=== PATIENT | male | born 1955 | race Caucasian/White ===

== ENCOUNTER 2017-10-07 19:05 | Emergency (ER) | payer MEDICARE ==
[2017-10-07 20:13] LABS: #Basophils 0.1 thou/uL (0.0-0.2); #Eosinphils 0.3 thou/uL (0.0-0.7); #Lymphocytes 3.6 thou/uL (1.20-3.40); #Monocytes 1.3 thou/uL (0.11-0.59); #Neutrophils 8.9 thou/uL (1.40-6.50); %Basophils 0.9 % (0.0-1.0); %Eosinophils 2.3 % (0.0-10.0); %Lymphocytes 25.1 % (21.0-51.0); %Neutrophils 62.7 % (42.0-75.0); Hemoglobin 14.1 g/dL (14.0-18.0); Mean Corpuscular HGB CONC 33.5 g/dL (32.0-36.0); Mean Corpuscular Hemoglobin 32.1 pg (27.0-31.0); Mean Corpuscular Volume 95.7 fl (80.0-94.0); Mean Platelet Volume 8.2 fL (7.4-10.4); Platelet Count 390 thou/uL (130-400); RBC Distribution Width 11.1 % (11.5-14.5); White Blood Cell (WBC) Count 14.3 thou/uL (4.8-10.8)
[2017-10-07 20:41] LABS: ALT (SGPT) 18 U/L (8-55); AST (SGOT) 16 U/L (5-34); Albumin 4.3 g/dL (3.4-4.8); Alkaline Phosphatase 83 U/L (40-150); Anion Gap 14 mmol/L (10-20); BUN (Urea Nitrogen) 31 mg/dL (8.4-25.7); Bilirubin, Total 1.3 mg/dL (0.2-1.2); Calc. Creatinine Clearance 0 mL/min (70-130); Calcium 10.3 mg/dL (7.8-10.44); Carbon Dioxide 25 mmol/L (23-31); Chloride 101 mmol/L (98-107); Estimated GFR-MDRD 44; Globulin 3.8 g/dL (2.4-3.5); Glucose 245 mg/dL (80-115); Protein, Total 8.1 g/dL (5.8-8.1); Sodium 136 mmol/L (136-145)
[2017-10-07] MEDS ORDERED: Sterile Water 10 ML ONE (20:54)
[2017-10-07] MEDS ORDERED: methylPREDNISolone Sod Succ/PF 125 MG/2 ML VIAL ONE (20:54)
--- NOTE | 2017-10-07 22:25 | RAD ---
CHEST TWO VIEWS: History: Dyspnea. Comparison: Chest one view, 09-09-13. FINDINGS: Lungs are clear. No pneumothorax or effusion. Cardiac silhouette and mediastinal contours within norm al limits. There is an area of sclerosis in the right humeral head. IMPRESSION: 1. No acute intrathoracic abnormality. 2. Area of sclerosis in the right humeral head which may represent an area of avascular necrosis. Elsa der radiographs recommended. POS: [facility]
== END 2017-10-07 21:10 | disposition home or self-care (01) ==
LOC: ERS 19:05
DX: J20.9 Acute bronchitis, unspecified (principal); E11.9 Type 2 diabetes mellitus without complications; I10 Essential (primary) hypertension; E78.5 Hyperlipidemia, unspecified; F17.210 Nicotine dependence, cigarettes, uncomplicated
CPT/HCPCS: 36415; 71046; 80053; 85025; 94640; 96372; A4216; J2930; J7620

== ENCOUNTER 2018-01-01 21:08 | Emergency (ER) | payer MEDICARE, MEDICAID ==
[2018-01-01] MEDS ORDERED: HYDROcodone/Acetaminophen 5/325 mg Tablet ONE (22:20)
--- NOTE | 2018-01-01 22:36 | RAD ---
RIGHT FOOT THREE VIEWS: 01/01/18 HISTORY: 62-year-old male with history of right foot pain following a mechanical fall this morning. There is some prominent soft tissue swelling of the forefoot and midfoot, particularly anteriorly. He terogeneous bony demineralization and fairly severe degenerative osteoarthrosis changes including briseida e hallux valgus deformity. Prominent vascular calcifications. No acute fracture or dislocation. IMPRESSION: Soft tissue swelling with degenerative changes and vascular calcifications without acute fracture or dislocation. POS: [facility]
--- NOTE | 2018-01-01 23:00 | RAD ---
RIGHT ANKLE THREE VIEWS: 01/01/18 HISTORY: 62-year-old male with history of right ankle pain following a mechanical fall this morning. There is some soft tissue swelling noted at the level of the ankle. There is some heterogeneous bony demineralization as well as some minimal arthritic changes and prominent vascular calcification. Ther e is a small bony density between the lateral talus and the fibular tip, this could conceivably repre sent a tiny avulsion injury, age indeterminate. IMPRESSION: Minimal soft tissue swelling without evidence for overt acute fracture or dislocation. Heterogeneous bone demineralization with some arthrosis and degenerative changes. Tiny bone density between the lat eral talus and fibular tip possibly related to an avulsion injury, age indeterminate. POS: [facility]
== END 2018-01-01 23:03 | disposition home or self-care (01) ==
LOC: ERS 21:08
DX: S93.401A Sprain of unspecified ligament of right ankle, initial encounter (principal); E11.9 Type 2 diabetes mellitus without complications; I10 Essential (primary) hypertension; E78.00 Pure hypercholesterolemia, unspecified; F17.210 Nicotine dependence, cigarettes, uncomplicated; Z79.82 Long term (current) use of aspirin; Z79.899 Other long term (current) drug therapy; Z79.84 Long term (current) use of oral hypoglycemic drugs; X50.1XXA Overexertion from prolonged static or awkward postures, initial encounter

== ENCOUNTER 2018-03-11 15:15 | Inpatient (IN) | payer MEDICARE, MEDICAID ==
--- NOTE | 2018-03-11 15:55 | RAD ---
CHEST PA AND LATERAL: HISTORY: A 62-year-old male with a history of fever. COMPARISON: 10/07/17. FINDINGS: Postop posterior surgical changes of the cervicothoracic junction, stable. Heart size is within norm al limits. The lungs are clear. IMPRESSION: No acute intrathoracic disease. No evidence of pneumonia. Stable appearance from prior study. POS: [facility]
[2018-03-11 16:28] LABS: Band 20 % (5-11); Dohle Bodies SLIGHT; Hemoglobin 10.7 g/dL (14.0-18.0); Lymphocytes 4 % (21-51); MDiff Complete? YES; Mean Corpuscular HGB CONC 35.1 g/dL (32.0-36.0); Mean Corpuscular Hemoglobin 32.1 pg (27.0-31.0); Mean Corpuscular Volume 91.4 fl (80.0-94.0); Mean Platelet Volume 9.6 fL (7.4-10.4); Monocytes 5 % (0-10); Neutrophil 70 % (42-75); PLT Morphology Comment Appears Adequate; Platelet Count 201 thou/uL (130-400); RBC Distribution Width 11.6 % (11.5-14.5); Reactive Lymphocytes 1 % (0-10); Red Blood Cell (RBC) Count 3.34 mill/uL (4.70-6.10); Toxic Granulation SLIGHT; Vacuoles SLIGHT; White Blood Cell (WBC) Count 23.9 thou/uL (4.8-10.8)
[2018-03-11 16:30] LABS: Anion Gap 19 mmol/L (10-20); BUN (Urea Nitrogen) 64 mg/dL (8.4-25.7); Calc. Creatinine Clearance 0 mL/min (70-130); Calcium 9.7 mg/dL (7.8-10.44); Carbon Dioxide 18 mmol/L (23-31); Chloride 100 mmol/L (98-107); Estimated GFR-MDRD 15; Glucose 179 mg/dL (80-115); Potassium 4.2 mmol/L (3.5-5.1); Sodium 133 mmol/L (136-145)
[2018-03-11 16:40] LABS: Bilirubin Small (Negative); Blood, Urine Trace (Negative); Clarity Cloudy (Clear); Glucose, Urine (Dipstick) Negative (Negative); Leukocyte Negative (Negative); Nitrite Negative (Negative); Protein, Urine (Dipstick) 100 mg/dL (Neg-Trace); Urobilinogen 0.2 mg/dL (0.2-1.0)
[2018-03-11 16:47] LABS: Bacteria/HPF 1+ HPF (None Seen); Squamous Epithelial 0-3 HPF (0-3); WBC/HPF 0-3 HPF (0-3)
[2018-03-11 16:48] LABS: Crystals/HPF 1+ AMORPH URATES HPF (Negative); Other Casts/LPF 0-3 COARSE GRAN LPF (0-3 Hyaline)
[2018-03-11 17:03] LABS: ALT (SGPT) 27 U/L (8-55); AST (SGOT) 71 U/L (5-34); Albumin 3.7 g/dL (3.4-4.8); Alkaline Phosphatase 70 U/L (40-150); Bilirubin, Direct 0.7 mg/dL (0.1-0.3); Bilirubin, Total 1.5 mg/dL (0.2-1.2); Lipase 8 U/L (8-78); Protein, Total 7.5 g/dL (5.8-8.1)
[2018-03-11] MEDS ORDERED: Piperacillin/Tazobactam 3.375 GM VIAL ONE (17:20)
[2018-03-11] MEDS ORDERED: Sodium Chloride 0.9% 100 ML ONE (17:20)
[2018-03-11] MEDS ORDERED: Sodium Bicarb 50 MEQ/50 ML Abboject 8.4% SYRINGE ONE (17:43)
[2018-03-11] MEDS ORDERED: Norepinephrine 4 MG/4 ML VIAL ONE ×2 (18:00→18:02)
[2018-03-11] MEDS ORDERED: diphenhydrAMINE 50 MG/ML VIAL ONE (18:42)
--- NOTE | 2018-03-11 19:47 | RAD ---
PORTABLE SUPINE ABDOMEN: INDICATIONS: Assess central line placement via the left femoral vein. FINDINGS: Soft tissue attenuation obscures detail. A catheter overlies the left femoral vein, and the tip appe ars located in the region of the left iliac vein. Bowel gas pattern is unremarkable, although poorly evaluated on this portable projection. POS: [facility]
[2018-03-11] MEDS ORDERED: Sodium Chloride 0.9% 1,000 ML IV SCH (20:15)
[2018-03-11] MEDS: Sodium Chloride 0.9% 1,000 ML IV SCH (20:58)
[2018-03-11] MEDS ORDERED: Norepinephrine 8 MG/250 ML BAG IVPB PRN (22:13)
[2018-03-11] MEDS ORDERED: Dextrose 5% in Water 1,000 ML IV PRN (23:25)
[2018-03-11] MEDS ORDERED: Dextrose 50% Abboject 50 ML SYRINGE SLOW IVP PRN (23:25)
[2018-03-11] MEDS ORDERED: HumaLOG 300 UNITS/3 ML VIAL SC PRN (23:25)
[2018-03-11] MEDS ORDERED: Guaifenesin DM 100-10/5 ML UDCUP PO PRN (23:25)
[2018-03-11] MEDS ORDERED: Acetaminophen 325 MG TAB PO PRN (23:25)
[2018-03-11] MEDS ORDERED: Vancomycin HCl 500 MG in Sodium Chloride 0.9% 100 ML IVPB SCH (23:30)
[2018-03-11] MEDS ORDERED: Cefepime 1 GM in Sodium Chloride 0.9% 100 ML IVPB SCH (23:30)
--- NOTE | 2018-03-11 23:52 | RAD ---
PORTABLE CHEST: HISTORY: Sepsis. COMPARISON: 09/09/2013 FINDINGS: The lungs appear clear. No infiltrate or vascular congestion is seen. The heart is mildly prominent but stable. IMPRESSION: No acute lung process. POS: [facility]
[2018-03-12] MEDS ORDERED: HOLD VANCOMYCIN FOR LEVEL >20 FS SCH (01:15)
[2018-03-12] MEDS ORDERED: Vancomycin HCl 750 MG in Sodium Chloride 0.9% 250 ML 250 ML IVPB SCH (01:15)
[2018-03-12] MEDS ORDERED: Vancomycin HCl 1 GM in Premix Bag 1 BAG IVPB SCH (01:15)
[2018-03-12] MEDS ORDERED: Vancomycin HCl 1.25 GM in Sodium Chloride 0.9% 250 ML 250 ML IVPB SCH (01:15)
[2018-03-12] MEDS ORDERED: Vancomycin HCl 500 MG in Sodium Chloride 0.9% 100 ML IVPB SCH (01:15)
[2018-03-12 01:57] LABS: Bilirubin Negative (Negative); Blood, Urine Moderate (Negative); Clarity CLOUDY (Clear); Glucose, Urine (Dipstick) Negative (Negative); Leukocyte Negative (Negative); Nitrite Negative (Negative); Protein, Urine (Dipstick) 30 mg/dL (Neg-Trace); Specific Gravity, Urine 1.014 (1.002-1.036); pH, Urine 5.5 (5.0-9.0)
[2018-03-12 01:59] LABS: Squamous Epithelial 0-3 HPF (0-3); WBC/HPF 0-3 HPF (0-3)
[2018-03-12 02:01] LABS: Pathc Cast-AUWi Flag 4.94 (0-2.49); Yeast-AUWi Flag 67.1 (0-25.0)
[2018-03-12 02:11] LABS: RBC/HPF 0-3 HPF (0-3)
[2018-03-12 02:12] LABS: Bacteria/HPF Rare-Few HPF (None Seen); Hyaline Casts/LPF 4-6 HYALINE CAST LPF (0-3 Hyaline); Other Casts/LPF 0-3 COARSE GRAN LPF (0-3 Hyaline); Yeast-All Forms None Seen HPF (None Seen)
[2018-03-12] MEDS: Sodium Chloride 0.9% 1,000 ML IV SCH ×4 (03:55→23:39)
[2018-03-12 05:21] LABS: ALT (SGPT) 31 U/L (8-55); AST (SGOT) 62 U/L (5-34); Albumin 3.2 g/dL (3.4-4.8); Alkaline Phosphatase 84 U/L (40-150); Anion Gap 19 mmol/L (10-20); BUN (Urea Nitrogen) 62 mg/dL (8.4-25.7); Calc. Creatinine Clearance 34 mL/min (70-130); Calcium 8.6 mg/dL (7.8-10.44); Carbon Dioxide 17 mmol/L (23-31); Chloride 106 mmol/L (98-107); Estimated GFR-MDRD 20; Globulin 3.4 g/dL (2.4-3.5); Glucose 215 mg/dL (80-115); Protein, Total 6.6 g/dL (5.8-8.1); Sodium 138 mmol/L (136-145)
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
[2018-03-12 07:27] LABS: Band 38 % (5-11); Burr Cells SLIGHT = 2-5 cells (100X) (0-1/hpf); Hemoglobin 10.7 g/dL (14.0-18.0); Lymphocytes 6 % (21-51); MDiff Complete? YES; Mean Corpuscular HGB CONC 33.6 g/dL (32.0-36.0); Mean Corpuscular Hemoglobin 32.3 pg (27.0-31.0); Monocytes 5 % (0-10); Neutrophil 51 % (42-75); PLT Morphology Comment Appears Adequate; Platelet Count 246 thou/uL (130-400); RBC Distribution Width 12.1 % (11.5-14.5); Red Blood Cell (RBC) Count 3.32 mill/uL (4.70-6.10); White Blood Cell (WBC) Count 23.1 thou/uL (4.8-10.8)
[2018-03-12] MEDS: Docusate 100 MG CAP PO SCH ×2 (08:07→21:03)
[2018-03-12] MEDS: Famotidine 20 MG TAB PO SCH (08:07)
[2018-03-12] MEDS: Polyethylene Glycol 3350 17 GM Packet PO SCH (08:07)
[2018-03-12] MEDS: Enoxaparin Sodium 30 MG/0.3 ML SYRINGE SC SCH (08:07)
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
[2018-03-12] MEDS: HumaLOG 300 UNITS/3 ML VIAL SC PRN ×3 (09:52→21:12)
--- NOTE | 2018-03-12 10:19 | ULT ---
ULTRASOUND SOFT TISSUE OTHER: HISTORY: Left inguinal abscess. COMPARISON: None. TECHNIQUE: Real-time cannon scale and color evaluation of the soft tissues of the left thigh was performed. FINDINGS: There is extensive subcutaneous injection of fat with fluid. There is moderate interstitial fluid. No drainable collection. IMPRESSION: 1. No drainable collection appreciated on this examination, measuring up to 6 cm from the skin surfa ce. 2. Extensive inflammatory changes of the fat, as well as subcutaneous edema. POS: [facility]
--- NOTE | 2018-03-12 10:57 | CON ---
DATE OF CONSULTATION: 03/12/2018 SERVICE: Pulmonary Medicine REASON FOR CONSULTATION: ICU patient. HISTORY OF PRESENT ILLNESS: The patient is a 62-year-old white male with past medical history significant for deconditioning and debility. He spends much of his time in bed or in a chair. He has got chronic breakdown on his backside. He has home health visiting with him in order to get this thing fixed up if possible. In this setting, for the past 2 days, he had overwhelming weakness. He presented to the emergency department with elevated fevers. He denies any current chest pain, nausea, vomiting, fevers or chills. He was in acute renal failure. He was given several liters of fluid. 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 He currently denies any chest pain, nausea, vomiting, fevers or chills. He has no abdominal discomfort and no discomfort in the back side. He has horrendous peripheral vascular disease and continues to smoke. PAST MEDICAL HISTORY: 1. Type 2 diabetes mellitus. 2. Peripheral vascular disease. 3. Hypertension. 4. Dyslipidemia. 5. Cervical cord injury. ALLERGIES: No known drug allergies. MEDICATIONS: List of his inpatient medications were reviewed. No specific updates were made at this time. FAMILY HISTORY: Noncontributory. SOCIAL HISTORY: He smokes a half pack per day and has greater than a 50-pack- year history of smoking. He denies any alcohol or illicit drugs. REVIEW OF SYSTEMS: General, head, ears, eyes, nose, throat, cardiovascular, respiratory, GI, , musculoskeletal, neurologic and skin is negative except as mentioned in the HPI. PHYSICAL EXAMINATION: VITAL SIGNS: Afebrile, pulse 49, respirations 123/53, respirations 13, saturation 99% on room air. GENERAL: The patient is awake and alert, in no apparent distress. LUNGS: There is excellent air movement with no prolonged expiratory phase or wheezing. No rhonchi or crackles are appreciated. HEART: Bradycardic. Regular. ABDOMEN: Soft, nontender, nondistended. Bowel sounds are positive. MUSCULOSKELETAL: No cyanosis or clubbing. There is no pitting in the bilateral lower extremities. GENITOURINARY: Hewitt catheter in place. NEUROLOGIC: Grossly nonfocal. LABORATORY DATA: WBC 23.1, hemoglobin 10.3, platelets 246,000. Band count is 38%. Creatinine 3.19 and down trending, BUN 62, also stable. Basic metabolic profile is otherwise unremarkable. AST is down trending to 62. CRP 33, cortisol 15. CK 2000. Urinalysis is essentially unremarkable. Beta hydroxybutyric acid falls within the normal limits. Blood cultures x2, and toe decubitus culture is currently pending and/or unremarkable. IMAGING: Soft tissue ultrasound demonstrates no drainable collection appreciated on this exam. This measures up to 6 cm from the skin surface. There is extensive inflammatory changes of the fat as well as subcutaneous edema. Chest x-ray demonstrates no acute cardiopulmonary abnormality. C-spine hardware is in place. Abdominal x-ray demonstrates no acute belly abnormality. Soft tissue attenuation obscures detail. ASSESSMENT: 1. Septic shock, resolved. 2. Cellulitis/soft tissue infection of the perineum. 3. Acute kidney injury. 4. Type 2 diabetes mellitus. 5. Peripheral vascular disease. 6. Tobacco abuse. DISCUSSION AND PLAN: He has already been weaned off of the Levophed. His urine output is picking up beautifully. As such, it looks like he is clearing his severe sepsis profile. We will continue our empiric antibiotics, and other supportive medications. He will remain in the ICU until after he returns from surgery. If he remains stable late into the afternoon, he can be considered for transition to the floor. I agree with holding antihypertensives, and metformin. We will need to restart some of his other home medications. The methylprednisolone will be interrupted. 70 minutes have been devoted to this patient in various activities. I personally reviewed all imaging studies and laboratory data noted within this document. For fifty percent of this time, I was interacting with the patient at the bedside or coordinating care with the care team. For the remainder of the time I was immediately available to the patient in the hospital unit. JOSE JUAN
[2018-03-12] MEDS ORDERED: Ketamine 50 MG/ML VIAL ONE (11:01)
[2018-03-12] MEDS ORDERED: Midazolam HCl 2 mg/2 ml Vial ONE (11:02)
[2018-03-12] MEDS ORDERED: traMADol HCl 50 MG TAB PO PRN ×2 (12:43)
[2018-03-12] MEDS ORDERED: Acetaminophen 500 MG TAB PO PRN (12:43)
[2018-03-12] MEDS ORDERED: Fentanyl 100 MCG/2 ML VIAL ONE (12:58)
--- NOTE | 2018-03-12 13:07 | OP ---
DATE OF PROCEDURE: 03/12/2018 PREOPERATIVE DIAGNOSES: Sepsis; diabetes; necrotizing fasciitis, left medial proximal thigh, groin c rease, perineum, parascrotal. POSTOPERATIVE DIAGNOSES: Sepsis; diabetes; necrotizing fasciitis, left medial proximal thigh, groin crease, perineum, parascrotal. PROCEDURE: Incision and drainage, resectional, excisional sharp 10-blade debridement skin, subcutane ous tissue/fascia of extensive necrotizing fasciitis. Culture and sensitivity of purulent material. Pulse irrigation. Wound care placed a wound VAC. SURGEON: Dr. Wilfred Bruce. ANESTHESIA: General anesthesia. PROCEDURE: The patient was taken to the operating room where under general anesthesia, right side of the neck was prepped with ChloraPrep, draped in routine fashion, Seldinger technique used. Under ul trasound guidance, placed a right internal jugular vein triple-lumen catheter, secured with 3-0 silk suture. Each port aspirated blood and flushed with saline solution. Sterile dressing applied. In the dorsal lithotomy position, Hewitt catheter placed, perineum, thigh, and groins were prepared wi th Betadine and draped in routine fashion. Excision of necrotic infected skin, subcutaneous tissue, underlying fascia, down to the muscle at adductors performed draining copious amounts of purulent mat erial that was tracking up towards the groin crease. Necrotic skin and subcutaneous tissue debrided sharply through his blistering skin, ecchymotic skin, necrotic skin. This left a wound approximately 10 x 8 cm wound. Pulse irrigation performed. Hemostasis gained with cautery. Wound Care arrived t o place a wound VAC, residual tissue looked healthy.
[2018-03-12] MEDS ORDERED: Ondansetron HCl/PF 4 MG/2 ML Vial ONE (13:24)
[2018-03-12] MEDS ORDERED: PROPOFOL 200 MG/20 ML VIAL ONE (13:24)
--- NOTE | 2018-03-12 14:32 | RAD ---
PORTABLE AP CHEST X-RAY: 03/12/2018 HISTORY: Central line placement. COMPARISON: 03/11/2018 FINDINGS: There has been interval placement of a right internal jugular vein central venous catheter, with the tip overlying the cavoatrial junction. No pneumothorax is seen. The cardiac silhouette is stable in size. There is mild linear atelectasis at the left lung base. The lungs are otherwise clear. Post surgical changes of the cervicothoracic spine are again present. IMPRESSION: 1. Interval placement, right internal jugular vein central venous catheter, without evidence of a pn eumothorax. 2. Atelectasis left lung base. POS: [facility]
[2018-03-12] MEDS: Piperacillin/Tazobactam 2.25 GM in Sodium Chloride 0.9% 100 ML IVPB SCH ×2 (14:53→21:03)
--- NOTE | 2018-03-12 16:11 | PDOC.PN ---
- Subjective Encounter Start Date: 03/12/18 Encounter Start Time: 16:08 Subjective: feels better/no F/Chills.no pain -: no N/V/D -: tired - Objective Resuscitation Status: Resuscitation Status FULL:Full Resuscitation MAR Reviewed: Yes Vital Signs & Weight: Vital Signs (12 hours) Temp Pulse Resp Pulse Ox 03/12/18 14:31 60 17 99 03/12/18 14:00 97.7 F 03/12/18 08:00 97.7 F 03/12/18 07:40 97.7 F 63 20 98 03/12/18 07:17 63 22 H 97 03/12/18 07:00 97.7 F Weight Admit Weight 206 lb 9.17 oz Weight 206 lb 9.17 oz Most Recent Monitor Data Heart Rate from ECG 50 NIBP 100/44 NIBP BP-Mean 67 Respiration from ECG 11 SpO2 98 I&O: 03/11/18 03/12/18 03/13/18 06:59 06:59 06:59 Intake Total 1600 0 Output Total 935 665 Balance 665 -665 Result Diagrams: 03/12/18 03:30 03/12/18 03:30 Additional Labs: Accuchecks 03/12/18 03/12/18 03/12/18 13:09 09:52 03:48 POC Glucose 151 H 184 H 221 H 03/11/18 22:38 POC Glucose 168 H Microbiology 03/11/18 20:35 Toe - Decubitis Bacterial Culture - Preliminary 03/11/18 17:10 Venous blood - Right Hand Blood Culture - Preliminary Specimen has been received and culture in progress. No Growth to date. 03/11/18 16:50 Venous blood - Right Arm Blood Culture - Preliminary Specimen has been received and culture in progress. No Growth to date. Laboratory Tests 06/11/17 10/07/17 03/11/18 13:00 20:06 16:05 Carbon Dioxide 18 L Creatinine 0.88 1.62 H 4.17 H 03/12/18 03:30 Carbon Dioxide 17 L Creatinine 3.19 H Phys Exam - Physical Examination Constitutional: NAD pale but awake and alert HEENT: PERRLA, moist MMs, sclera anicteric, oral pharynx no lesions Neck: no nodes, no JVD, supple, full ROM Respiratory: no wheezing, no rales, no rhonchi, clear to auscultation bilateral Cardiovascular: RRR, no significant murmur, no rub Gastrointestinal: soft, non-tender, no distention, positive bowel sounds Musculoskeletal: no edema, pulses present Neurological: non-focal, normal sensation, moves all 4 limbs Psychiatric: normal affect, A&O x 3 Skin: no rash Dx/Plan (1) Septic shock Code(s): A41.9 - SEPSIS, UNSPECIFIED ORGANISM; R65.21 - SEVERE SEPSIS WITH SEPTIC SHOCK Status: Acute Comment: off of pressors (2) Severe sepsis with acute organ dysfunction Code(s): A41.9 - SEPSIS, UNSPECIFIED ORGANISM; R65.20 - SEVERE SEPSIS WITHOUT SEPTIC SHOCK Status: Acute (3) ИВАН (acute kidney injury) Code(s): N17.9 - ACUTE KIDNEY FAILURE, UNSPECIFIED Status: Acute (4) Inguinal abscess Code(s): L02.214 - CUTANEOUS ABSCESS OF GROIN Status: Acute (5) Rhabdomyolysis Code(s): M62.82 - RHABDOMYOLYSIS Status: Acute (6) Metabolic acidosis Code(s): E87.2 - ACIDOSIS Status: Acute (7) DM2 (diabetes mellitus, type 2) Status: Chronic - Plan continue antibiotics, DVT proph w/SCDs clinically better. s/p I&D of left inguinal abscess today -: cont empiric ABx.follow Cx results -: cont IVF.recheck CPK -: ECHO done -follow results -: daily labs * .ISS and accuchecks Review of Systems - Review of Systems Constitutional: weakness, malaise Eyes: negative: Pain, Vision Change, Conjunctivae Inflammation, Eyelid Inflammation, Redness, Other ENT: negative: Ear Pain, Ear Discharge, Nose Pain, Nose Discharge, Nose Congestion, Mouth Pain, Mouth Swelling, Throat Pain, Throat Swelling, Other Respiratory: negative: Cough, Dry, Shortness of Breath, Hemoptysis, SOB with Excertion, Pleuritic Pain, Sputum, Wheezing Cardiovascular: negative: chest pain, palpitations, orthopnea, paroxysmal nocturnal dyspnea, edema, light headedness, other Gastrointestinal: negative: Nausea, Vomiting, Abdominal Pain, Diarrhea, Constipation, Melena, Hematochezia, Other Genitourinary: negative: Dysuria, Frequency, Incontinence, Hematuria, Retention , Other Musculoskeletal: Other (Left groin pain) Skin: negative: Rash, Lesions, Jossue, Bruising, Other Neurological: negative: Weakness, Numbness, Incoordination, Change in Speech, Confusion, Seizures, Other - Medications/Allergies Allergies/Adverse Reactions: Allergies Allergy/AdvReac Type Severity Reaction Status Date / Time No Known Allergies Allergy Verified 09/15/13 20:48 Medications: Current Medications Acetaminophen (Tylenol) 650 mg PO Q4H PRN PRN Reason: Headache/Fever or Pain Acetaminophen (Tylenol) 1,000 mg PO Q6H PRN PRN Reason: Moderate to Severe Pain (6-10) Albuterol/Ipratropium (Duoneb) 3 ml NEB [id number] [facility] Last Admin: 03/12/18 14:31 Dose: 3 ml Aspirin (Aspirin Chewable) 81 mg PO DAILY [facility] Last Admin: 03/12/18 08:07 Dose: 81 mg Dextrose/Water (Dextrose 50%) 25 gm SLOW IVP PRN PRN PRN Reason: Hypoglycemia Docusate Sodium (Colace) 100 mg PO BID [facility] Last Admin: 03/12/18 08:07 Dose: 100 mg Enoxaparin Sodium (Lovenox) 30 mg SC 0900 [facility] Last Admin: 03/12/18 08:07 Dose: 30 mg Famotidine (Pepcid) 20 mg PO DAILY [facility] Last Admin: 03/12/18 08:07 Dose: 20 mg Glucagon (Glucagon) 1 mg IM PRN PRN PRN Reason: Hypoglycemia Guaifenesin/Dextromethorphan (Robitussin Dm) 15 ml PO Q4H PRN PRN Reason: Cough Sodium Chloride (Normal Saline 0.9%) 1,000 mls @ 150 mls/hr IV .Q6H40M [facility] Last Admin: 03/12/18 08:07 Dose: 1,000 mls Norepinephrine Bitartrate (Levophed) 250 mls @ 0 mls/hr IVPB INF PRN; Protocol ; Titrate PRN Reason: Blood Pressure Dextrose/Water (D5w) 1,000 mls @ 0 mls/hr IV .Q0M PRN; As Directed PRN Reason: Hypoglycemia Vancomycin HCl 1 gm/ Device 200 mls @ 200 mls/hr IVPB 1800 NATALIE Piperacillin Sod/Tazobactam (Sod 2.25 gm/ Sodium Chloride) 100 mls @ 200 mls/ hr IVPB Q8HR [facility] Last Admin: 03/12/18 14:53 Dose: Not Given Insulin Human Lispro (Humalog) 0 units SC .MODERATE SLIDING SC PRN PRN Reason: Moderate Correctional Scale Last Admin: 03/12/18 09:52 Dose: 2 unit Insulin Human Lispro (Humalog) 0 units SC .BEDTIME SLIDING SC PRN PRN Reason: Bedtime Correctional Scale Last Admin: 03/12/18 03:55 Dose: 2 unit Morphine Sulfate (Morphine Sulfate) 4 mg SLOW IVP Q2H PRN PRN Reason: .BREAKTHROUGH Pain Polyethylene Glycol (Miralax) 17 gm PO DAILY [facility] Last Admin: 03/12/18 08:07 Dose: 17 gm Sodium Chloride (Flush - Normal Saline) 10 ml IVF Q12HR [facility] Sodium Chloride (Flush - Normal Saline) 10 ml IVF PRN PRN PRN Reason: Saline Flush Tramadol HCl (Ultram) 50 mg PO Q12H PRN PRN Reason: Pain 1ST LINE Tramadol HCl (Ultram) 100 mg PO Q12H PRN PRN Reason: Pain 2ND LINE
[2018-03-12 17:27] LABS: Vancomycin, Random 9.2 ug/mL (See Comment)
[2018-03-12] MEDS: Vancomycin HCl 1 GM in Premix Bag 1 BAG IVPB SCH (17:36)
--- NOTE | 2018-03-13 02:25 | CON ---
DATE OF CONSULTATION: 03/12/2018 NEPHROLOGY CONSULT CONSULTING PHYSICIAN: Dr. Drummond. REASON FOR CONSULTATION: Acute kidney injury. REASON FOR ADMISSION: Sepsis and septic shock. HISTORY OF PRESENT ILLNESS: This is a 62-year-old white male with history of type 2 diabetes, hypert ension, hyperlipidemia came to the hospital with weakness and fatigue and was found to have septic sh ock most likely from a left inguinal abscess and is getting treated for that. He was found to have a creatinine of 4.17. His last creatinine was 1.6 in 10/2017 and 06/11/2017 was 0.8. Patient is feel ing better. He was hypotensive and was on pressors and is off pressors and is making more urine. No fever, no nausea, vomiting currently, no chest pain, shortness of breath reported to me. No abdomin al pain. PAST MEDICAL HISTORY: Positive for type 2 diabetes, hypertension, hyperlipidemia, cervical cord inju ry. PAST SURGICAL HISTORY: Neck surgery and back surgery. HOME MEDICATIONS: List includes potassium tabs, atorvastatin, hydrochlorothiazide, furosemide, baclo fen, aspirin, amlodipine, losartan, glyburide, metformin. SOCIAL HISTORY: No smoking, alcohol, or illicit drug abuse. FAMILY HISTORY: No history of kidney disease. REVIEW OF SYSTEMS: The following complete review of systems was negative, unless otherwise mentioned in the HPI or below: Constitutional: Weight loss or gain, ability to conduct usual activities. Sk in: Rash, itching. Eyes: Double vision, pain. ENT/Mouth: Nose bleeding, neck stiffness, pain, te nderness. Cardiovascular: Palpitations, dyspnea on exertion, orthopnea. Respiratory: Shortness of breath, wheezing, cough, hemoptysis, fever, or night sweats. Gastrointestinal: Poor appetite, abdo sideny pain, heartburn, nausea, vomiting, constipation, or diarrhea. Genitourinary: Urgency, frequen cy, dysuria, nocturia. Musculoskeletal: Pain, swelling. Neurologic/Psychiatric: Anxiety, depressi on. Allergy/Immunologic: Skin rash, bleeding tendency. PHYSICAL EXAMINATION: GENERAL: This is a well-built male, very lethargic. VITAL SIGNS: Temperature 97.5, pulse is 66, respiratory rate 18, blood pressure 121/59. HEENT: Atraumatic, normocephalic. Oral mucosa is moist. NECK: Supple, no masses. CARDIOVASCULAR: S1, S2 heard. Rate and rhythm regular. RESPIRATORY: Clear. MUSCULOSKELETAL: 1+ edema. DERMATOLOGIC: No skin rash. NEUROLOGIC: Alert, awake. PSYCHIATRIC: Normal mood and affect. LABORATORY DATA: Hemoglobin is 10.7, WBC is 23.1. Potassium 4.0, BUN is 62, creatinine is 3.1 from 4.1. ASSESSMENT AND PLAN: 1. Acute kidney injury most likely from septic shock. Creatinine with significant improvement from 4.1 to 3.1 with IV hydration with supportive care and pressor support. Continue current management w [facility] sepsis protocol and keep systolic more than 90. Avoid nephrotoxins. He is on various nephrotoxi c agents at home given the clinical context. 2. Would avoid CANDELARIO inhibitor and diuretic at this point. Continue on IV hydration if tolerated. 3. Anemia, rule out any bleed. 4. Leukocytosis. 5. Septic shock. 6. Metabolic acidosis, most likely from hypoperfusion. 7. Elevated liver enzymes. 8. Mild hypoalbuminemia. 9. Cortisol level is stable. 10. Pyuria, rule out infection. Follow up cultures. Continue supportive care including antibiotics, renally dose medications. Continue IV hydration as t olerated and pressor support if needed. Follow up with critical care team and renal function is stab le and getting better. No acute indication for dialysis. We will be happy to follow this case with you. Thank you for the consult.
[2018-03-13 05:01] LABS: #Lymphocytes 1.2 thou/uL (1.20-3.40); #Neutrophils 10.8 thou/uL (1.40-6.50); %Basophils 0.3 % (0.0-1.0); %Eosinophils 0.2 % (0.0-10.0); %Lymphocytes 9.5 % (21.0-51.0); %Monocytes 7.3 % (0.0-10.0); %Neutrophils 82.7 % (42.0-75.0); Hemoglobin 9.1 g/dL (14.0-18.0); Mean Corpuscular HGB CONC 33.9 g/dL (32.0-36.0); Mean Corpuscular Hemoglobin 32.3 pg (27.0-31.0); Mean Corpuscular Volume 95.4 fl (80.0-94.0); Mean Platelet Volume 8.5 fL (7.4-10.4); Platelet Count 200 thou/uL (130-400); RBC Distribution Width 12.2 % (11.5-14.5); Red Blood Cell (RBC) Count 2.83 mill/uL (4.70-6.10); White Blood Cell (WBC) Count 13.1 thou/uL (4.8-10.8)
[2018-03-13 05:19] LABS: ALT (SGPT) 34 U/L (8-55); AST (SGOT) 36 U/L (5-34); Albumin 2.9 g/dL (3.4-4.8); Alkaline Phosphatase 64 U/L (40-150); Anion Gap 14 mmol/L (10-20); BUN (Urea Nitrogen) 46 mg/dL (8.4-25.7); Bilirubin, Total 0.4 mg/dL (0.2-1.2); CK (CPK) 221 U/L (30-200); Calc. Creatinine Clearance 54 mL/min (70-130); Calcium 8.3 mg/dL (7.8-10.44); Carbon Dioxide 21 mmol/L (23-31); Chloride 109 mmol/L (98-107); Estimated GFR-MDRD 36; Globulin 3.1 g/dL (2.4-3.5); Glucose 282 mg/dL (80-115); Potassium 3.8 mmol/L (3.5-5.1); Sodium 140 mmol/L (136-145)
[2018-03-13] MEDS: Sodium Chloride 0.9% 1,000 ML IV SCH ×3 (06:19→18:02)
[2018-03-13] MEDS: Piperacillin/Tazobactam 2.25 GM in Sodium Chloride 0.9% 100 ML IVPB SCH ×3 (06:19→21:30)
[2018-03-13] MEDS: HumaLOG 300 UNITS/3 ML VIAL SC PRN ×3 (06:20→18:02)
[2018-03-13] MEDS: Enoxaparin Sodium 30 MG/0.3 ML SYRINGE SC SCH (08:47)
[2018-03-13] MEDS: Famotidine 20 MG TAB PO SCH (08:48)
[2018-03-13] MEDS: Docusate 100 MG CAP PO SCH ×2 (08:48→21:24)
[2018-03-13] MEDS: Polyethylene Glycol 3350 17 GM Packet PO SCH (08:48)
--- NOTE | 2018-03-13 13:02 | PRG ---
DATE OF SERVICE: 03/13/2018 SERVICE: Pulmonary Medicine. INTERVAL HISTORY: The patient is doing really well from a respiratory standpoint. His only complain t today is that he has got a little bit of gas pain. Otherwise, there has been no interval change to his condition. His blood pressures have firmed up very nicely. He had no events overnight. PHYSICAL EXAMINATION: VITAL SIGNS: Afebrile, pulse 61, blood pressure 121/65, respirations 20, saturation 97% on room air. GENERAL: The patient is awake and alert, in no apparent distress. LUNGS: Excellent air entry. There is no prolonged expiratory phase, wheezing, rhonchi or crackles p resent. HEART: Normal rate and regular. ABDOMEN: Soft, nontender, nondistended. Bowel sounds are positive. MUSCULOSKELETAL: No cyanosis or clubbing. No pitting in the bilateral lower extremities. NEUROLOGIC: Grossly nonfocal. LABORATORY DATA: WBC 13.1 and down trending, hemoglobin 9.1, platelets 200,000. Creatinine 1.90 and beautifully down trending, BUN 46, better. Anion gap 14, bicarbonate 21, chloride 109, sodium 140. CK has improved to 200, AST has also improved. Groin abscess is growing Staph aureus. Blood cultur es remain negative. The toe decubitus is growing Staph aureus as well as Pseudomonas. IMAGING: Echocardiogram demonstrates 45%-50% ejection fraction. Mild left ventricular hypertrophy i s present. Normal right ventricular function. ASSESSMENT: 1. Septic shock, resolved. 2. Cellulitis of the perineum, status post debridement with wound VAC in place, postop day #1. 3. Acute kidney injury, resolving. 4. Type 2 diabetes mellitus. 5. Peripheral vascular disease. 6. Tobacco abuse, ongoing. DISCUSSION AND PLAN: The patient is stable for transition out of the [facility]. We will provide him a co uple doses of simethicone over the next 24 hours. IV fluids will be interrupted if the patient is to lerating p.o. The patient no longer has requirements for inpatient Pulmonary or Critical Care opinio n. As such, I will sign off. Please call with additional questions or concerns moving forward.
--- NOTE | 2018-03-13 16:44 | PDOC.PN ---
- Subjective Encounter Start Date: 03/13/18 Encounter Start Time: 16:42 Subjective: feels good,no fever/chills.tolerating diet -: no nausea/vomiting/diarrhea - Objective Resuscitation Status: Resuscitation Status FULL:Full Resuscitation MAR Reviewed: Yes Vital Signs & Weight: Vital Signs (12 hours) Temp Pulse Resp BP BP Pulse Ox 03/13/18 15:57 98.7 F 83 16 121/65 97 03/13/18 12:13 70 12 03/13/18 12:00 98.0 F 61 20 121/65 97 03/13/18 10:15 98.1 F 62 18 100 03/13/18 10:00 98.1 F 62 18 126/61 100 03/13/18 08:00 97.8 F 47 L 16 96 03/13/18 07:27 54 L 12 99 03/13/18 07:00 97.8 F Weight Admit Weight 206 lb 9.17 oz Weight 216 lb 4.375 oz Most Recent Monitor Data Heart Rate from ECG 71 NIBP 123/48 NIBP BP-Mean 87 Respiration from ECG 25 SpO2 98 I&O: 03/12/18 03/13/18 03/14/18 06:59 06:59 06:59 Intake Total 1600 3193 950 Output Total 935 1770 330 Balance 665 1423 620 Result Diagrams: 03/13/18 04:51 03/13/18 04:51 Additional Labs: Accuchecks 03/13/18 03/13/18 03/12/18 09:36 04:10 21:11 POC Glucose 209 H 284 H 307 H Microbiology 03/12/18 12:30 Groin - Abscess Bacterial Culture - Preliminary 03/11/18 20:35 Toe - Decubitis Bacterial Culture - Preliminary 03/11/18 17:10 Venous blood - Right Hand Blood Culture - Preliminary Specimen has been received and culture in progress. No Growth to date. 03/11/18 16:50 Venous blood - Right Arm Blood Culture - Preliminary Specimen has been received and culture in progress. No Growth to date. Laboratory Tests 03/11/18 03/11/18 03/11/18 16:05 16:05 16:05 WBC 23.9 H Creatinine 4.17 H Lactic Acid 1.9 Total Bilirubin AST ALT Creatine Kinase 06/11/18 06/11/18 06/12/18 16:05 16:05 03:30 WBC Creatinine 3.19 H Lactic Acid Total Bilirubin 1.5 H 1.0 AST 71 H 62 H ALT 27 31 Creatine Kinase 2013 H 03/12/18 03/13/18 03/13/18 03:30 04:51 04:51 WBC 23.1 H 13.1 H Creatinine 1.90 H Lactic Acid Total Bilirubin 0.4 AST 36 H ALT 34 Creatine Kinase 221 H LABS REVIEWED Radiology Reviewed by me: Yes (echo -ef 40-45%,MILD lvh) Phys Exam - Physical Examination Constitutional: NAD HEENT: PERRLA, moist MMs, sclera anicteric, oral pharynx no lesions Neck: no nodes, no JVD, supple, full ROM Respiratory: no wheezing, no rales, no rhonchi, clear to auscultation bilateral Cardiovascular: RRR, no significant murmur, no rub Gastrointestinal: soft, non-tender, no distention, positive bowel sounds Musculoskeletal: no edema, pulses present Neurological: non-focal, normal sensation, moves all 4 limbs Psychiatric: normal affect, A&O x 3 Skin: no rash Dx/Plan (1) Severe sepsis with acute organ dysfunction Code(s): A41.9 - SEPSIS, UNSPECIFIED ORGANISM; R65.20 - SEVERE SEPSIS WITHOUT SEPTIC SHOCK Status: Acute Comment: Due to groin abscess.S/P I&D 03/12/18 (2) ИВАН (acute kidney injury) Code(s): N17.9 - ACUTE KIDNEY FAILURE, UNSPECIFIED Status: Acute Comment: improving (3) Inguinal abscess Code(s): L02.214 - CUTANEOUS ABSCESS OF GROIN Status: Acute (4) Rhabdomyolysis Code(s): M62.82 - RHABDOMYOLYSIS Status: Acute Comment: improving (5) Metabolic acidosis Code(s): E87.2 - ACIDOSIS Status: Acute (6) DM2 (diabetes mellitus, type 2) Status: Chronic (7) Septic shock Code(s): A41.9 - SEPSIS, UNSPECIFIED ORGANISM; R65.21 - SEVERE SEPSIS WITH SEPTIC SHOCK Status: Resolved Comment: off of pressors - Plan continue antibiotics, PT/OT, respiratory therapy, incentive spirometry, DVT proph w/SCDs cont IV ABx.follow final Cx results.wound vac in place s/p I&D -: hemodynamically stable.cont meds as below -: renal Fx much improved w IVF.cont & monitor. -: am labs.may need placement for wound care and PT -: Ok to tarnsfet to medical-surgical floor * . Review of Systems - Review of Systems Constitutional: weakness, malaise. negative: fever, chills, sweats, other Respiratory: negative: Cough, Dry, Shortness of Breath, Hemoptysis, SOB with Excertion, Pleuritic Pain, Sputum, Wheezing Gastrointestinal: negative: Nausea, Vomiting, Abdominal Pain, Diarrhea, Constipation, Melena, Hematochezia, Other Genitourinary: negative: Dysuria, Frequency, Incontinence, Hematuria, Retention , Other Musculoskeletal: negative: Neck Pain, Shoulder Pain, Arm Pain, Back Pain, Hand Pain, Leg Pain, Foot Pain, Other Skin: negative: Rash, Lesions, Jossue, Bruising, Other Neurological: negative: Weakness, Numbness, Incoordination, Change in Speech, Confusion, Seizures, Other - Medications/Allergies Allergies/Adverse Reactions: Allergies Allergy/AdvReac Type Severity Reaction Status Date / Time No Known Allergies Allergy Verified 09/15/13 20:48 Medications: Current Medications Acetaminophen (Tylenol) 650 mg PO Q4H PRN PRN Reason: Headache/Fever or Pain Acetaminophen (Tylenol) 1,000 mg PO Q6H PRN PRN Reason: Moderate to Severe Pain (6-10) Albuterol/Ipratropium (Duoneb) 3 ml NEB [id number] [facility] Last Admin: 03/13/18 12:13 Dose: 3 ml Aspirin (Aspirin Chewable) 81 mg PO DAILY [facility] Last Admin: 03/13/18 08:48 Dose: 81 mg Dextrose/Water (Dextrose 50%) 25 gm SLOW IVP PRN PRN PRN Reason: Hypoglycemia Docusate Sodium (Colace) 100 mg PO BID [facility] Last Admin: 03/13/18 08:48 Dose: Not Given Enoxaparin Sodium (Lovenox) 40 mg SC 0900 [facility] Famotidine (Pepcid) 20 mg PO DAILY [facility] Last Admin: 03/13/18 08:48 Dose: 20 mg Glucagon (Glucagon) 1 mg IM PRN PRN PRN Reason: Hypoglycemia Guaifenesin/Dextromethorphan (Robitussin Dm) 15 ml PO Q4H PRN PRN Reason: Cough Sodium Chloride (Normal Saline 0.9%) 1,000 mls @ 150 mls/hr IV .Q6H40M [facility] Last Admin: 03/13/18 10:34 Dose: Not Given Norepinephrine Bitartrate (Levophed) 250 mls @ 0 mls/hr IVPB INF PRN; Protocol ; Titrate PRN Reason: Blood Pressure Dextrose/Water (D5w) 1,000 mls @ 0 mls/hr IV .Q0M PRN; As Directed PRN Reason: Hypoglycemia Vancomycin HCl 1 gm/ Device 200 mls @ 200 mls/hr IVPB 1800 [facility] Last Admin: 03/12/18 17:36 Dose: 200 mls Piperacillin Sod/Tazobactam (Sod 2.25 gm/ Sodium Chloride) 100 mls @ 200 mls/ hr IVPB Q8HR [facility] Last Admin: 03/13/18 14:15 Dose: 100 mls Insulin Human Lispro (Humalog) 0 units SC .MODERATE SLIDING SC PRN PRN Reason: Moderate Correctional Scale Last Admin: 03/13/18 09:35 Dose: 4 unit Insulin Human Lispro (Humalog) 0 units SC .BEDTIME SLIDING SC PRN PRN Reason: Bedtime Correctional Scale Last Admin: 03/12/18 03:55 Dose: 2 unit Morphine Sulfate (Morphine Sulfate) 4 mg SLOW IVP Q2H PRN PRN Reason: .BREAKTHROUGH Pain Last Admin: 03/12/18 21:18 Dose: 4 mg Polyethylene Glycol (Miralax) 17 gm PO DAILY [facility] Last Admin: 03/13/18 08:48 Dose: Not Given Sodium Chloride (Flush - Normal Saline) 10 ml IVF Q12HR [facility] Last Admin: 03/13/18 08:48 Dose: 10 ml Sodium Chloride (Flush - Normal Saline) 10 ml IVF PRN PRN PRN Reason: Saline Flush Tramadol HCl (Ultram) 50 mg PO Q12H PRN PRN Reason: Pain 1ST LINE Tramadol HCl (Ultram) 100 mg PO Q12H PRN PRN Reason: Pain 2ND LINE
--- NOTE | 2018-03-13 17:19 | PRG ---
DATE OF SERVICE: 03/13/2018 SUBJECTIVE: Patient was seen and examined at bedside and overnight events noted. Patient denies any shortness of breath or chest pain or palpitation. No history of nausea or vomiting or diarrhea or f ever or chills or cramps. OBJECTIVE: GENERAL: This is a well-built male in no apparent distress. VITAL SIGNS: Temperature 98.0, pulse 64, respiratory rate 18, blood pressure 121/65. HEENT: Atraumatic, normocephalic. Oral mucosa is moist. NECK: Supple. CARDIOVASCULAR: S1, S2 heard. Rate and rhythm regular. RESPIRATORY: Clear to auscultation. GASTROINTESTINAL: Abdomen is soft. MUSCULOSKELETAL: No tenderness. No edema. DERMATOLOGIC: No skin rash. NEUROLOGIC: Alert and awake and oriented x3. No focal neurologic deficits. Moving all the extremiti es. PSYCHIATRIC: Mood and affect normal. LABORATORY DATA: Potassium is 3.8, BUN 46, creatinine is 1.9. ASSESSMENT AND PLAN: 1. Acute kidney injury on chronic kidney disease stage 3. Renal function with improvement. Continu e supportive care and avoid nephrotoxins. 2. Anemia. 3. Leukocytosis. 4. Septic shock. 5. Metabolic acidosis. 6. Pyuria. Follow up cultures. 7. Renal function is getting better. Avoid nephrotoxins. We will follow.
--- NOTE | 2018-03-13 17:50 | PRG ---
DATE OF SERVICE: 03/13/2018 SUBJECTIVE: Filiberto Lugo today is doing well. He has been transferred from the ICU [facility]. He is doing well, does not have any pain, probably due to his central cord syndrome, mild paraplegia from the past. The patient is tolerating her diet. His bowel function is good. OBJECTIVE: VITAL SIGNS: 98 degrees, 61, 121/65. The patient remains afebrile. Urine output, Hewitt is good, 17 70 mL for 24 hours and 230 mL so far today. His Hewitt remains in place as he has had some difficulty voiding since being hospitalized. LUNGS: Clear to auscultation. CARDIAC: Regular rate and rhythm without murmur. ABDOMEN: Soft, nontender. Wound VAC in place. LABORATORY DATA: This morning, his white count is down from 23,000 yesterday to 13,000, hemoglobin 9 .1. His BUN is 46, creatinine 1.9, GFR 36, which has markedly improved. ASSESSMENT AND PLAN: Necrotizing fasciitis. Cultures revealed Staphylococcus, Pseudomonas. Dr. Gresham has been consulted. Dr. Zambrano has seen h im. The patient's renal function is improved. His acute kidney injury has improved and he approache s his chronic kidney disease to baseline. Overall, he is doing well and will be transferred to the [facility]. We will view his wound tomorrow. Expect he will be able to be discharged home with wound VAC with home health nursing or outpatient care. He could come to [facility] twice a week for w ound VAC changes. If home health is taking care of him, I will see him in the office in 2-3 weeks. If he comes to [facility] outpatient wound care, he will have a look in his wound [facility] 2 [facility]. I will also look his wound tomorrow and hopefully will be rehan chalino for discharge later in the week on oral antibiotics.
[2018-03-13 17:52] LABS: Vancomycin, Trough 11.5 ug/mL
[2018-03-13] MEDS ORDERED: Vancomycin HCl 1.5 GM in Sodium Chloride 0.9% 250 ML 300 ML IVPB SCH (18:00)
[2018-03-13] MEDS: Vancomycin HCl 1 GM in Premix Bag 1 BAG IVPB SCH (18:01)
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
[2018-03-14] MEDS: Sodium Chloride 0.9% 1,000 ML IV SCH ×2 (03:59→09:10)
[2018-03-14 04:16] LABS: #Eosinphils 0.2 thou/uL (0.0-0.7); #Lymphocytes 2.1 thou/uL (1.20-3.40); #Monocytes 0.9 thou/uL (0.11-0.59); #Neutrophils 6.5 thou/uL (1.40-6.50); %Basophils 0.5 % (0.0-1.0); %Eosinophils 2.2 % (0.0-10.0); %Lymphocytes 21.7 % (21.0-51.0); %Monocytes 8.7 % (0.0-10.0); %Neutrophils 66.8 % (42.0-75.0); Mean Corpuscular HGB CONC 34.3 g/dL (32.0-36.0); Mean Corpuscular Volume 96.1 fl (80.0-94.0); Mean Platelet Volume 8.5 fL (7.4-10.4); Platelet Count 221 thou/uL (130-400); RBC Distribution Width 12.1 % (11.5-14.5); Red Blood Cell (RBC) Count 2.74 mill/uL (4.70-6.10); White Blood Cell (WBC) Count 9.8 thou/uL (4.8-10.8)
[2018-03-14 04:34] LABS: Anion Gap 9 mmol/L (10-20); BUN (Urea Nitrogen) 32 mg/dL (8.4-25.7); Calc. Creatinine Clearance 74 mL/min (70-130); Calcium 8.5 mg/dL (7.8-10.44); Carbon Dioxide 23 mmol/L (23-31); Chloride 111 mmol/L (98-107); Estimated GFR-MDRD 49; Glucose 131 mg/dL (80-115); Potassium 3.4 mmol/L (3.5-5.1); Sodium 140 mmol/L (136-145)
[2018-03-14] MEDS: Piperacillin/Tazobactam 2.25 GM in Sodium Chloride 0.9% 100 ML IVPB SCH ×2 (06:09→14:28)
[2018-03-14] MEDS: Famotidine 20 MG TAB PO SCH (08:51)
[2018-03-14] MEDS: Docusate 100 MG CAP PO SCH ×2 (08:51→20:45)
[2018-03-14] MEDS: Polyethylene Glycol 3350 17 GM Packet PO SCH (08:52)
[2018-03-14] MEDS: Enoxaparin Sodium 40 MG/0.4 ML SYRINGE SC SCH (08:52)
[2018-03-14] MEDS: HumaLOG 300 UNITS/3 ML VIAL SC PRN (11:49)
--- NOTE | 2018-03-14 12:44 | PDOC.PN ---
- Subjective Encounter Start Date: 03/14/18 Encounter Start Time: 12:42 Subjective: feels much better.just showered,wound vac interrupted this am -: sister in room and care updated - Objective Resuscitation Status: Resuscitation Status FULL:Full Resuscitation MAR Reviewed: Yes Vital Signs & Weight: Vital Signs (12 hours) Temp Pulse Resp BP Pulse Ox 03/14/18 12:33 60 12 03/14/18 11:49 98.8 F 61 18 174/71 H 97 03/14/18 08:45 98.5 F 74 16 97 03/14/18 07:39 98.5 F 74 16 155/70 H 97 03/14/18 07:03 70 12 03/14/18 04:53 98.4 F 82 18 155/70 H 97 03/14/18 01:04 98.2 F 67 18 137/65 96 Weight Admit Weight 206 lb 9.17 oz Weight 216 lb 4.375 oz Most Recent Monitor Data Heart Rate from ECG 71 NIBP 123/48 NIBP BP-Mean 87 Respiration from ECG 25 SpO2 98 I&O: 03/13/18 03/14/18 03/15/18 06:59 06:59 06:59 Intake Total 3193 6010 Output Total 1770 2680 850 Balance 1423 3330 -850 Result Diagrams: 03/14/18 03:53 03/14/18 03:53 Additional Labs: Accuchecks 03/14/18 03/14/18 03/13/18 11:34 06:02 20:23 POC Glucose 191 H 147 H 177 H 03/13/18 16:11 POC Glucose 177 H Microbiology 03/12/18 12:30 Groin - Abscess Bacterial Culture - Preliminary 03/12/18 12:30 Groin - Abscess Methicillin resistant S.aureus 03/11/18 20:35 Toe - Decubitis Bacterial Culture - Preliminary Staphylococcus aureus Pseudomonas aeruginosa 03/11/18 17:10 Venous blood - Right Hand Blood Culture - Preliminary NO GROWTH AT 48 HOURS 03/11/18 16:50 Venous blood - Right Arm Blood Culture - Preliminary NO GROWTH AT 48 HOURS 03/11/18 01:35 Urine phelps catheter Urine Culture - Preliminary NO GROWTH AT 24 HOURS LABS REVIEWED Phys Exam - Physical Examination Constitutional: NAD HEENT: PERRLA, moist MMs, sclera anicteric, oral pharynx no lesions Neck: no nodes, no JVD, supple, full ROM Respiratory: no wheezing, no rales, no rhonchi, clear to auscultation bilateral Cardiovascular: RRR, no significant murmur, no rub Gastrointestinal: soft, non-tender, no distention, positive bowel sounds Musculoskeletal: no edema, pulses present extensive clean,open wound left innner upper thigh Neurological: non-focal, normal sensation, moves all 4 limbs Psychiatric: normal affect, A&O x 3 Skin: no rash Dx/Plan (1) Severe sepsis with acute organ dysfunction Code(s): A41.9 - SEPSIS, UNSPECIFIED ORGANISM; R65.20 - SEVERE SEPSIS WITHOUT SEPTIC SHOCK Status: Acute Comment: Due to groin abscess.S/P I&D .MRSA +ve (2) ИВАН (acute kidney injury) Code(s): N17.9 - ACUTE KIDNEY FAILURE, UNSPECIFIED Status: Acute Comment: improving (3) Inguinal abscess Code(s): L02.214 - CUTANEOUS ABSCESS OF GROIN Status: Acute (4) Rhabdomyolysis Code(s): M62.82 - RHABDOMYOLYSIS Status: Acute Comment: improving (5) Metabolic acidosis Code(s): E87.2 - ACIDOSIS Status: Acute (6) DM2 (diabetes mellitus, type 2) Status: Chronic (7) Septic shock Code(s): A41.9 - SEPSIS, UNSPECIFIED ORGANISM; R65.21 - SEVERE SEPSIS WITH SEPTIC SHOCK Status: Resolved Comment: off of pressors - Plan plan discussed w/ family, continue antibiotics, PT/OT, respiratory therapy, incentive spirometry, out of bed/ambulate, DVT proph w/SCDs clinically better.cont vancomycin for now -: final choice and duration of Abx per ID recs.may need PICC line -: cont wound care and wound vac. -: hemodynamically stable.renal function improving -: rehab eval.am labs * . Review of Systems - Review of Systems Constitutional: weakness, malaise. negative: fever, chills, sweats, other ENT: negative: Ear Pain, Ear Discharge, Nose Pain, Nose Discharge, Nose Congestion, Mouth Pain, Mouth Swelling, Throat Pain, Throat Swelling, Other Respiratory: negative: Cough, Dry, Shortness of Breath, Hemoptysis, SOB with Excertion, Pleuritic Pain, Sputum, Wheezing Cardiovascular: negative: chest pain, palpitations, orthopnea, paroxysmal nocturnal dyspnea, edema, light headedness, other Gastrointestinal: negative: Nausea, Vomiting, Abdominal Pain, Diarrhea, Constipation, Melena, Hematochezia, Other Genitourinary: negative: Dysuria, Frequency, Incontinence, Hematuria, Retention , Other Musculoskeletal: negative: Neck Pain, Shoulder Pain, Arm Pain, Back Pain, Hand Pain, Leg Pain, Foot Pain, Other Skin: negative: Rash, Lesions, Jossue, Bruising, Other Neurological: negative: Weakness, Numbness, Incoordination, Change in Speech, Confusion, Seizures, Other - Medications/Allergies Allergies/Adverse Reactions: Allergies Allergy/AdvReac Type Severity Reaction Status Date / Time No Known Allergies Allergy Verified 09/15/13 20:48 Medications: Current Medications Acetaminophen (Tylenol) 650 mg PO Q4H PRN PRN Reason: Headache/Fever or Pain Acetaminophen (Tylenol) 1,000 mg PO Q6H PRN PRN Reason: Moderate to Severe Pain (6-10) Albuterol/Ipratropium (Duoneb) 3 ml NEB [id number] [facility] Last Admin: 03/14/18 12:33 Dose: 3 ml Aspirin (Aspirin Chewable) 81 mg PO DAILY [facility] Last Admin: 03/14/18 08:51 Dose: 81 mg Dextrose/Water (Dextrose 50%) 25 gm SLOW IVP PRN PRN PRN Reason: Hypoglycemia Docusate Sodium (Colace) 100 mg PO BID [facility] Last Admin: 03/14/18 08:51 Dose: 100 mg Enoxaparin Sodium (Lovenox) 40 mg SC 0900 [facility] Last Admin: 03/14/18 08:52 Dose: 40 mg Famotidine (Pepcid) 20 mg PO DAILY [facility] Last Admin: 03/14/18 08:51 Dose: 20 mg Glucagon (Glucagon) 1 mg IM PRN PRN PRN Reason: Hypoglycemia Guaifenesin/Dextromethorphan (Robitussin Dm) 15 ml PO Q4H PRN PRN Reason: Cough Dextrose/Water (D5w) 1,000 mls @ 0 mls/hr IV .Q0M PRN; As Directed PRN Reason: Hypoglycemia Piperacillin Sod/Tazobactam (Sod 2.25 gm/ Sodium Chloride) 100 mls @ 200 mls/ hr IVPB Q8HR [facility] Last Admin: 03/14/18 06:09 Dose: 100 mls Vancomycin HCl 1.5 gm/ Sodium (Chloride) 300 mls @ 200 mls/hr IVPB 1800 [facility] Last Admin: 03/13/18 19:27 Dose: Not Given Insulin Human Lispro (Humalog) 0 units SC .MODERATE SLIDING SC PRN PRN Reason: Moderate Correctional Scale Last Admin: 03/14/18 11:49 Dose: 2 unit Insulin Human Lispro (Humalog) 0 units SC .BEDTIME SLIDING SC PRN PRN Reason: Bedtime Correctional Scale Last Admin: 03/12/18 03:55 Dose: 2 unit Polyethylene Glycol (Miralax) 17 gm PO DAILY [facility] Last Admin: 03/14/18 08:52 Dose: 17 gm Sodium Chloride (Flush - Normal Saline) 10 ml IVF Q12HR [facility] Last Admin: 03/14/18 08:52 Dose: Not Given Sodium Chloride (Flush - Normal Saline) 10 ml IVF PRN PRN PRN Reason: Saline Flush Tramadol HCl (Ultram) 50 mg PO Q12H PRN PRN Reason: Pain 1ST LINE Last Admin: 03/14/18 04:00 Dose: 50 mg Tramadol HCl (Ultram) 100 mg PO Q12H PRN PRN Reason: Pain 2ND LINE
[2018-03-14 13:54] VITALS: BMI 31.0
--- NOTE | 2018-03-14 14:00 | PRG ---
DATE OF SERVICE: 03/14/2018 SUBJECTIVE: Patient was seen and examined at bedside and overnight events noted. Patient denies any shortness of breath or chest pain or palpitation. No history of nausea or vomiting or diarrhea or f ever or chills or cramps. OBJECTIVE: GENERAL: This is a well-built male in no apparent distress. VITAL SIGNS: Temperature 98, pulse 67, respiratory rate 18, blood pressure 155/70. HEENT: Atraumatic, normocephalic. Oral mucosa is moist. NECK: Supple. CARDIOVASCULAR: S1, S2 heard. Rate and rhythm regular. RESPIRATORY: Clear to auscultation. GASTROINTESTINAL: Abdomen is soft. MUSCULOSKELETAL: No tenderness. No edema. DERMATOLOGIC: No skin rash. NEUROLOGIC: Alert and awake and oriented x3. No focal neurologic deficits. Moving all the extremiti es. PSYCHIATRIC: Mood and affect normal. LABORATORY DATA: Potassium is 3.4, BUN 32, creatinine is 1.45. ASSESSMENT AND PLAN: 1. Acute kidney injury on chronic kidney disease. Renal function is much better. 2. Anemia. 3. Septic shock. 4. Metabolic acidosis, better. 5. Overall, renal function is better. Continue hydration. 6. Hypokalemia, replace and monitor potassium.
--- NOTE | 2018-03-14 17:31 | PRG ---
DATE OF SERVICE: 03/14/2018 SUBJECTIVE: Mild to moderate pain in the operative site. Hewitt catheter has been removed and is voi ding without difficulty. No respiratory symptoms or abdominal pain. OBJECTIVE: VITAL SIGNS: Normal except for elevation of systolic blood pressure. GENERAL: Awake, alert, oriented. LUNGS: Clear. CARDIOVASCULAR: S1, S2, regular rate. Right IJ central line in place. The microbiology revealed MRSA and Pseudomonas aeruginosa. Pseudomonas aeruginosa susceptible to gualberto nolones. MRSA susceptible to clindamycin, doxycycline, and linezolid. White cell count is down to 9 .8, hemoglobin 9.0, and platelets 221. Creatinine 1.45. At this point, we will switch him to oral clindamycin and Cipro. Discontinue IV therapy and disconti nue central line recommended.
[2018-03-14] MEDS: Clindamycin 150 MG CAP PO SCH (17:59)
[2018-03-14] MEDS: Cipro 250 MG TAB PO SCH (20:45)
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
--- NOTE | 2018-03-14 22:58 | PRG ---
DATE OF SERVICE: 03/14/2018 Filiberto Lugo is doing well today. I took off his wound VAC already this morning. His wound look ed very good. 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 There is no evidence of infec tion. There is no cellulitis. Wound was very good. He is starting to granulate. The necrotizing p rocess is well controlled surgically. At this point, I believe that the patient be transferred to re hab any time on oral antibiotics. We would continue wound VAC. He should follow up in my office in 2-[address] Thomas is covering over the next few days and we will see as needed. Please call if necessary.
[2018-03-15] MEDS: Clindamycin 150 MG CAP PO SCH ×3 (00:43→12:11)
[2018-03-15] MEDS: Cipro 250 MG TAB PO SCH (06:15)
[2018-03-15 06:52] LABS: #Basophils 0.1 thou/uL (0.0-0.2); #Eosinphils 0.2 thou/uL (0.0-0.7); #Lymphocytes 2.2 thou/uL (1.20-3.40); #Monocytes 0.8 thou/uL (0.11-0.59); #Neutrophils 6.4 thou/uL (1.40-6.50); %Eosinophils 2.4 % (0.0-10.0); %Lymphocytes 22.4 % (21.0-51.0); %Monocytes 8.4 % (0.0-10.0); %Neutrophils 65.8 % (42.0-75.0); Hemoglobin 9.4 g/dL (14.0-18.0); Mean Corpuscular HGB CONC 34.4 g/dL (32.0-36.0); Mean Corpuscular Hemoglobin 32.6 pg (27.0-31.0); Mean Corpuscular Volume 94.6 fl (80.0-94.0); Mean Platelet Volume 7.7 fL (7.4-10.4); Platelet Count 246 thou/uL (130-400); RBC Distribution Width 12.1 % (11.5-14.5); White Blood Cell (WBC) Count 9.7 thou/uL (4.8-10.8)
[2018-03-15 07:10] LABS: Anion Gap 10 mmol/L (10-20); BUN (Urea Nitrogen) 19 mg/dL (8.4-25.7); Calc. Creatinine Clearance 92 mL/min (70-130); Calcium 8.9 mg/dL (7.8-10.44); Carbon Dioxide 24 mmol/L (23-31); Chloride 109 mmol/L (98-107); Estimated GFR-MDRD 63; Glucose 120 mg/dL (80-115); Potassium 3.4 mmol/L (3.5-5.1); Sodium 140 mmol/L (136-145)
[2018-03-15] MEDS ORDERED: Amlodipine 10 MG TAB PO SCH (09:00)
[2018-03-15] MEDS ORDERED: Atorvastatin Calcium 20 MG TAB PO SCH (09:00)
[2018-03-15] MEDS: Baclofen 10 MG TAB PO SCH ×2 (09:30→12:12)
[2018-03-15] MEDS: Enoxaparin Sodium 40 MG/0.4 ML SYRINGE SC SCH (09:30)
[2018-03-15] MEDS: Famotidine 20 MG TAB PO SCH (09:30)
[2018-03-15] MEDS: Docusate 100 MG CAP PO SCH (09:31)
[2018-03-15] MEDS: Polyethylene Glycol 3350 17 GM Packet PO SCH (09:31)
[2018-03-15 11:22] VITALS: TEMP 98.5
[2018-03-15] MEDS ORDERED: cloNIDine 0.1 MG TAB PO PRN (11:39)
[2018-03-15] MEDS: HumaLOG 300 UNITS/3 ML VIAL SC PRN (12:11)
[2018-03-15 13:14] VITALS: BP 152/66
--- NOTE | 2018-03-15 19:38 | PRG ---
DATE OF SERVICE: 03/15/2018 SUBJECTIVE: Patient was seen and examined at bedside and overnight events noted. Patient denies any shortness of breath or chest pain or palpitation. No history of nausea or vomiting or diarrhea or fever or chills or cramps. OBJECTIVE: GENERAL: This is a well-built male, in no apparent distress. VITAL SIGNS: Temperature 98.5, pulse 84, respiratory rate 14, blood pressure 184/62. HEENT: Atraumatic, normocephalic. Oral mucosa is moist NECK: Supple CARDIOVASCULAR: S1S2 heard, Rate and rhythm regular. RESPIRATORY: Clear to auscultation. GASTROINTESTINAL: Abdomen is soft. MUSCULOSKELETAL: No tenderness. No edema. DERMATOLOGIC: No skin rash. NEUROLOGIC: Alert and awake and oriented x3. No focal neurologic deficits. Moving all the extremit ies. PSYCHIATRIC: Mood and affect normal. LABORATORY DATA: Potassium is 3.4, BUN 19, creatinine is 1.1. ASSESSMENT AND PLAN: 1. Acute kidney injury on chronic kidney stage 3. Renal function is stable. Avoid nephrotoxins. 2. Anemia. 3. Septic shock, better, 4. Metabolic acidosis. 5. Hypokalemia, replace and monitor. Overall stable renal function.
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
== END 2018-03-15 14:40 | DRG 853 ==
LOC: SCSER 15:15 → ERHOLD 18:15 → CCU 20:10 → SURG A 03-13 10:13
PROVIDERS: ADMIT Emergency Medicine; ATTEND Emergency Medicine
PROC: 0KBR0ZZ Excision of Left Upper Leg Muscle, Open Approach (ICD-10-PCS; principal; 2018-03-12)
PROC: 0J9C0ZZ Drainage of Pelvic Region Subcutaneous Tissue and Fascia, Open Approach (ICD-10-PCS; 2018-03-12)
PROC: 0J9B0ZZ Drainage of Perineum Subcutaneous Tissue and Fascia, Open Approach (ICD-10-PCS; 2018-03-12)
PROC: 0JBM0ZZ Excision of Left Upper Leg Subcutaneous Tissue and Fascia, Open Approach (ICD-10-PCS; 2018-03-12)
DX: A41.9 Sepsis, unspecified organism (principal); R65.21 Severe sepsis with septic shock; M72.6 Necrotizing fasciitis; L02.214 Cutaneous abscess of groin; N17.9 Acute kidney failure, unspecified; M62.82 Rhabdomyolysis; E87.2 Acidosis; N39.0 Urinary tract infection, site not specified; L03.315 Cellulitis of perineum; G82.20 Paraplegia, unspecified; B95.62 Methicillin resistant Staphylococcus aureus infection as the cause of diseases classified elsewhere; L89.152 Pressure ulcer of sacral region, stage 2; L89.322 Pressure ulcer of left buttock, stage 2; L89.899 Pressure ulcer of other site, unspecified stage; F17.210 Nicotine dependence, cigarettes, uncomplicated; E78.5 Hyperlipidemia, unspecified; I12.9 Hypertensive chronic kidney disease with stage 1 through stage 4 chronic kidney disease, or unspecified chronic kidney disease; N18.3 Chronic kidney disease, stage 3 (moderate); E11.22 Type 2 diabetes mellitus with diabetic chronic kidney disease; D63.1 Anemia in chronic kidney disease; E87.6 Hypokalemia; E11.51 Type 2 diabetes mellitus with diabetic peripheral angiopathy without gangrene
CPT/HCPCS: 36415; 36416; 36556; 51701; 71045; 71046; 74018; 76999; 80048; 80053; 80076; 80202; 81001; 81003; 81015; 82010; 82533; 82550; 83605; 83690; 85025; 86140; 87040; 87070; 87077; 87086; 87186; 87205; 93005; 93306; 94640; 96361; 96365; 96367; 96368; 96375; A4216; G8978-GP-CM; G8979-GP-CK; G8987-GO-CL; G8988-GO-CJ; J0692; J1200; J1650; J2250; J2270; J2405; J2543; J2704; J2920; J3010; J3370; J7050; J7620

== ENCOUNTER 2019-01-15 13:25 | Outpatient (CLI) | payer MEDICARE, MEDICAID ==
--- NOTE | 2019-01-15 16:12 | HP ---
HISTORY OF PRESENT ILLNESS: Mr. Filiberto Lugo is a very pleasant 63-year-old accompanied by his sister, who [facility] for evaluation of a lesion of the dorsum of the right foot. The patient states that a sore over the dorsum of the right foot had been present for over one year. He states that the sore was associated intermittently with edema of the right lower extremity. The patient states that he was seen by Dr. Castro for the wound over the dorsum of the right foot. He states that at this time the sore looked "angry." He states that CT scan of the right foot was obtained and that he was placed on a course of p.o. antibiotics. At this time, the patient was referred to the [facility] for further evaluation and treatment. PAST MEDICAL HISTORY: 1. Diabetes mellitus. 2. Hypertension. 3. Peripheral vascular disease. 4. Seasonal allergies. 5. Gastroesophageal reflux disease. PAST SURGICAL HISTORY: 1. Bilateral arthroscopic knee surgery. 2. C3 through C7 laminectomy. 3. Surgery for necrotizing fasciitis of the upper left medial thigh extending to the groin crease, perineum, and para scrotal region. MEDICATIONS: 1. Baclofen. 2. Metformin. 3. Lasix. 4. Antihypertensive. 5. Pantoprazole. ALLERGIES: NO KNOWN DIAGNOSED ALLERGIES. SOCIAL HISTORY: Social history significant for tobacco use on an intermittent basis of 1 pack of cigarettes per day for 10 years. The patient states he stopped smoking in March of 2018. Social history is also significant for the heavy consumption of alcohol on the weekends in the past. The patient states he stopped drinking 5 to 6 years ago. FAMILY HISTORY: Significant for diabetes mellitus. The patient states that his mother and father were both diagnosed with diabetes mellitus. The patient states that he has multiple relatives on the maternal side of his family, who were diagnosed with diabetes mellitus. Family history is also significant for coronary artery disease. The patient states that his mother and father were both diagnosed with coronary artery disease. PHYSICAL EXAMINATION: VITAL SIGNS: Temperature 98.6, pulse 57, blood pressure 184/77. Accu-Chek 159. GENERAL: A 63-year-old gentleman, sitting on chair in examination room, in no acute distress. HEENT: Normocephalic and atraumatic. NECK: No nuchal rigidity. CHEST: Clear to auscultation. CV: Regular rate and rhythm. ABDOMEN: Soft. EXTREMITIES: The wound over the dorsum of the right foot has healed completely. No erythema of the dorsum of the right foot is present. A dorsalis pedis pulse is palpable on the right and on the left. A posterior tibial pulse is not palpable on the right or on the left. Edema of the right and left lower extremities is present on exam today. ASSESSMENT AND PLAN: 1. Wound over dorsum of right foot as stated above, the wound over the dorsum of the right foot has healed completely. The patient has been reassured that there is no open wound present. 2. Diabetes mellitus. The patient's Accu-Chek in clinic today is 159. 3. Hypertension. 4. Peripheral vascular disease. The patient states that he has an appointment with Dr. Medrano, where ankle-brachial indices will be obtained. 5. Seasonal allergies. 6. Gastroesophageal reflux disease. Job ID: [id number]
[2019-01-15] MEDS ORDERED: Sodium Chloride 0.9% 15 ML NEB ONE (17:17)
== END 2019-01-15 13:26 | disposition home or self-care (01) ==
LOC: WCC 13:25
PROVIDERS: ATTEND Family Medicine
DX: Z87.2 Personal history of diseases of the skin and subcutaneous tissue (principal); E11.51 Type 2 diabetes mellitus with diabetic peripheral angiopathy without gangrene; I10 Essential (primary) hypertension; K21.9 Gastro-esophageal reflux disease without esophagitis
CPT/HCPCS: 97139; 97602; G0463; 99203; A4218

== ENCOUNTER 2021-12-25 19:30 | Outpatient (CLI) | payer MEDICARE, OTHER | END 2021-12-25 19:31 | disposition home or self-care (01) | LOC: SLEEPLAB 19:30 | PROVIDERS: ATTEND Family Medicine | DX: G47.33 Obstructive sleep apnea (adult) (pediatric) (principal); K21.9 Gastro-esophageal reflux disease without esophagitis; E66.9 Obesity, unspecified; I10 Essential (primary) hypertension; Z68.30 Body mass index [BMI] 30.0-30.9, adult | CPT/HCPCS: 95810 ==

== ENCOUNTER 2022-12-24 19:25 | Inpatient (IN) | payer OTHER, MEDICAID ==
[2022-12-24] MEDS ORDERED: Acetaminophen 650 MG Suppository PR PRN (21:07)
[2022-12-24] MEDS ORDERED: Dextrose 50% Abboject 50 ML SYRINGE SLOW IVP PRN (21:07)
[2022-12-24] MEDS ORDERED: HumaLOG 300 UNITS/3 ML VIAL SC PRN ×2 (21:07)
[2022-12-24] MEDS ORDERED: Dextrose 5% in Water 1,000 ML IV PRN (21:07)
[2022-12-24] MEDS ORDERED: Acetaminophen 325 MG TAB PO PRN (21:07)
[2022-12-24] MEDS ORDERED: Ondansetron PF 4 MG/2 ML Vial IVP PRN (21:07)
[2022-12-24] MEDS ORDERED: Ondansetron ODT 4 MG TAB PO PRN (21:07)
[2022-12-24] MEDS ORDERED: Morphine 4 MG/ML VIAL SLOW IVP PRN (21:33)
[2022-12-24] MEDS ORDERED: VANCOMYCIN 1.25 GM/250 ML BAG IVPB SCH (21:45)
[2022-12-24 22:19] LABS: #Eosinphils 0.2 thou/uL (0.0-0.7); #Lymphocytes 0.6 thou/uL (1.20-3.40); #Monocytes 0.6 thou/uL (0.11-0.59); #Neutrophils 10.4 thou/uL (1.40-6.50); %Basophils 0.4 % (0.0-1.0); %Lymphocytes 4.6 % (21.0-51.0); %Monocytes 4.7 % (0.0-10.0); %Neutrophils 88.2 % (42.0-75.0); Hemoglobin 10.7 g/dL (14.0-18.0); Mean Corpuscular HGB CONC 33.4 g/dL (32.0-36.0); Mean Corpuscular Hemoglobin 33.1 pg (27.0-31.0); Mean Corpuscular Volume 99.3 fl (78.0-98.0); Mean Platelet Volume 8.6 fL (7.4-10.4); Platelet Count 246 10x3/uL (130-400); RBC Distribution Width 14.2 % (11.5-14.5); Red Blood Cell (RBC) Count 3.22 mill/uL (4.70-6.10); White Blood Cell (WBC) Count 11.8 10x3/uL (4.8-10.8)
[2022-12-24 22:45] LABS: Anion Gap 13 mmol/L (10-20); BUN (Urea Nitrogen) 42 mg/dL (8.4-25.7); Calc. Creatinine Clearance 0 mL/min (70-130); Calcium 8.4 mg/dL (7.8-10.44); Carbon Dioxide 18 mmol/L (23-31); Chloride 112 mmol/L (98-107); Estimated GFR 20; Glucose 150 mg/dL (80-115); Magnesium 1.8 mg/dL (1.6-2.6); Potassium 4.1 mmol/L (3.5-5.1); Sodium 139 mmol/L (136-145)
[2022-12-24] MEDS ORDERED: Furosemide 40 MG/4 ML VIAL SLOW IVP SCH (23:00)
[2022-12-24] MEDS ORDERED: Sodium Bicarb 50 MEQ/50 ML Abboject 8.4% SYRINGE IVP SCH (23:00)
[2022-12-24] MEDS ORDERED: Sodium Bicarb 50 MEQ/50 ML VIAL IVP SCH (23:45)
[2022-12-24 23:51] VITALS: BMI 31.8
[2022-12-24] MEDS ORDERED: Amlodipine 10 MG TAB PO SCH (23:59)
[2022-12-24] MEDS ORDERED: hydrALAZINE 25 MG TAB PO SCH (23:59)
[2022-12-24] MEDS ORDERED: Losartan 25 MG TAB PO SCH (23:59)
[2022-12-25] MEDS: Cefepime 1 GM in Sodium Chloride 0.9% 100 ML IVPB SCH (00:40)
[2022-12-25 04:25] LABS: #Eosinphils 0.3 thou/uL (0.0-0.7); #Monocytes 0.5 thou/uL (0.11-0.59); #Neutrophils 6.8 thou/uL (1.40-6.50); %Basophils 0.5 % (0.0-1.0); %Lymphocytes 11.8 % (21.0-51.0); %Monocytes 5.9 % (0.0-10.0); %Neutrophils 78.9 % (42.0-75.0); Hemoglobin 10.1 g/dL (14.0-18.0); Mean Corpuscular HGB CONC 33.3 g/dL (32.0-36.0); Mean Corpuscular Volume 98.9 fl (78.0-98.0); Mean Platelet Volume 8.8 fL (7.4-10.4); Platelet Count 229 10x3/uL (130-400); RBC Distribution Width 14.2 % (11.5-14.5); Red Blood Cell (RBC) Count 3.05 mill/uL (4.70-6.10); White Blood Cell (WBC) Count 8.6 10x3/uL (4.8-10.8)
[2022-12-25 04:51] LABS: Anion Gap 12 mmol/L (10-20); BUN (Urea Nitrogen) 41 mg/dL (8.4-25.7); Calc. Creatinine Clearance 31 mL/min (70-130); Calcium 8.4 mg/dL (7.8-10.44); Carbon Dioxide 21 mmol/L (23-31); Chloride 112 mmol/L (98-107); Estimated GFR 20; Glucose 120 mg/dL (80-115); Potassium 3.9 mmol/L (3.5-5.1); Sodium 141 mmol/L (136-145)
[2022-12-25] MEDS: cloNIDine 0.1 MG TAB PO PRN ×3 (07:48→20:31)
[2022-12-25] MEDS ORDERED: Cefepime 2 GM in Sodium Chloride 0.9% 100 ML IVPB SCH (09:00)
[2022-12-25] MEDS ORDERED: Vancomycin 1 GM in Premix Bag 1 BAG IVPB SCH (09:00)
[2022-12-25] MEDS ORDERED: hydrALAZINE 25 MG TAB PO SCH (09:00)
[2022-12-25] MEDS ORDERED: cloNIDine 0.1mg/24 Hour PATCH TD SCH (09:00)
[2022-12-25] MEDS: Furosemide 40 MG/4 ML VIAL SLOW IVP SCH (09:32)
[2022-12-25] MEDS: Aspirin Chewable 81 MG TAB PO SCH (09:32)
[2022-12-25] MEDS: Sertraline 100 MG TAB PO SCH (09:32)
[2022-12-25] MEDS: hydrALAZINE 25 MG TAB PO SCH ×3 (09:42→20:31)
[2022-12-25] MEDS ORDERED: Vancomycin Dose by Levels Sliding Scale (Wt > 99) FS SCH (12:15)
[2022-12-25] MEDS ORDERED: cloNIDine 0.2mg/24 Hour PATCH TD SCH (18:00)
[2022-12-25] MEDS: Atorvastatin Calcium 20 MG TAB PO SCH (20:31)
[2022-12-25] MEDS ORDERED: Amlodipine 10 MG TAB PO SCH ×2 (21:00)
[2022-12-25] MEDS ORDERED: Losartan 25 MG TAB PO SCH ×2 (21:00)
[2022-12-26] MEDS: Cefepime 1 GM in Sodium Chloride 0.9% 100 ML IVPB SCH (00:47)
[2022-12-26] MEDS: hydrALAZINE 25 MG TAB PO SCH ×3 (08:40→19:53)
[2022-12-26] MEDS: Aspirin Chewable 81 MG TAB PO SCH (08:40)
[2022-12-26] MEDS: Furosemide 40 MG/4 ML VIAL SLOW IVP SCH (08:41)
[2022-12-26] MEDS: cloNIDine 0.1 MG TAB PO PRN ×3 (08:41→19:49)
[2022-12-26] MEDS: Sertraline 100 MG TAB PO SCH (08:41)
[2022-12-26 10:58] LABS: Anion Gap 11 mmol/L (10-20); BUN (Urea Nitrogen) 37 mg/dL (8.4-25.7); Calc. Creatinine Clearance 33 mL/min (70-130); Calcium 8.1 mg/dL (7.8-10.44); Carbon Dioxide 22 mmol/L (23-31); Chloride 110 mmol/L (98-107); Estimated GFR 21; Glucose 135 mg/dL (80-115); Potassium 3.5 mmol/L (3.5-5.1); Sodium 139 mmol/L (136-145)
[2022-12-26 11:34] LABS: Vancomycin, Random 12.5 ug/mL (See Comment)
[2022-12-26] MEDS ORDERED: Vancomycin 1 GM in Premix Bag 1 BAG IVPB SCH (12:00)
[2022-12-26] MEDS: Sodium Chloride 0.9% 1,000 ML IV SCH (12:24)
[2022-12-26] MEDS ORDERED: Polyethylene Glycol 3350 17 GM Packet PO PRN (14:05)
[2022-12-26] MEDS ORDERED: Milk Of Magnesia 30 ML UDCUP PO PRN (14:05)
[2022-12-26 16:44] LABS: Bacteria/HPF None Seen HPF (None Seen); Bilirubin Negative (Negative); Blood, Urine Trace (Negative); Clarity Clear (Clear); Glucose, Urine (Dipstick) 50 mg/dL (Negative); Ketone, Urine Negative (Negative); Leukocyte Negative Leu/uL (Negative); Nitrite Negative (Negative); Protein, Urine (Dipstick) 100 mg/dL (Neg-Trace); RBC/HPF 0-3 HPF (0-3); Specific Gravity, Urine 1.009 (1.002-1.036); Squamous Epithelial None Seen HPF (0-3); Urobilinogen Normal mg/dL (Less than 2); WBC/HPF 0-3 HPF (0-3); pH, Urine 6.5 (5.0-9.0)
[2022-12-26] MEDS ORDERED: Cephalexin 250 MG CAP PO SCH (18:00)
[2022-12-26] MEDS: Doxycycline 100 MG CAP PO SCH (19:49)
[2022-12-26] MEDS: Cephalexin 250 MG CAP PO SCH (19:49)
[2022-12-26] MEDS: Atorvastatin Calcium 20 MG TAB PO SCH (19:50)
[2022-12-26] MEDS ORDERED: NIFEdipine XL 30 MG TAB PO SCH (21:00)
[2022-12-27] MEDS: cloNIDine 0.1 MG TAB PO PRN (02:19)
[2022-12-27 07:34] LABS: Phosphorus 4.3 mg/dL (2.3-4.7)
[2022-12-27 07:41] LABS: ALT (SGPT) 10 U/L (8-55); AST (SGOT) 15 U/L (5-34); Albumin 2.5 g/dL (3.4-4.8); Alkaline Phosphatase 115 U/L (40-110); Anion Gap 14 mmol/L (10-20); BUN (Urea Nitrogen) 36 mg/dL (8.4-25.7); Bilirubin, Total 0.5 mg/dL (0.2-1.2); Calc. Creatinine Clearance 33 mL/min (70-130); Calcium 8.1 mg/dL (7.8-10.44); Carbon Dioxide 21 mmol/L (23-31); Chloride 107 mmol/L (98-107); Estimated GFR 21; Glucose 105 mg/dL (80-115); Magnesium 1.7 mg/dL (1.6-2.6); Potassium 3.5 mmol/L (3.5-5.1); Protein, Total 5.5 g/dL (5.8-8.1); Sodium 138 mmol/L (136-145)
[2022-12-27] MEDS: Sertraline 100 MG TAB PO SCH (08:55)
[2022-12-27] MEDS: Doxycycline 100 MG CAP PO SCH ×2 (08:55→19:49)
[2022-12-27] MEDS: NIFEdipine XL 60 MG TAB PO SCH (08:56)
[2022-12-27] MEDS: Cephalexin 250 MG CAP PO SCH (08:56)
[2022-12-27] MEDS: Aspirin Chewable 81 MG TAB PO SCH (08:56)
[2022-12-27] MEDS: hydrALAZINE 25 MG TAB PO SCH ×3 (08:56→19:51)
[2022-12-27] MEDS ORDERED: cloNIDine 0.3mg/24 Hour PATCH TD SCH (09:00)
[2022-12-27] MEDS: Sodium Chloride 0.9% 1,000 ML IV SCH (09:05)
[2022-12-27 11:44] LABS: Creatinine, Urine 63.33 mg/dL (63-166)
[2022-12-27] MEDS ORDERED: Phenol 118 ML BOT PO PRN (14:48)
[2022-12-27] MEDS: NIFEdipine XL 30 MG TAB PO SCH (19:50)
[2022-12-27] MEDS: Atorvastatin Calcium 20 MG TAB PO SCH (19:50)
[2022-12-27] MEDS: Doxepin HCl 10 MG CAP PO PRN (21:16)
[2022-12-28] MEDS: Sodium Chloride 0.9% 1,000 ML IV SCH (05:43)
[2022-12-28 08:27] LABS: Anion Gap 14 mmol/L (10-20); BUN (Urea Nitrogen) 38 mg/dL (8.4-25.7); Calc. Creatinine Clearance 33 mL/min (70-130); Calcium 8.1 mg/dL (7.8-10.44); Carbon Dioxide 19 mmol/L (23-31); Chloride 107 mmol/L (98-107); Estimated GFR 21; Glucose 106 mg/dL (80-115); Potassium 3.4 mmol/L (3.5-5.1); Sodium 137 mmol/L (136-145)
[2022-12-28] MEDS: NIFEdipine XL 60 MG TAB PO SCH (08:48)
[2022-12-28] MEDS: hydrALAZINE 25 MG TAB PO SCH ×3 (08:49→20:15)
[2022-12-28] MEDS: Doxycycline 100 MG CAP PO SCH ×2 (08:49→20:28)
[2022-12-28] MEDS: Sertraline 100 MG TAB PO SCH (08:49)
[2022-12-28] MEDS: Aspirin Chewable 81 MG TAB PO SCH (08:49)
[2022-12-28] MEDS: cloNIDine 0.1 MG TAB PO PRN ×2 (08:51→20:18)
[2022-12-28] MEDS ORDERED: Melatonin 3 MG TAB PO PRN (14:37)
[2022-12-28] MEDS: NIFEdipine XL 30 MG TAB PO SCH (20:17)
[2022-12-28] MEDS: Atorvastatin Calcium 20 MG TAB PO SCH (20:17)
[2022-12-29] MEDS: cloNIDine 0.1 MG TAB PO PRN (00:52)
[2022-12-29] MEDS: Doxepin HCl 10 MG CAP PO PRN (00:53)
[2022-12-29 06:50] LABS: #Eosinphils 0.4 thou/uL (0.0-0.7); #Lymphocytes 1.6 thou/uL (1.20-3.40); #Monocytes 0.7 thou/uL (0.11-0.59); #Neutrophils 4.5 thou/uL (1.40-6.50); %Basophils 0.4 % (0.0-1.0); %Eosinophils 5.1 % (0.0-10.0); %Lymphocytes 21.9 % (21.0-51.0); %Monocytes 9.7 % (0.0-10.0); %Neutrophils 62.8 % (42.0-75.0); Hemoglobin 10.7 g/dL (14.0-18.0); Mean Corpuscular HGB CONC 33.7 g/dL (32.0-36.0); Mean Corpuscular Hemoglobin 33.1 pg (27.0-31.0); Mean Corpuscular Volume 98.3 fl (78.0-98.0); Mean Platelet Volume 8.1 fL (7.4-10.4); Platelet Count 247 10x3/uL (130-400); RBC Distribution Width 14.2 % (11.5-14.5); Red Blood Cell (RBC) Count 3.22 mill/uL (4.70-6.10); White Blood Cell (WBC) Count 7.2 10x3/uL (4.8-10.8)
[2022-12-29 07:09] LABS: Anion Gap 14 mmol/L (10-20); BUN (Urea Nitrogen) 39 mg/dL (8.4-25.7); Calc. Creatinine Clearance 34 mL/min (70-130); Calcium 8.5 mg/dL (7.8-10.44); Carbon Dioxide 19 mmol/L (23-31); Chloride 109 mmol/L (98-107); Estimated GFR 22; Glucose 114 mg/dL (80-115); Potassium 3.8 mmol/L (3.5-5.1); Sodium 138 mmol/L (136-145)
[2022-12-29] MEDS: Doxycycline 100 MG CAP PO SCH (08:55)
[2022-12-29] MEDS: hydrALAZINE 25 MG TAB PO SCH (08:55)
[2022-12-29] MEDS: NIFEdipine XL 60 MG TAB PO SCH (08:56)
[2022-12-29] MEDS: Aspirin Chewable 81 MG TAB PO SCH (08:56)
[2022-12-29] MEDS: Sertraline 100 MG TAB PO SCH (08:56)
[2022-12-29 13:38] VITALS: BP 171/57; TEMP 98.2
[2023-01-05] MEDS ORDERED: Ergocalciferol 1.25 MG(50,000 UNITS) CAP PO SCH (09:00)
== END 2022-12-29 14:25 | disposition swing bed (61) | DRG 682 ==
LOC: 2NO 19:25 → T4-A 12-25 15:48
PROVIDERS: ADMIT Internal Medicine; ATTEND Internal Medicine
DX: N17.9 Acute kidney failure, unspecified (principal); L89.313 Pressure ulcer of right buttock, stage 3; E87.20 Acidosis, unspecified; L03.314 Cellulitis of groin; N18.4 Chronic kidney disease, stage 4 (severe); I12.9 Hypertensive chronic kidney disease with stage 1 through stage 4 chronic kidney disease, or unspecified chronic kidney disease; I16.0 Hypertensive urgency; E78.5 Hyperlipidemia, unspecified; R29.6 Repeated falls; D50.9 Iron deficiency anemia, unspecified; L89.152 Pressure ulcer of sacral region, stage 2; D63.1 Anemia in chronic kidney disease; E66.9 Obesity, unspecified; Z79.82 Long term (current) use of aspirin; R31.9 Hematuria, unspecified; R80.9 Proteinuria, unspecified; L89.322 Pressure ulcer of left buttock, stage 2; L89.211 Pressure ulcer of right hip, stage 1; Z79.899 Other long term (current) drug therapy; Z79.84 Long term (current) use of oral hypoglycemic drugs; Z98.890 Other specified postprocedural states; Z91.81 History of falling; Z86.14 Personal history of Methicillin resistant Staphylococcus aureus infection; Z68.31 Body mass index [BMI] 31.0-31.9, adult
CPT/HCPCS: 36415; 36416; 71045; 76770; 80048; 80053; 80202; 81001; 82306; 82570; 83735; 83970; 84100; 84145; 84156; 85025; 87070; 87205; 93306; 97139; J0692; J1650; J1815; J1940; J1956; J2270; J3370-JW; J3490; J7050

== ENCOUNTER 2022-12-30 18:34 | Inpatient (IN) | payer OTHER, MEDICAID ==
[2022-12-30] MEDS ORDERED: Acetaminophen 650 MG Suppository PR PRN (21:16)
[2022-12-30] MEDS ORDERED: Acetaminophen 325 MG TAB PO PRN (21:16)
[2022-12-30] MEDS ORDERED: Ondansetron PF 4 MG/2 ML Vial IVP PRN (21:16)
[2022-12-30] MEDS ORDERED: Ondansetron ODT 4 MG TAB PO PRN (21:16)
[2022-12-30] MEDS ORDERED: HumaLOG 300 UNITS/3 ML VIAL SC PRN (21:43)
[2022-12-30] MEDS ORDERED: Dextrose 5% in Water 1,000 ML IV PRN (21:43)
[2022-12-30] MEDS ORDERED: Dextrose 50% Abboject 50 ML SYRINGE SLOW IVP PRN (21:43)
[2022-12-30 21:57] VITALS: BMI 30.6
[2022-12-30] MEDS: traZODone HCl 50 MG TAB PO PRN (22:17)
[2022-12-30 22:26] LABS: #Basophils 0.1 thou/uL (0.0-0.2); #Eosinphils 0.3 thou/uL (0.0-0.7); #Lymphocytes 1.4 thou/uL (1.20-3.40); #Monocytes 0.9 thou/uL (0.11-0.59); #Neutrophils 6.1 thou/uL (1.40-6.50); %Basophils 0.7 % (0.0-1.0); %Eosinophils 3.3 % (0.0-10.0); %Lymphocytes 15.9 % (21.0-51.0); %Neutrophils 70.1 % (42.0-75.0); Hemoglobin 11.5 g/dL (14.0-18.0); Mean Corpuscular HGB CONC 33.3 g/dL (32.0-36.0); Mean Platelet Volume 9.2 fL (7.4-10.4); Platelet Count 217 10x3/uL (130-400); RBC Distribution Width 14.4 % (11.5-14.5); Red Blood Cell (RBC) Count 3.48 mill/uL (4.70-6.10); White Blood Cell (WBC) Count 8.7 10x3/uL (4.8-10.8)
[2022-12-30 23:43] LABS: Anion Gap 18 mmol/L (10-20); BUN (Urea Nitrogen) 39 mg/dL (8.4-25.7); Calc. Creatinine Clearance 29 mL/min (70-130); Calcium 8.5 mg/dL (7.8-10.44); Carbon Dioxide 12 mmol/L (23-31); Chloride 112 mmol/L (98-107); Estimated GFR 21; Glucose 167 mg/dL (80-115); Sodium 138 mmol/L (136-145)
[2022-12-31 00:53] LABS: Phosphorus 4.3 mg/dL (2.3-4.7)
[2022-12-31] MEDS ORDERED: Melatonin 3 MG TAB PO PRN (03:27)
[2022-12-31] MEDS ORDERED: Sodium Bicarb 50 MEQ/50 ML VIAL IVP SCH (03:45)
[2022-12-31 05:11] LABS: #Eosinphils 0.4 thou/uL (0.0-0.7); #Lymphocytes 1.4 thou/uL (1.20-3.40); #Neutrophils 7.1 thou/uL (1.40-6.50); %Basophils 0.5 % (0.0-1.0); %Eosinophils 4.1 % (0.0-10.0); %Lymphocytes 14.3 % (21.0-51.0); %Monocytes 9.7 % (0.0-10.0); %Neutrophils 71.4 % (42.0-75.0); Hemoglobin 10.6 g/dL (14.0-18.0); Mean Corpuscular HGB CONC 34.4 g/dL (32.0-36.0); Mean Corpuscular Volume 98.9 fl (78.0-98.0); Mean Platelet Volume 8.8 fL (7.4-10.4); Platelet Count 250 10x3/uL (130-400); RBC Distribution Width 14.5 % (11.5-14.5); Red Blood Cell (RBC) Count 3.11 mill/uL (4.70-6.10); White Blood Cell (WBC) Count 9.9 10x3/uL (4.8-10.8)
[2022-12-31 05:26] LABS: Anion Gap 13 mmol/L (10-20); BUN (Urea Nitrogen) 38 mg/dL (8.4-25.7); Calc. Creatinine Clearance 30 mL/min (70-130); Calcium 8.4 mg/dL (7.8-10.44); Carbon Dioxide 21 mmol/L (23-31); Chloride 111 mmol/L (98-107); Estimated GFR 21; Glucose 117 mg/dL (80-115); Potassium 3.4 mmol/L (3.5-5.1); Sodium 142 mmol/L (136-145)
[2022-12-31] MEDS ORDERED: OLANZapine 10 MG VIAL IM SCH (06:45)
[2022-12-31] MEDS ORDERED: cloNIDine 0.3mg/24 Hour PATCH TD SCH (11:00)
[2022-12-31] MEDS ORDERED: Lorazepam 2 MG/ML VIAL ONE (11:08)
[2022-12-31] MEDS: Heparin 5,000 UNITS/ML VIAL SC SCH ×2 (11:09→21:44)
[2022-12-31] MEDS: hydrALAZINE 25 MG TAB PO SCH ×3 (11:09→21:42)
[2022-12-31] MEDS: NIFEdipine XL 60 MG TAB PO SCH ×2 (11:10→21:44)
[2022-12-31] MEDS: Doxycycline 100 MG CAP PO SCH ×2 (11:12→21:44)
[2022-12-31] MEDS ORDERED: Lorazepam 2 MG/ML VIAL SLOW IVP SCH (11:15)
[2022-12-31] MEDS ORDERED: Sterile Water 10 ML VIAL FS SCH (14:30)
[2022-12-31] MEDS ORDERED: Ziprasidone 20 MG VIAL IM SCH (14:30)
[2022-12-31] MEDS ORDERED: Metoprolol Tartrate 25 MG TAB PO SCH ×2 (17:15→21:00)
[2022-12-31] MEDS: traZODone HCl 50 MG TAB PO PRN (21:44)
[2022-12-31] MEDS ORDERED: Melatonin 3 MG TAB PO SCH (23:45)
[2023-01-01 05:04] LABS: #Eosinphils 0.1 thou/uL (0.0-0.7); #Lymphocytes 1.2 thou/uL (1.20-3.40); #Monocytes 0.6 thou/uL (0.11-0.59); %Basophils 0.3 % (0.0-1.0); %Eosinophils 0.5 % (0.0-10.0); %Lymphocytes 10.7 % (21.0-51.0); %Monocytes 5.5 % (0.0-10.0); Hemoglobin 10.1 g/dL (14.0-18.0); Mean Corpuscular Hemoglobin 32.8 pg (27.0-31.0); Mean Corpuscular Volume 99.6 fl (78.0-98.0); Mean Platelet Volume 8.8 fL (7.4-10.4); Platelet Count 269 10x3/uL (130-400); RBC Distribution Width 14.4 % (11.5-14.5); Red Blood Cell (RBC) Count 3.07 mill/uL (4.70-6.10); White Blood Cell (WBC) Count 10.8 10x3/uL (4.8-10.8)
[2023-01-01 05:29] LABS: Anion Gap 16 mmol/L (10-20); BUN (Urea Nitrogen) 42 mg/dL (8.4-25.7); Calc. Creatinine Clearance 28 mL/min (70-130); Calcium 8.7 mg/dL (7.8-10.44); Carbon Dioxide 21 mmol/L (23-31); Chloride 112 mmol/L (98-107); Estimated GFR 19; Glucose 146 mg/dL (80-115); Potassium 3.6 mmol/L (3.5-5.1); Sodium 145 mmol/L (136-145)
[2023-01-01 05:43] LABS: Amphetamine Not Detected (NotDetected); Barbiturates Screen Not Detected (NotDetected); Benzodiazepine Screen Not Detected (NotDetected); Cocaine Metabolite Screen Not Detected (NotDetected); Methadone Not Detected (NotDetected); Methamphetamine Not Detected (NotDetected); Opiate Screen Detected (NotDetected); Oxycodone Screen Not Detected (NotDetected); Phencyclidine (PCP) Not Detected (NotDetected); THC/Cannabinoid Screen Detected (NotDetected); Tricyclic Screen Not Detected (NotDetected)
[2023-01-01] MEDS: NIFEdipine XL 60 MG TAB PO SCH (10:04)
[2023-01-01] MEDS: hydrALAZINE 25 MG TAB PO SCH ×3 (10:05→21:07)
[2023-01-01] MEDS: Aspirin Chewable 81 MG TAB PO SCH (10:05)
[2023-01-01] MEDS: Sertraline 100 MG TAB PO SCH (10:05)
[2023-01-01] MEDS: Metoprolol Tartrate 25 MG TAB PO SCH ×2 (10:05→21:07)
[2023-01-01] MEDS: Doxycycline 100 MG CAP PO SCH (10:05)
[2023-01-01] MEDS: Heparin 5,000 UNITS/ML VIAL SC SCH ×2 (10:06→21:08)
[2023-01-01] MEDS ORDERED: Baclofen 10 MG TAB PO SCH ×2 (15:15→15:18)
[2023-01-01] MEDS ORDERED: Ergocalciferol 1.25 MG(50,000 UNITS) CAP PO SCH (15:15)
[2023-01-01] MEDS ORDERED: cloNIDine 0.3mg/24 Hour PATCH TD SCH (15:15)
[2023-01-01] MEDS ORDERED: Lorazepam 0.5 MG TAB PO PRN ×2 (15:18→15:21)
[2023-01-01] MEDS ORDERED: Sodium Bicarbonate Tab 325 MG TAB PO SCH (15:30)
[2023-01-01] MEDS ORDERED: Lorazepam 1 MG TAB PO SCH (15:30)
[2023-01-01] MEDS: cefTRIAXone\\ROCEPHIN 1 GM in Sodium Chloride 0.9% 100 ML IVPB SCH (15:39)
[2023-01-01 18:49] LABS: Bilirubin Negative (Negative); Blood, Urine 2+ (Negative); Clarity Clear (Clear); Glucose, Urine (Dipstick) 200 mg/dL (Negative); Ketone, Urine 10 mg/dL (Negative); Leukocyte Negative Leu/uL (Negative); Nitrite Negative (Negative); Protein, Urine (Dipstick) 600 mg/dL (Neg-Trace); RBC/HPF 0-3 HPF (0-3); Squamous Epithelial 0-3 HPF (0-3); Urobilinogen Normal mg/dL (Less than 2); pH, Urine 6.5 (5.0-9.0)
[2023-01-01 18:51] LABS: Bacteria/HPF 1+ HPF (None Seen)
[2023-01-01] MEDS ORDERED: Folic Acid/Vit B Comp W-C PO SCH (21:00)
[2023-01-01] MEDS: Sodium Bicarbonate Tab 325 MG TAB PO SCH (21:07)
[2023-01-01] MEDS: traZODone HCl 50 MG TAB PO PRN (21:07)
[2023-01-01] MEDS: Baclofen 10 MG TAB PO SCH (21:07)
[2023-01-01] MEDS ORDERED: Labetalol HCl 100 MG/20 ML VIAL SLOW IVP PRN (21:10)
[2023-01-01] MEDS ORDERED: Multivitamins, Adult 10 ML, Folic Acid 1 MG, Thiamine HCl 100 MG in Dextrose 5 %-0.45 %... IV SCH (21:15)
[2023-01-01] MEDS ORDERED: Dextrose 5 %-0.45 % NaCl 1,000 ML IV SCH (21:30)
[2023-01-01] MEDS ORDERED: Thiamine 100 MG TAB PO SCH (21:30)
[2023-01-01] MEDS ORDERED: Lorazepam 2 MG/ML VIAL SLOW IVP PRN (21:40)
[2023-01-01] MEDS ORDERED: Lorazepam 2 MG/ML VIAL SLOW IVP SCH (21:45)
[2023-01-01] MEDS ORDERED: NIFEdipine XL 30 MG TAB PO PRN (21:47)
[2023-01-02 04:51] LABS: #Basophils 0.1 thou/uL (0.0-0.2); #Eosinphils 0.4 thou/uL (0.0-0.7); #Lymphocytes 2.6 thou/uL (1.20-3.40); #Neutrophils 6.1 thou/uL (1.40-6.50); %Basophils 0.9 % (0.0-1.0); %Eosinophils 3.9 % (0.0-10.0); %Lymphocytes 25.1 % (21.0-51.0); %Monocytes 9.9 % (0.0-10.0); %Neutrophils 60.3 % (42.0-75.0); Hemoglobin 10.9 g/dL (14.0-18.0); Mean Corpuscular HGB CONC 33.6 g/dL (32.0-36.0); Mean Corpuscular Hemoglobin 33.3 pg (27.0-31.0); Mean Corpuscular Volume 99.2 fl (78.0-98.0); Mean Platelet Volume 8.8 fL (7.4-10.4); Platelet Count 249 10x3/uL (130-400); RBC Distribution Width 14.4 % (11.5-14.5); Red Blood Cell (RBC) Count 3.28 mill/uL (4.70-6.10); White Blood Cell (WBC) Count 10.2 10x3/uL (4.8-10.8)
[2023-01-02 05:04] LABS: ALT (SGPT) 19 U/L (8-55); AST (SGOT) 36 U/L (5-34); Albumin 3.1 g/dL (3.4-4.8); Alkaline Phosphatase 115 U/L (40-110); Anion Gap 14 mmol/L (10-20); BUN (Urea Nitrogen) 44 mg/dL (8.4-25.7); Bilirubin, Total 0.5 mg/dL (0.2-1.2); CK (CPK) 387 U/L (30-200); CRP (Inflammatory) 0.82 mg/dL (= or < 0.5); Calc. Creatinine Clearance 28 mL/min (70-130); Calcium 8.4 mg/dL (7.8-10.44); Carbon Dioxide 23 mmol/L (23-31); Chloride 111 mmol/L (98-107); Estimated GFR 20; Glucose 122 mg/dL (80-115); Phosphorus 5.2 mg/dL (2.3-4.7); Potassium 3.3 mmol/L (3.5-5.1); Protein, Total 6.1 g/dL (5.8-8.1); Sodium 145 mmol/L (136-145)
[2023-01-02] MEDS ORDERED: Dextrose 5 %-0.45 % NaCl 1,000 ML IV SCH (08:24)
[2023-01-02] MEDS ORDERED: hydrALAZINE 20 MG/ML VIAL SLOW IVP PRN ×3 (08:24→15:49)
[2023-01-02] MEDS ORDERED: Potassium Bicarbonate/Cit Ac 20 MEQ TAB PO SCH (08:30)
[2023-01-02] MEDS: Heparin 5,000 UNITS/ML VIAL SC SCH ×2 (08:48→20:53)
[2023-01-02] MEDS ORDERED: NIFEdipine XL 60 MG TAB PO SCH (09:00)
[2023-01-02] MEDS ORDERED: hydrALAZINE 20 MG/ML VIAL SLOW IVP SCH (11:00)
[2023-01-02] MEDS: Sertraline 100 MG TAB PO SCH (13:14)
[2023-01-02] MEDS: hydrALAZINE 25 MG TAB PO SCH ×3 (13:14→20:55)
[2023-01-02] MEDS: Sodium Bicarbonate Tab 325 MG TAB PO SCH ×2 (13:17→20:44)
[2023-01-02] MEDS: Aspirin Chewable 81 MG TAB PO SCH (13:18)
[2023-01-02] MEDS: Baclofen 10 MG TAB PO SCH ×2 (13:18→20:54)
[2023-01-02] MEDS: Thiamine 100 MG TAB PO SCH (13:18)
[2023-01-02] MEDS: Folic Acid/Vit B Comp W-C PO SCH (13:18)
[2023-01-02] MEDS ORDERED: Nitroglycerin 2% Ointment 1 INCH/1 GM Packet TOP SCH ×2 (14:00→22:00)
[2023-01-02] MEDS ORDERED: cloNIDine 0.1 MG TAB PO PRN (15:47)
[2023-01-02] MEDS ORDERED: Cyanocobalamin 1000 MCG/ML VIAL IM SCH (16:00)
[2023-01-02] MEDS ORDERED: cloNIDine 0.1mg/24 Hour PATCH TD SCH (16:00)
[2023-01-02] MEDS ORDERED: Lorazepam 0.5 MG TAB PO PRN (16:43)
[2023-01-02] MEDS: cefTRIAXone\\ROCEPHIN 1 GM in Sodium Chloride 0.9% 100 ML IVPB SCH (17:03)
[2023-01-02] MEDS ORDERED: NIFEdipine XL 30 MG TAB PO SCH ×2 (21:00)
[2023-01-02] MEDS: Nitroglycerin 2% Ointment 1 INCH/1 GM Packet TOP SCH (22:58)
[2023-01-03 05:02] LABS: #Eosinphils 0.5 thou/uL (0.0-0.7); #Lymphocytes 2.2 thou/uL (1.20-3.40); #Neutrophils 7.7 thou/uL (1.40-6.50); %Basophils 0.4 % (0.0-1.0); %Eosinophils 4.5 % (0.0-10.0); %Lymphocytes 19.1 % (21.0-51.0); %Monocytes 9.1 % (0.0-10.0); %Neutrophils 66.9 % (42.0-75.0); Hemoglobin 10.9 g/dL (14.0-18.0); Mean Corpuscular Hemoglobin 32.9 pg (27.0-31.0); Mean Corpuscular Volume 99.9 fl (78.0-98.0); Platelet Count 253 10x3/uL (130-400); RBC Distribution Width 14.3 % (11.5-14.5); White Blood Cell (WBC) Count 11.5 10x3/uL (4.8-10.8)
[2023-01-03 05:14] LABS: Anion Gap 13 mmol/L (10-20); BUN (Urea Nitrogen) 49 mg/dL (8.4-25.7); Calc. Creatinine Clearance 27 mL/min (70-130); Calcium 8.1 mg/dL (7.8-10.44); Carbon Dioxide 22 mmol/L (23-31); Chloride 111 mmol/L (98-107); Estimated GFR 19; Glucose 144 mg/dL (80-115); Magnesium 2.1 mg/dL (1.6-2.6); Potassium 3.2 mmol/L (3.5-5.1); Sodium 143 mmol/L (136-145)
[2023-01-03] MEDS: Nitroglycerin 2% Ointment 1 INCH/1 GM Packet TOP SCH (06:11)
[2023-01-03] MEDS ORDERED: Potassium Bicarbonate/Cit Ac 20 MEQ TAB PO SCH (07:45)
[2023-01-03] MEDS: hydrALAZINE 25 MG TAB PO SCH ×3 (08:52→20:55)
[2023-01-03] MEDS: Aspirin Chewable 81 MG TAB PO SCH (08:52)
[2023-01-03] MEDS: Thiamine 100 MG TAB PO SCH (08:53)
[2023-01-03] MEDS: Baclofen 10 MG TAB PO SCH ×2 (08:53→20:56)
[2023-01-03] MEDS: Cyanocobalamin (Vitamin B-12) 1,000 MCG TAB PO SCH (08:53)
[2023-01-03] MEDS: Folic Acid/Vit B Comp W-C PO SCH (08:53)
[2023-01-03] MEDS: Heparin 5,000 UNITS/ML VIAL SC SCH ×2 (08:54→20:56)
[2023-01-03] MEDS: Sertraline 100 MG TAB PO SCH (08:54)
[2023-01-03] MEDS: NIFEdipine XL 60 MG TAB PO SCH (08:54)
[2023-01-03] MEDS: HumaLOG 300 UNITS/3 ML VIAL SC PRN ×2 (11:25→17:25)
[2023-01-03] MEDS: cefTRIAXone\\ROCEPHIN 1 GM in Sodium Chloride 0.9% 100 ML IVPB SCH (16:03)
[2023-01-03] MEDS ORDERED: hydrALAZINE 25 MG TAB PO SCH (16:30)
[2023-01-03] MEDS: Senokot S 8.6-50 MG TAB PO SCH (20:56)
[2023-01-04 03:55] LABS: #Basophils 0.1 thou/uL (0.0-0.2); #Eosinphils 0.5 thou/uL (0.0-0.7); #Lymphocytes 2.2 thou/uL (1.20-3.40); #Neutrophils 6.9 thou/uL (1.40-6.50); %Basophils 0.7 % (0.0-1.0); %Eosinophils 4.8 % (0.0-10.0); %Lymphocytes 20.1 % (21.0-51.0); %Monocytes 9.5 % (0.0-10.0); %Neutrophils 64.9 % (42.0-75.0); Mean Corpuscular HGB CONC 34.1 g/dL (32.0-36.0); Mean Corpuscular Volume 99.8 fl (78.0-98.0); Mean Platelet Volume 9.1 fL (7.4-10.4); Platelet Count 215 10x3/uL (130-400); RBC Distribution Width 14.2 % (11.5-14.5); Red Blood Cell (RBC) Count 2.95 mill/uL (4.70-6.10); White Blood Cell (WBC) Count 10.7 10x3/uL (4.8-10.8)
[2023-01-04 04:12] LABS: Hemoglobin A1c 5.9 % (4.0-6.0)
[2023-01-04 04:24] LABS: Anion Gap 10 mmol/L (10-20); BUN (Urea Nitrogen) 55 mg/dL (8.4-25.7); Calc. Creatinine Clearance 25 mL/min (70-130); Calcium 7.9 mg/dL (7.8-10.44); Carbon Dioxide 26 mmol/L (23-31); Chloride 110 mmol/L (98-107); Estimated GFR 17; Glucose 235 mg/dL (80-115); Potassium 3.3 mmol/L (3.5-5.1); Sodium 143 mmol/L (136-145)
[2023-01-04] MEDS: hydrALAZINE 20 MG/ML VIAL SLOW IVP PRN ×3 (06:03→19:04)
[2023-01-04] MEDS: Insulin NPH Human Isophane 100 UNIT/ML (10 ML VIAL) SC SCH (09:18)
[2023-01-04] MEDS: Heparin 5,000 UNITS/ML VIAL SC SCH ×2 (09:20→21:18)
[2023-01-04] MEDS: NIFEdipine XL 60 MG TAB PO SCH ×2 (09:21→18:30)
[2023-01-04] MEDS: hydrALAZINE 25 MG TAB PO SCH ×3 (09:21→21:16)
[2023-01-04] MEDS: Cyanocobalamin (Vitamin B-12) 1,000 MCG TAB PO SCH (09:24)
[2023-01-04] MEDS: Sertraline 100 MG TAB PO SCH (09:24)
[2023-01-04] MEDS: Folic Acid/Vit B Comp W-C PO SCH (09:26)
[2023-01-04] MEDS: Thiamine 100 MG TAB PO SCH (09:27)
[2023-01-04] MEDS: Senokot S 8.6-50 MG TAB PO SCH ×2 (09:27→21:17)
[2023-01-04] MEDS: Baclofen 10 MG TAB PO SCH ×2 (09:27→21:17)
[2023-01-04] MEDS: Aspirin Chewable 81 MG TAB PO SCH (09:27)
[2023-01-04] MEDS: HumaLOG 300 UNITS/3 ML VIAL SC PRN ×3 (12:00→22:18)
[2023-01-04] MEDS ORDERED: Polyethylene Glycol 3350 17 GM Packet PO SCH (15:45)
[2023-01-04] MEDS ORDERED: NIFEdipine XL 30 MG TAB PO SCH ×2 (16:00→21:00)
[2023-01-04] MEDS ORDERED: cloNIDine 0.1 MG TAB PO PRN (16:04)
[2023-01-04] MEDS: cefTRIAXone\\ROCEPHIN 1 GM in Sodium Chloride 0.9% 100 ML IVPB SCH (16:08)
[2023-01-04] MEDS: Carvedilol 6.25 MG TAB PO SCH (16:11)
[2023-01-04] MEDS ORDERED: Carvedilol 3.125 MG TAB PO SCH (17:00)
[2023-01-04] MEDS ORDERED: Potassium Bicarbonate/Cit Ac 20 MEQ TAB PO SCH ×2 (21:00→21:30)
[2023-01-04] MEDS: Bisacodyl 10 MG SUPP PR SCH (21:18)
[2023-01-05 04:20] LABS: #Basophils 0.1 thou/uL (0.0-0.2); #Eosinphils 0.6 thou/uL (0.0-0.7); #Lymphocytes 1.9 thou/uL (1.20-3.40); #Neutrophils 7.3 thou/uL (1.40-6.50); %Basophils 0.5 % (0.0-1.0); %Eosinophils 5.1 % (0.0-10.0); %Lymphocytes 17.9 % (21.0-51.0); %Monocytes 9.2 % (0.0-10.0); %Neutrophils 67.2 % (42.0-75.0); Hemoglobin 10.1 g/dL (14.0-18.0); Mean Corpuscular Hemoglobin 32.9 pg (27.0-31.0); Mean Corpuscular Volume 99.9 fl (78.0-98.0); Mean Platelet Volume 9.1 fL (7.4-10.4); Platelet Count 223 10x3/uL (130-400); RBC Distribution Width 14.2 % (11.5-14.5); Red Blood Cell (RBC) Count 3.06 mill/uL (4.70-6.10); White Blood Cell (WBC) Count 10.8 10x3/uL (4.8-10.8)
[2023-01-05 04:36] LABS: Anion Gap 11 mmol/L (10-20); BUN (Urea Nitrogen) 58 mg/dL (8.4-25.7); Calc. Creatinine Clearance 31 mL/min (70-130); Calcium 7.9 mg/dL (7.8-10.44); Carbon Dioxide 26 mmol/L (23-31); Chloride 108 mmol/L (98-107); Estimated GFR 21; Glucose 235 mg/dL (80-115); Potassium 3.7 mmol/L (3.5-5.1); Sodium 141 mmol/L (136-145)
[2023-01-05] MEDS: HumaLOG 300 UNITS/3 ML VIAL SC PRN ×3 (06:41→21:19)
[2023-01-05] MEDS ORDERED: NIFEdipine XL 90 MG TAB PO SCH (09:00)
[2023-01-05] MEDS: Aspirin Chewable 81 MG TAB PO SCH (09:39)
[2023-01-05] MEDS: NIFEdipine XL 60 MG TAB PO SCH ×2 (09:39→21:11)
[2023-01-05] MEDS: Folic Acid/Vit B Comp W-C PO SCH (09:39)
[2023-01-05] MEDS: Polyethylene Glycol 3350 17 GM Packet PO SCH (09:39)
[2023-01-05] MEDS: Sertraline 100 MG TAB PO SCH (09:40)
[2023-01-05] MEDS: hydrALAZINE 25 MG TAB PO SCH ×3 (09:40→21:11)
[2023-01-05] MEDS: Carvedilol 6.25 MG TAB PO SCH ×2 (09:41→17:52)
[2023-01-05] MEDS: Senokot S 8.6-50 MG TAB PO SCH ×2 (09:41→21:10)
[2023-01-05] MEDS: Baclofen 10 MG TAB PO SCH ×2 (09:41→21:11)
[2023-01-05] MEDS: Cyanocobalamin (Vitamin B-12) 1,000 MCG TAB PO SCH (09:41)
[2023-01-05] MEDS: Heparin 5,000 UNITS/ML VIAL SC SCH ×2 (09:42→21:12)
[2023-01-05] MEDS: Thiamine 100 MG TAB PO SCH (09:42)
[2023-01-05] MEDS: Insulin NPH Human Isophane 100 UNIT/ML (10 ML VIAL) SC SCH (09:43)
[2023-01-05] MEDS ORDERED: cloNIDine 0.2mg/24 Hour PATCH TD SCH (10:00)
[2023-01-05] MEDS: cefTRIAXone\\ROCEPHIN 1 GM in Sodium Chloride 0.9% 100 ML IVPB SCH (14:56)
[2023-01-05] MEDS: Bisacodyl 10 MG SUPP PR SCH (21:11)
[2023-01-06 05:04] LABS: #Basophils 0.1 thou/uL (0.0-0.2); #Eosinphils 0.7 thou/uL (0.0-0.7); #Lymphocytes 1.8 thou/uL (1.20-3.40); #Monocytes 0.9 thou/uL (0.11-0.59); #Neutrophils 6.3 thou/uL (1.40-6.50); %Basophils 0.9 % (0.0-1.0); %Eosinophils 7.2 % (0.0-10.0); %Lymphocytes 18.2 % (21.0-51.0); %Monocytes 9.2 % (0.0-10.0); %Neutrophils 64.5 % (42.0-75.0); Hemoglobin 10.7 g/dL (14.0-18.0); Mean Corpuscular HGB CONC 33.1 g/dL (32.0-36.0); Mean Corpuscular Volume 99.8 fl (78.0-98.0); Mean Platelet Volume 9.6 fL (7.4-10.4); Platelet Count 222 10x3/uL (130-400); RBC Distribution Width 14.3 % (11.5-14.5); Red Blood Cell (RBC) Count 3.23 mill/uL (4.70-6.10); White Blood Cell (WBC) Count 9.8 10x3/uL (4.8-10.8)
[2023-01-06 05:29] LABS: Anion Gap 14 mmol/L (10-20); BUN (Urea Nitrogen) 58 mg/dL (8.4-25.7); Calc. Creatinine Clearance 32 mL/min (70-130); Calcium 8.3 mg/dL (7.8-10.44); Carbon Dioxide 24 mmol/L (23-31); Chloride 109 mmol/L (98-107); Estimated GFR 21; Glucose 213 mg/dL (80-115); Potassium 3.9 mmol/L (3.5-5.1); Sodium 143 mmol/L (136-145)
[2023-01-06] MEDS: Polyethylene Glycol 3350 17 GM Packet PO SCH (08:31)
[2023-01-06] MEDS: Senokot S 8.6-50 MG TAB PO SCH ×2 (08:31→22:01)
[2023-01-06] MEDS: NIFEdipine XL 60 MG TAB PO SCH ×2 (08:41→21:58)
[2023-01-06] MEDS: hydrALAZINE 25 MG TAB PO SCH ×3 (08:41→21:59)
[2023-01-06] MEDS: Carvedilol 6.25 MG TAB PO SCH ×3 (08:41→22:00)
[2023-01-06] MEDS: Sertraline 100 MG TAB PO SCH (08:42)
[2023-01-06] MEDS: Folic Acid/Vit B Comp W-C PO SCH (08:42)
[2023-01-06] MEDS: Thiamine 100 MG TAB PO SCH (08:42)
[2023-01-06] MEDS: Aspirin Chewable 81 MG TAB PO SCH (08:42)
[2023-01-06] MEDS: Cyanocobalamin (Vitamin B-12) 1,000 MCG TAB PO SCH (08:42)
[2023-01-06] MEDS: Baclofen 10 MG TAB PO SCH ×2 (08:43→22:00)
[2023-01-06] MEDS: Insulin NPH Human Isophane 100 UNIT/ML (10 ML VIAL) SC SCH (08:43)
[2023-01-06] MEDS: Heparin 5,000 UNITS/ML VIAL SC SCH ×2 (08:43→22:01)
[2023-01-06] MEDS: HumaLOG 300 UNITS/3 ML VIAL SC PRN ×4 (08:47→22:07)
[2023-01-07 04:44] LABS: Anion Gap 11 mmol/L (10-20); BUN (Urea Nitrogen) 65 mg/dL (8.4-25.7); Calc. Creatinine Clearance 34 mL/min (70-130); Calcium 8.3 mg/dL (7.8-10.44); Carbon Dioxide 27 mmol/L (23-31); Chloride 107 mmol/L (98-107); Estimated GFR 23; Glucose 181 mg/dL (80-115); Sodium 141 mmol/L (136-145)
[2023-01-07] MEDS: hydrALAZINE 25 MG TAB PO SCH ×3 (06:13→20:53)
[2023-01-07] MEDS: Carvedilol 6.25 MG TAB PO SCH ×3 (06:14→20:54)
[2023-01-07] MEDS: Senokot S 8.6-50 MG TAB PO SCH ×2 (07:46→20:45)
[2023-01-07] MEDS: Polyethylene Glycol 3350 17 GM Packet PO SCH (07:46)
[2023-01-07] MEDS: Folic Acid/Vit B Comp W-C PO SCH (08:16)
[2023-01-07] MEDS: Sertraline 100 MG TAB PO SCH (08:16)
[2023-01-07] MEDS: NIFEdipine XL 60 MG TAB PO SCH ×2 (08:16→20:42)
[2023-01-07] MEDS: Aspirin Chewable 81 MG TAB PO SCH (08:16)
[2023-01-07] MEDS: Thiamine 100 MG TAB PO SCH (08:16)
[2023-01-07] MEDS: Heparin 5,000 UNITS/ML VIAL SC SCH ×2 (08:16→20:41)
[2023-01-07] MEDS: Baclofen 10 MG TAB PO SCH ×2 (08:16→20:44)
[2023-01-07] MEDS: Cyanocobalamin (Vitamin B-12) 1,000 MCG TAB PO SCH (08:16)
[2023-01-07] MEDS: Insulin NPH Human Isophane 100 UNIT/ML (10 ML VIAL) SC SCH (08:17)
[2023-01-07] MEDS: HumaLOG 300 UNITS/3 ML VIAL SC PRN ×3 (08:17→17:11)
[2023-01-07] MEDS ORDERED: cloNIDine 0.3mg/24 Hour PATCH TD SCH (09:00)
[2023-01-08] MEDS: hydrALAZINE 25 MG TAB PO SCH ×3 (05:16→22:10)
[2023-01-08 05:17] LABS: Anion Gap 10 mmol/L (10-20); BUN (Urea Nitrogen) 68 mg/dL (8.4-25.7); Calc. Creatinine Clearance 34 mL/min (70-130); Calcium 8.1 mg/dL (7.8-10.44); Carbon Dioxide 25 mmol/L (23-31); Chloride 106 mmol/L (98-107); Estimated GFR 23; Glucose 200 mg/dL (80-115); Potassium 4.1 mmol/L (3.5-5.1); Sodium 137 mmol/L (136-145)
[2023-01-08] MEDS: Carvedilol 6.25 MG TAB PO SCH ×3 (05:17→22:11)
[2023-01-08] MEDS ORDERED: Bumetanide 1 MG/4 ML VIAL IVP SCH ×2 (08:15→14:00)
[2023-01-08] MEDS ORDERED: Ergocalciferol 1.25 MG(50,000 UNITS) CAP PO SCH (09:00)
[2023-01-08] MEDS ORDERED: cloNIDine 0.3mg/24 Hour PATCH TD SCH ×2 (09:00)
[2023-01-08] MEDS: NIFEdipine XL 60 MG TAB PO SCH ×2 (09:21→20:08)
[2023-01-08] MEDS: Thiamine 100 MG TAB PO SCH (09:22)
[2023-01-08] MEDS: Aspirin Chewable 81 MG TAB PO SCH (09:22)
[2023-01-08] MEDS: Heparin 5,000 UNITS/ML VIAL SC SCH ×2 (09:22→20:08)
[2023-01-08] MEDS: Baclofen 10 MG TAB PO SCH ×2 (09:22→20:09)
[2023-01-08] MEDS: Folic Acid/Vit B Comp W-C PO SCH (09:22)
[2023-01-08] MEDS: Cyanocobalamin (Vitamin B-12) 1,000 MCG TAB PO SCH (09:22)
[2023-01-08] MEDS: Sertraline 100 MG TAB PO SCH (09:22)
[2023-01-08] MEDS: Polyethylene Glycol 3350 17 GM Packet PO SCH (09:23)
[2023-01-08] MEDS: Insulin NPH Human Isophane 100 UNIT/ML (10 ML VIAL) SC SCH (09:23)
[2023-01-08] MEDS: HumaLOG 300 UNITS/3 ML VIAL SC PRN ×4 (09:23→22:11)
[2023-01-08] MEDS: Senokot S 8.6-50 MG TAB PO SCH ×2 (09:23→21:24)
[2023-01-08] MEDS: Albumin 25% 25 GM/100 ML BOT IVPB SCH ×2 (12:17→17:11)
[2023-01-09] MEDS: Albumin 25% 25 GM/100 ML BOT IVPB SCH ×4 (00:26→18:21)
[2023-01-09 05:09] LABS: Anion Gap 14 mmol/L (10-20); BUN (Urea Nitrogen) 76 mg/dL (8.4-25.7); Calc. Creatinine Clearance 32 mL/min (70-130); Calcium 8.5 mg/dL (7.8-10.44); Carbon Dioxide 25 mmol/L (23-31); Chloride 105 mmol/L (98-107); Estimated GFR 21; Glucose 284 mg/dL (80-115); Potassium 4.4 mmol/L (3.5-5.1); Sodium 140 mmol/L (136-145)
[2023-01-09] MEDS: HumaLOG 300 UNITS/3 ML VIAL SC PRN ×3 (05:58→20:34)
[2023-01-09] MEDS: hydrALAZINE 25 MG TAB PO SCH ×3 (05:58→20:26)
[2023-01-09] MEDS: Carvedilol 6.25 MG TAB PO SCH ×3 (05:59→20:27)
[2023-01-09] MEDS: Baclofen 10 MG TAB PO SCH ×2 (09:32→20:27)
[2023-01-09] MEDS: Aspirin Chewable 81 MG TAB PO SCH (09:32)
[2023-01-09] MEDS: Thiamine 100 MG TAB PO SCH (09:32)
[2023-01-09] MEDS: Folic Acid/Vit B Comp W-C PO SCH (09:33)
[2023-01-09] MEDS: Cyanocobalamin (Vitamin B-12) 1,000 MCG TAB PO SCH (09:33)
[2023-01-09] MEDS: NIFEdipine XL 60 MG TAB PO SCH ×2 (09:33→20:25)
[2023-01-09] MEDS: Sertraline 100 MG TAB PO SCH (09:34)
[2023-01-09] MEDS: Insulin NPH Human Isophane 100 UNIT/ML (10 ML VIAL) SC SCH (09:35)
[2023-01-09] MEDS: Heparin 5,000 UNITS/ML VIAL SC SCH ×2 (09:35→20:27)
[2023-01-09] MEDS: Polyethylene Glycol 3350 17 GM Packet PO SCH (09:41)
[2023-01-09] MEDS: Senokot S 8.6-50 MG TAB PO SCH ×2 (09:42→20:27)
[2023-01-09] MEDS ORDERED: Bumetanide 1 MG/4 ML VIAL IVP SCH (11:30)
[2023-01-10] MEDS: hydrALAZINE 25 MG TAB PO SCH (05:42)
[2023-01-10] MEDS: Carvedilol 6.25 MG TAB PO SCH (05:42)
[2023-01-10] MEDS: HumaLOG 300 UNITS/3 ML VIAL SC PRN ×2 (06:00→12:24)
[2023-01-10 06:17] LABS: Anion Gap 14 mmol/L (10-20); BUN (Urea Nitrogen) 83 mg/dL (8.4-25.7); Calc. Creatinine Clearance 31 mL/min (70-130); Calcium 8.4 mg/dL (7.8-10.44); Carbon Dioxide 26 mmol/L (23-31); Chloride 104 mmol/L (98-107); Estimated GFR 21; Glucose 239 mg/dL (80-115); Sodium 140 mmol/L (136-145)
[2023-01-10 07:58] VITALS: TEMP 97.7
[2023-01-10] MEDS: Baclofen 10 MG TAB PO SCH (09:52)
[2023-01-10] MEDS: Aspirin Chewable 81 MG TAB PO SCH (09:52)
[2023-01-10] MEDS: NIFEdipine XL 60 MG TAB PO SCH (09:53)
[2023-01-10] MEDS: Cyanocobalamin (Vitamin B-12) 1,000 MCG TAB PO SCH (09:53)
[2023-01-10] MEDS: Thiamine 100 MG TAB PO SCH (09:53)
[2023-01-10] MEDS: Sertraline 100 MG TAB PO SCH (09:53)
[2023-01-10] MEDS: Heparin 5,000 UNITS/ML VIAL SC SCH (09:54)
[2023-01-10] MEDS: Folic Acid/Vit B Comp W-C PO SCH (09:54)
[2023-01-10] MEDS: Insulin NPH Human Isophane 100 UNIT/ML (10 ML VIAL) SC SCH (09:55)
[2023-01-10] MEDS: Polyethylene Glycol 3350 17 GM Packet PO SCH (10:05)
[2023-01-10] MEDS: Senokot S 8.6-50 MG TAB PO SCH (10:05)
[2023-01-10 11:43] VITALS: BP 195/81
[2023-01-12] MEDS ORDERED: cloNIDine 0.3mg/24 Hour PATCH TD SCH (09:00)
== END 2023-01-10 14:39 | DRG 92 ==
LOC: INTOOBSV 20:10 → 2NO 20:10 → OBSVTOIN 12-31 10:22
PROVIDERS: ADMIT Family Medicine; ATTEND Internal Medicine
DX: G92.8 Other toxic encephalopathy (principal); E87.20 Acidosis, unspecified; I13.0 Hypertensive heart and chronic kidney disease with heart failure and stage 1 through stage 4 chronic kidney disease, or unspecified chronic kidney disease; N17.9 Acute kidney failure, unspecified; N18.4 Chronic kidney disease, stage 4 (severe); E78.5 Hyperlipidemia, unspecified; E11.22 Type 2 diabetes mellitus with diabetic chronic kidney disease; I50.9 Heart failure, unspecified; I16.0 Hypertensive urgency; E87.6 Hypokalemia; E11.42 Type 2 diabetes mellitus with diabetic polyneuropathy; G93.89 Other specified disorders of brain; D63.1 Anemia in chronic kidney disease; E53.8 Deficiency of other specified B group vitamins; E11.65 Type 2 diabetes mellitus with hyperglycemia; T42.8X5A Adverse effect of antiparkinsonism drugs and other central muscle-tone depressants, initial encounter; Z79.82 Long term (current) use of aspirin; Z79.899 Other long term (current) drug therapy
CPT/HCPCS: 36415; 36416; 70450; 71045; 74018; 80048; 80053; 80306; 81001; 82550; 82607; 83036; 83735; 84100; 84145; 85025; 86140; 93005; 93010; 93970; 94760; 95819; 95957; 96372; 96374; 97139; G0378; J0360; J0696; J1644; J1815; J2060; J3420; J3486; J3490; J7042; P9047; Q0162

== ENCOUNTER 2023-04-29 13:12 | Inpatient (IN) | payer OTHER, MEDICAID ==
[2023-04-29 13:40] LABS: Actual Bicarbonate (HCO3v) 25.6 mEq/L (22-28); Analyzer IN Cardio ER; Base Excess 0.9 mEq/L (-2.0 to +3.0); Calcium, Ionized (venous) 1.07 mmol/L (1.16-1.32); Chloride (VBG) 106 mmol/L (98-106); Hematocrit-VBG 24 % (42.0-52.0); Hemoglobin (Hb) 8.2 g/dL (12.6-17.4); Potassium (VBG) 3.91 mmol/L (3.70-5.30); Sodium 140.2 mmol/L (133-146); pH (venous) 7.413 (7.32-7.43)
[2023-04-29] MEDS ORDERED: Aspirin Chewable 81 MG TAB ONE (14:02)
[2023-04-29] MEDS ORDERED: Furosemide 40 MG/4 ML VIAL ONE (14:02)
[2023-04-29 14:24] LABS: #Eosinphils 0.6 thou/uL (0.0-0.7); #Monocytes 1.1 thou/uL (0.11-0.59); #Neutrophils 6.4 thou/uL (1.40-6.50); %Basophils 0.4 % (0.0-1.0); %Lymphocytes 14.5 % (21.0-51.0); %Monocytes 11.3 % (0.0-10.0); %Neutrophils 67.1 % (42.0-75.0); Hematocrit 22.5 % (42.0-52.0); Hemoglobin 7.2 g/dL (14.0-18.0); Mean Corpuscular Volume 90.7 fl (78.0-98.0); Platelet Count 195 10x3/uL (130-400); RBC Distribution Width 14.9 % (11.5-14.5); Red Blood Cell (RBC) Count 2.48 mill/uL (4.70-6.10); White Blood Cell (WBC) Count 9.5 10x3/uL (4.8-10.8)
[2023-04-29 14:47] LABS: ALT (SGPT) 13 U/L (8-55); AST (SGOT) 17 U/L (5-34); Albumin 3.7 g/dL (3.4-4.8); Alkaline Phosphatase 77 U/L (40-110); Anion Gap 15 mmol/L (10-20); BUN (Urea Nitrogen) 90 mg/dL (8.4-25.7); Bilirubin, Total 0.4 mg/dL (0.2-1.2); Calc. Creatinine Clearance 0 mL/min (70-130); Calcium 8.7 mg/dL (7.8-10.44); Carbon Dioxide 26 mmol/L (23-31); Chloride 104 mmol/L (98-107); Estimated GFR 15; Globulin 3.1 g/dL (2.4-3.5); Glucose 145 mg/dL (80-115); Potassium 3.8 mmol/L (3.5-5.1); Protein, Total 6.8 g/dL (5.8-8.1); Sodium 141 mmol/L (136-145)
[2023-04-29 15:09] LABS: SARS-CoV-2 NAA Rapid Test Not Detected (NotDetected)
[2023-04-29 15:22] LABS: CKMB 4.1 ng/mL (0-6.6)
[2023-04-29 17:20] LABS: Troponin I 0.065 ng/mL (< 0.028)
[2023-04-29] MEDS ORDERED: Calcium Carbonate 500 MG ChewTAB PO PRN (17:25)
[2023-04-29] MEDS ORDERED: Acetaminophen 650 MG Suppository PR PRN (17:25)
[2023-04-29 19:06] LABS: Actual Bicarbonate (HCO3a) 22.9 mEq/L (22-28); Base Excess (BEa) -2.1 mEq/L (-2.0 to +3.0); Carboxyhemoglobin (COHb) 0.7 gm% (0.0-3.0); Hematocrit-ABG 25 % (42.0-52.0); Hemoglobin (Hb) 8.4 g/dL (14.0-18.0); pH, Arterial 7.376 (7.35-7.45)
[2023-04-29 19:09] LABS: O2 Tension (PaO2), arterial 57.3 mmHg (> 80.0); Puncture Site LRA
[2023-04-29] MEDS ORDERED: Glucagon 1 MG/ML KIT IM PRN (19:15)
[2023-04-29] MEDS ORDERED: Dextrose 50% Abboject 50 ML SYRINGE SLOW IVP PRN (19:15)
[2023-04-29] MEDS ORDERED: Dextrose 5% in Water 1,000 ML IV PRN (19:15)
[2023-04-29] MEDS ORDERED: HumaLOG 300 UNITS/3 ML VIAL SC PRN (19:15)
[2023-04-29 19:31] LABS: Troponin I 0.068 ng/mL (< 0.028)
[2023-04-29] MEDS: Ipratropium/Albuterol 3 ML NEB NEB SCH (20:05)
[2023-04-29] MEDS: Mometasone 100 MCG/Formoterol 5 MCG 120 PUFF INHALER INH SCH (20:06)
[2023-04-29] MEDS: Heparin 5,000 UNITS/ML VIAL SC SCH (20:56)
[2023-04-29] MEDS ORDERED: methylPREDNISolone Sod Succ/PF 125 MG/2 ML VIAL IVP SCH (21:00)
[2023-04-29] MEDS: Sodium Bicarbonate Tab 325 MG TAB PO SCH (21:14)
[2023-04-29] MEDS: guaiFENesin 200 MG TAB PO SCH (21:14)
[2023-04-29] MEDS: Docusate 100 MG CAP PO SCH (21:15)
[2023-04-29] MEDS: Baclofen 10 MG TAB PO SCH (21:15)
[2023-04-29] MEDS: Atorvastatin Calcium 20 MG TAB PO SCH (21:15)
[2023-04-29] MEDS: Carvedilol 6.25 MG TAB PO SCH (21:17)
[2023-04-29] MEDS: Melatonin 3 MG TAB PO SCH (21:18)
[2023-04-29] MEDS: Famotidine 20 MG TAB PO SCH (21:18)
[2023-04-29] MEDS: NIFEdipine XL 60 MG TAB PO SCH (21:18)
[2023-04-29] MEDS: hydrALAZINE 25 MG TAB PO SCH (21:18)
[2023-04-29] MEDS: Minoxidil 2.5 MG TAB PO SCH (21:18)
[2023-04-29 22:29] LABS: Actual Bicarbonate (HCO3a) 24.5 mEq/L (22-28); Base Excess (BEa) -0.6 mEq/L (-2.0 to +3.0); CO2 Tension 42.1 mmHg (35.0-45.0); Calcium, Ionized (arterial) 1.08 mmol/L (1.12-1.30); Carboxyhemoglobin (COHb) 0.3 gm% (0.0-3.0); Hematocrit-ABG 23 % (42.0-52.0); Hemoglobin (Hb) 7.8 g/dL (14.0-18.0); Potassium - ABG Lab 4.09 mmol/L (3.70-5.30); pH, Arterial 7.382 (7.35-7.45)
[2023-04-29 22:30] LABS: ALV-art Gradient 103.535 mmHg (0-20); Puncture Site RRA
[2023-04-30 04:24] LABS: #Monocytes 0.1 thou/uL (0.11-0.59); #Neutrophils 8.8 thou/uL (1.40-6.50); %Basophils 0.2 % (0.0-1.0); %Eosinophils 0.3 % (0.0-10.0); %Lymphocytes 4.9 % (21.0-51.0); %Monocytes 1.5 % (0.0-10.0); %Neutrophils 92.1 % (42.0-75.0); Hemoglobin 7.9 g/dL (14.0-18.0); Mean Corpuscular HGB CONC 31.6 g/dL (32.0-36.0); Mean Corpuscular Hemoglobin 28.5 pg (27.0-31.0); Mean Corpuscular Volume 90.3 fl (78.0-98.0); Mean Platelet Volume 11.5 fL (7.4-10.4); Platelet Count 206 10x3/uL (130-400); RBC Distribution Width 14.4 % (11.5-14.5); Red Blood Cell (RBC) Count 2.77 mill/uL (4.70-6.10); White Blood Cell (WBC) Count 9.6 10x3/uL (4.8-10.8)
[2023-04-30 04:49] LABS: Anion Gap 17 mmol/L (10-20); BUN (Urea Nitrogen) 92 mg/dL (8.4-25.7); Calc. Creatinine Clearance 26 mL/min (70-130); Calcium 8.7 mg/dL (7.8-10.44); Carbon Dioxide 23 mmol/L (23-31); Chloride 103 mmol/L (98-107); Estimated GFR 15; Glucose 216 mg/dL (80-115); Magnesium 2.6 mg/dL (1.6-2.6); Potassium 4.5 mmol/L (3.5-5.1); Sodium 138 mmol/L (136-145)
[2023-04-30] MEDS: Carvedilol 6.25 MG TAB PO SCH ×2 (05:40→15:54)
[2023-04-30] MEDS: Mometasone 100 MCG/Formoterol 5 MCG 120 PUFF INHALER INH SCH ×2 (07:04→21:09)
[2023-04-30] MEDS: Ipratropium/Albuterol 3 ML NEB NEB SCH ×3 (07:06→21:08)
[2023-04-30 07:36] LABS: Hemoglobin A1c 5.8 % (4.0-6.0)
[2023-04-30 07:49] LABS: Creatinine, Urine 72.11 mg/dL (63-166)
[2023-04-30 08:29] LABS: Microalbumin Urine Greater than 200.0 mg/dL (0.5-50.0)
[2023-04-30] MEDS: guaiFENesin 200 MG TAB PO SCH ×2 (08:54→20:36)
[2023-04-30] MEDS: Sodium Bicarbonate Tab 325 MG TAB PO SCH ×2 (08:54→20:36)
[2023-04-30] MEDS: NIFEdipine XL 60 MG TAB PO SCH ×2 (08:54→20:35)
[2023-04-30] MEDS: Minoxidil 2.5 MG TAB PO SCH ×2 (08:54→20:38)
[2023-04-30] MEDS: Sertraline 25 MG TAB PO SCH (08:55)
[2023-04-30] MEDS: hydrALAZINE 25 MG TAB PO SCH ×3 (08:55→20:37)
[2023-04-30] MEDS: Cyanocobalamin (Vitamin B-12) 1,000 MCG TAB PO SCH (08:56)
[2023-04-30] MEDS: Aspirin Chewable 81 MG TAB PO SCH (08:56)
[2023-04-30] MEDS: Heparin 5,000 UNITS/ML VIAL SC SCH ×3 (08:56→20:33)
[2023-04-30] MEDS: Doxazosin 2 MG TAB PO SCH (08:56)
[2023-04-30] MEDS: Baclofen 10 MG TAB PO SCH ×2 (08:56→20:37)
[2023-04-30] MEDS: Folic Acid 1 MG TAB PO SCH (08:56)
[2023-04-30] MEDS: Docusate 100 MG CAP PO SCH ×2 (08:56→20:37)
[2023-04-30] MEDS: Ferrous Fumarate 324 MG TAB PO SCH (08:57)
[2023-04-30] MEDS: Famotidine 20 MG TAB PO SCH (08:57)
[2023-04-30] MEDS: Insulin Glargine 30 UNITS/0.3 ML VIAL SC SCH (08:57)
[2023-04-30] MEDS: Polyethylene Glycol 3350 17 GM Packet PO SCH (08:57)
[2023-04-30] MEDS ORDERED: Non-Formulary Item 1 EACH (Famotidine [Famotidine] 10 MG Tablet) PO SCH (09:00)
[2023-04-30] MEDS ORDERED: methylPREDNISolone Sod Succ/PF 125 MG/2 ML VIAL IVP SCH (09:00)
[2023-04-30] MEDS ORDERED: Furosemide 40 MG/4 ML VIAL SLOW IVP SCH (15:00)
[2023-04-30 15:38] LABS: Bilirubin Negative (Negative); Blood, Urine Negative (Negative); CAUTI Indications for Culture Urological Procedure; Clarity Clear (Clear); Glucose, Urine (Dipstick) 150 mg/dL (Negative); Ketone, Urine Negative (Negative); Leukocyte 250 Leu/uL (Negative); Nitrite Negative (Negative); Protein, Urine (Dipstick) 300 mg/dL (Neg-Trace); RBC/HPF 0-3 HPF (0-3); Specific Gravity, Urine 1.014 (1.002-1.036); Squamous Epithelial 0-3 HPF (0-3); Urobilinogen Normal mg/dL (Less than 2); pH, Urine 5.5 (5.0-9.0)
[2023-04-30] MEDS ORDERED: EPOETIN ALFA-EPBX (ESRD) 10,000 UNITS/ML VIAL SC SCH (16:00)
[2023-04-30 16:03] LABS: Bacteria/HPF 1+ HPF (None Seen)
[2023-04-30 16:05] LABS: Urine Culture Reflex Yes Yes
[2023-04-30] MEDS: Epoetin (ESRD) 10,000 UNITS/ML VIAL SC SCH (17:54)
[2023-04-30] MEDS ORDERED: Insulin Glargine 30 UNITS/0.3 ML VIAL SC SCH (20:00)
[2023-04-30] MEDS: Melatonin 3 MG TAB PO SCH (20:36)
[2023-04-30] MEDS: Atorvastatin Calcium 20 MG TAB PO SCH (20:37)
[2023-04-30] MEDS: Acetaminophen 325 MG TAB PO PRN (20:45)
[2023-04-30] MEDS: HumaLOG 300 UNITS/3 ML VIAL SC PRN (21:24)
[2023-05-01] MEDS ORDERED: hydrOXYzine 25 MG TAB PO SCH (01:01)
[2023-05-01 05:14] LABS: #Monocytes 1.4 thou/uL (0.11-0.59); #Neutrophils 9.2 thou/uL (1.40-6.50); %Basophils 0.2 % (0.0-1.0); %Eosinophils 0.2 % (0.0-10.0); %Lymphocytes 9.9 % (21.0-51.0); %Monocytes 11.6 % (0.0-10.0); %Neutrophils 76.9 % (42.0-75.0); Hematocrit 21.7 % (42.0-52.0); Mean Corpuscular HGB CONC 32.3 g/dL (32.0-36.0); Mean Corpuscular Hemoglobin 28.9 pg (27.0-31.0); Mean Corpuscular Volume 89.7 fl (78.0-98.0); Mean Platelet Volume 11.6 fL (7.4-10.4); Platelet Count 198 10x3/uL (130-400); RBC Distribution Width 14.7 % (11.5-14.5); Red Blood Cell (RBC) Count 2.42 mill/uL (4.70-6.10); White Blood Cell (WBC) Count 11.9 10x3/uL (4.8-10.8)
[2023-05-01] MEDS: Furosemide 40 MG/4 ML VIAL SLOW IVP SCH ×2 (05:30→14:02)
[2023-05-01 05:38] LABS: Anion Gap 19 mmol/L (10-20); BUN (Urea Nitrogen) 107 mg/dL (8.4-25.7); Calc. Creatinine Clearance 28 mL/min (70-130); Calcium 8.6 mg/dL (7.8-10.44); Carbon Dioxide 23 mmol/L (23-31); Chloride 104 mmol/L (98-107); Estimated GFR 14; Glucose 158 mg/dL (80-115); Magnesium 2.8 mg/dL (1.6-2.6); Potassium 3.8 mmol/L (3.5-5.1); Sodium 142 mmol/L (136-145)
[2023-05-01] MEDS: Ipratropium/Albuterol 3 ML NEB NEB SCH ×3 (07:44→21:02)
[2023-05-01] MEDS: Mometasone 100 MCG/Formoterol 5 MCG 120 PUFF INHALER INH SCH ×2 (07:45→21:02)
[2023-05-01] MEDS ORDERED: Carvedilol 6.25 MG TAB PO SCH (08:00)
[2023-05-01] MEDS: Doxazosin 2 MG TAB PO SCH (08:31)
[2023-05-01] MEDS: Polyethylene Glycol 3350 17 GM Packet PO SCH (08:31)
[2023-05-01] MEDS: guaiFENesin 200 MG TAB PO SCH ×2 (08:31→21:31)
[2023-05-01] MEDS: NIFEdipine XL 60 MG TAB PO SCH ×2 (08:31→21:34)
[2023-05-01] MEDS: Sodium Bicarbonate Tab 325 MG TAB PO SCH ×2 (08:31→21:35)
[2023-05-01] MEDS: Cyanocobalamin (Vitamin B-12) 1,000 MCG TAB PO SCH (08:31)
[2023-05-01] MEDS: Folic Acid 1 MG TAB PO SCH (08:32)
[2023-05-01] MEDS: Minoxidil 2.5 MG TAB PO SCH ×2 (08:32→21:32)
[2023-05-01] MEDS: Famotidine 20 MG TAB PO SCH (08:32)
[2023-05-01] MEDS: Ferrous Fumarate 324 MG TAB PO SCH (08:32)
[2023-05-01] MEDS: Docusate 100 MG CAP PO SCH ×2 (08:32→21:31)
[2023-05-01] MEDS: Aspirin Chewable 81 MG TAB PO SCH (08:32)
[2023-05-01] MEDS: Sertraline 25 MG TAB PO SCH (08:32)
[2023-05-01] MEDS: Sevelamer Carbonate 800 MG TAB PO SCH ×3 (08:32→17:40)
[2023-05-01] MEDS: Baclofen 10 MG TAB PO SCH ×2 (08:32→21:32)
[2023-05-01] MEDS: hydrALAZINE 25 MG TAB PO SCH ×3 (08:32→21:33)
[2023-05-01] MEDS: Insulin Glargine 30 UNITS/0.3 ML VIAL SC SCH (08:33)
[2023-05-01] MEDS: Heparin 5,000 UNITS/ML VIAL SC SCH ×3 (08:33→21:36)
[2023-05-01] MEDS ORDERED: CEFAZOLIN 2 GM in Sodium Chloride 0.9% 100 ML IVPB SCH (13:00)
[2023-05-01 16:14] LABS: Hematocrit 24.6 % (42.0-52.0); Mean Corpuscular HGB CONC 32.5 g/dL (32.0-36.0); Mean Corpuscular Hemoglobin 29.1 pg (27.0-31.0); Mean Corpuscular Volume 89.5 fl (78.0-98.0); Mean Platelet Volume 11.2 fL (7.4-10.4); Platelet Count 182 10x3/uL (130-400); RBC Distribution Width 14.7 % (11.5-14.5); Red Blood Cell (RBC) Count 2.75 mill/uL (4.70-6.10); White Blood Cell (WBC) Count 9.7 10x3/uL (4.8-10.8)
[2023-05-01 20:37] LABS: Hematocrit 26.8 % (42.0-52.0); Hemoglobin 8.8 g/dL (14.0-18.0); Mean Corpuscular HGB CONC 32.8 g/dL (32.0-36.0); Mean Corpuscular Hemoglobin 29.1 pg (27.0-31.0); Mean Corpuscular Volume 88.7 fl (78.0-98.0); Mean Platelet Volume 11.2 fL (7.4-10.4); Platelet Count 188 10x3/uL (130-400); RBC Distribution Width 14.8 % (11.5-14.5); Red Blood Cell (RBC) Count 3.02 mill/uL (4.70-6.10); White Blood Cell (WBC) Count 9.3 10x3/uL (4.8-10.8)
[2023-05-01] MEDS: Atorvastatin Calcium 20 MG TAB PO SCH (21:32)
[2023-05-01] MEDS: Melatonin 3 MG TAB PO SCH (21:32)
[2023-05-02 04:31] LABS: #Eosinphils 0.2 thou/uL (0.0-0.7); #Monocytes 0.9 thou/uL (0.11-0.59); #Neutrophils 6.9 thou/uL (1.40-6.50); %Basophils 0.3 % (0.0-1.0); %Eosinophils 1.9 % (0.0-10.0); %Lymphocytes 11.6 % (21.0-51.0); %Monocytes 9.2 % (0.0-10.0); %Neutrophils 74.6 % (42.0-75.0); Hematocrit 27.4 % (42.0-52.0); Hemoglobin 8.8 g/dL (14.0-18.0); Mean Corpuscular HGB CONC 32.1 g/dL (32.0-36.0); Mean Corpuscular Hemoglobin 28.2 pg (27.0-31.0); Mean Corpuscular Volume 87.8 fl (78.0-98.0); Mean Platelet Volume 11.6 fL (7.4-10.4); Platelet Count 202 10x3/uL (130-400); RBC Distribution Width 15.2 % (11.5-14.5); Red Blood Cell (RBC) Count 3.12 mill/uL (4.70-6.10); White Blood Cell (WBC) Count 9.3 10x3/uL (4.8-10.8)
[2023-05-02 05:04] LABS: Anion Gap 18 mmol/L (10-20); BUN (Urea Nitrogen) 101 mg/dL (8.4-25.7); Calc. Creatinine Clearance 25 mL/min (70-130); Calcium 8.4 mg/dL (7.8-10.44); Carbon Dioxide 24 mmol/L (23-31); Chloride 104 mmol/L (98-107); Estimated GFR 15; Glucose 87 mg/dL (80-115); Magnesium 2.6 mg/dL (1.6-2.6); Potassium 3.8 mmol/L (3.5-5.1); Sodium 142 mmol/L (136-145)
[2023-05-02 05:05] LABS: Phosphorus 5.1 mg/dL (2.3-4.7)
[2023-05-02 05:15] LABS: HBSAB Concentration Less than 8.00 mIU/mL; HBSAg Index 0.59 S/CO (0-0.99); Hep B Core Total Ab Non-Reactive (NonReactive); Hep B Core Total Index 0.13 S/CO (0-0.79); Hep B Surf AB Non-Reactive (NonReactive); Hep B Surf Ag Non-Reactive S/CO (NonReactive); Hep C IgG Ab Non-Reactive S/CO (NonReactive); Hep C Index 0.09 S/CO (0-0.79)
[2023-05-02] MEDS: Furosemide 40 MG/4 ML VIAL SLOW IVP SCH (06:10)
[2023-05-02] MEDS: Ipratropium/Albuterol 3 ML NEB NEB SCH ×3 (06:55→18:51)
[2023-05-02] MEDS: Mometasone 100 MCG/Formoterol 5 MCG 120 PUFF INHALER INH SCH ×2 (06:57→18:51)
[2023-05-02] MEDS: Doxazosin 2 MG TAB PO SCH ×2 (08:06→08:42)
[2023-05-02] MEDS: Famotidine 20 MG TAB PO SCH ×2 (08:06→08:42)
[2023-05-02] MEDS: Aspirin Chewable 81 MG TAB PO SCH ×2 (08:06→08:42)
[2023-05-02] MEDS: Baclofen 10 MG TAB PO SCH ×2 (08:06→20:25)
[2023-05-02] MEDS: Cyanocobalamin (Vitamin B-12) 1,000 MCG TAB PO SCH ×2 (08:06→08:42)
[2023-05-02] MEDS: Docusate 100 MG CAP PO SCH ×2 (08:06→20:24)
[2023-05-02] MEDS: Ferrous Fumarate 324 MG TAB PO SCH (08:06)
[2023-05-02] MEDS: guaiFENesin 200 MG TAB PO SCH ×2 (08:07→20:24)
[2023-05-02] MEDS: NIFEdipine XL 60 MG TAB PO SCH ×2 (08:07→08:43)
[2023-05-02] MEDS: Insulin Glargine 30 UNITS/0.3 ML VIAL SC SCH (08:07)
[2023-05-02] MEDS: Minoxidil 2.5 MG TAB PO SCH (08:07)
[2023-05-02] MEDS: Heparin 5,000 UNITS/ML VIAL SC SCH ×3 (08:07→20:25)
[2023-05-02] MEDS: Folic Acid 1 MG TAB PO SCH (08:07)
[2023-05-02] MEDS: hydrALAZINE 25 MG TAB PO SCH ×3 (08:07→20:24)
[2023-05-02] MEDS: Polyethylene Glycol 3350 17 GM Packet PO SCH (08:07)
[2023-05-02] MEDS: Sodium Bicarbonate Tab 325 MG TAB PO SCH (08:08)
[2023-05-02] MEDS: Sertraline 25 MG TAB PO SCH ×2 (08:08→08:43)
[2023-05-02] MEDS ORDERED: Heparin 10,000 UNITS/ 10 ML VIAL ONE (09:17)
[2023-05-02] MEDS ORDERED: EPINEPHrine 1 MG/ML AMP ONE (10:08)
[2023-05-02] MEDS ORDERED: Lidocaine 1% (PF) 30 ML VIAL ONE (10:08)
[2023-05-02] MEDS ORDERED: fentaNYL PF 100 MCG/2 ML SYRINGE ONE (10:09)
[2023-05-02] MEDS ORDERED: Propofol 500 MG/50 ML VIAL ONE (10:09)
[2023-05-02] MEDS ORDERED: Ondansetron PF 4 MG/2 ML Vial ONE (10:25)
[2023-05-02] MEDS: Sevelamer Carbonate 800 MG TAB PO SCH ×2 (11:15→16:42)
[2023-05-02] MEDS ORDERED: Promethazine HCl 25 MG/ML VIAL IM PRN (12:03)
[2023-05-02] MEDS ORDERED: Ondansetron HCl/PF 4 MG/2 ML Vial IVP PRN (12:03)
[2023-05-02 13:12] LABS: Iron 78 ug/dL (65-175); Iron Binding Capacity, Total 236 mcg/dL (261-462)
[2023-05-02] MEDS ORDERED: Tuberculin PPD 0.1 ML VIAL I-DERMAL SCH (14:00)
[2023-05-02] MEDS: Melatonin 3 MG TAB PO SCH (20:24)
[2023-05-02] MEDS: Atorvastatin Calcium 20 MG TAB PO SCH (20:25)
[2023-05-02] MEDS: HumaLOG 300 UNITS/3 ML VIAL SC PRN (21:26)
[2023-05-02 22:16] LABS: Iron 75 ug/dL (65-175); Iron Binding Capacity, Total 214 mcg/dL (261-462)
[2023-05-03 04:47] LABS: #Eosinphils 0.3 thou/uL (0.0-0.7); #Monocytes 1.1 thou/uL (0.11-0.59); #Neutrophils 6.9 thou/uL (1.40-6.50); %Basophils 0.3 % (0.0-1.0); %Eosinophils 2.7 % (0.0-10.0); %Monocytes 12.5 % (0.0-10.0); %Neutrophils 75.2 % (42.0-75.0); Hemoglobin 8.8 g/dL (14.0-18.0); Mean Corpuscular HGB CONC 32.6 g/dL (32.0-36.0); Mean Corpuscular Volume 89.1 fl (78.0-98.0); Mean Platelet Volume 11.1 fL (7.4-10.4); Platelet Count 181 10x3/uL (130-400); RBC Distribution Width 15.2 % (11.5-14.5); Red Blood Cell (RBC) Count 3.03 mill/uL (4.70-6.10); White Blood Cell (WBC) Count 9.1 10x3/uL (4.8-10.8)
[2023-05-03 05:02] LABS: Phosphorus 4.4 mg/dL (2.3-4.7)
[2023-05-03 05:05] LABS: Anion Gap 14 mmol/L (10-20); BUN (Urea Nitrogen) 77 mg/dL (8.4-25.7); Calc. Creatinine Clearance 29 mL/min (70-130); Calcium 8.1 mg/dL (7.8-10.44); Carbon Dioxide 27 mmol/L (23-31); Chloride 103 mmol/L (98-107); Estimated GFR 18; Glucose 197 mg/dL (80-115); Magnesium 2.2 mg/dL (1.6-2.6); Potassium 4.1 mmol/L (3.5-5.1); Sodium 140 mmol/L (136-145)
[2023-05-03] MEDS: HumaLOG 300 UNITS/3 ML VIAL SC PRN ×2 (06:35→11:16)
[2023-05-03] MEDS: Mometasone 100 MCG/Formoterol 5 MCG 120 PUFF INHALER INH SCH ×2 (07:21→19:22)
[2023-05-03] MEDS: Ipratropium/Albuterol 3 ML NEB NEB SCH ×3 (07:24→22:14)
[2023-05-03] MEDS: guaiFENesin 200 MG TAB PO SCH ×2 (08:37→20:20)
[2023-05-03] MEDS: hydrALAZINE 25 MG TAB PO SCH ×3 (08:38→20:19)
[2023-05-03] MEDS: NIFEdipine XL 60 MG TAB PO SCH (08:38)
[2023-05-03] MEDS: Baclofen 10 MG TAB PO SCH ×2 (08:38→20:21)
[2023-05-03] MEDS: Doxazosin 2 MG TAB PO SCH (08:38)
[2023-05-03] MEDS: Aspirin Chewable 81 MG TAB PO SCH (08:38)
[2023-05-03] MEDS: Sevelamer Carbonate 800 MG TAB PO SCH ×3 (08:38→17:52)
[2023-05-03] MEDS: Minoxidil 2.5 MG TAB PO SCH (08:38)
[2023-05-03] MEDS: Famotidine 20 MG TAB PO SCH (08:38)
[2023-05-03] MEDS: Folic Acid 1 MG TAB PO SCH (08:38)
[2023-05-03] MEDS: Docusate 100 MG CAP PO SCH ×2 (08:38→20:19)
[2023-05-03] MEDS: Polyethylene Glycol 3350 17 GM Packet PO SCH (08:39)
[2023-05-03] MEDS: Heparin 5,000 UNITS/ML VIAL SC SCH ×3 (08:39→20:21)
[2023-05-03] MEDS: Insulin Glargine 30 UNITS/0.3 ML VIAL SC SCH (08:39)
[2023-05-03] MEDS: Cyanocobalamin (Vitamin B-12) 1,000 MCG TAB PO SCH (08:39)
[2023-05-03] MEDS: Sertraline 25 MG TAB PO SCH (08:39)
[2023-05-03] MEDS: Acetaminophen 325 MG TAB PO PRN ×2 (08:40→14:56)
[2023-05-03 14:08] LABS: Bilirubin Negative (Negative); Blood, Urine 1+ (Negative); CAUTI Indications for Culture Fever or rigors; Clarity Turbid (Clear); Glucose, Urine (Dipstick) 100 mg/dL (Negative); Ketone, Urine Negative (Negative); Leukocyte 500 Leu/uL (Negative); Nitrite Negative (Negative); Protein, Urine (Dipstick) 300 mg/dL (Neg-Trace); Specific Gravity, Urine 1.015 (1.002-1.036); Squamous Epithelial 0-3 HPF (0-3); Urobilinogen Normal mg/dL (Less than 2); WBC/HPF 21-50 HPF (0-3)
[2023-05-03 14:09] LABS: Bacteria/HPF 1+ HPF (None Seen); Urine Culture Reflex Yes Yes
[2023-05-03] MEDS ORDERED: Fluticasone Propionate Nasal Spray 16 gm Bottle NASAL PRN (14:56)
[2023-05-03] MEDS ORDERED: cloNIDine 0.3mg/24 Hour PATCH TD SCH (18:00)
[2023-05-03] MEDS ORDERED: Melatonin 3 MG TAB PO PRN (19:41)
[2023-05-03] MEDS: Melatonin 3 MG TAB PO SCH (20:20)
[2023-05-03] MEDS: Atorvastatin Calcium 20 MG TAB PO SCH (20:20)
[2023-05-04] MEDS: Doxazosin 2 MG TAB PO SCH (06:25)
[2023-05-04] MEDS ORDERED: Benzocaine 20% Spray 60 ML CAN PO PRN (06:32)
[2023-05-04 07:06] LABS: #Eosinphils 0.4 thou/uL (0.0-0.7); #Monocytes 1.1 thou/uL (0.11-0.59); #Neutrophils 5.5 thou/uL (1.40-6.50); %Basophils 0.3 % (0.0-1.0); %Eosinophils 5.4 % (0.0-10.0); %Lymphocytes 8.1 % (21.0-51.0); %Monocytes 14.1 % (0.0-10.0); %Neutrophils 71.2 % (42.0-75.0); Hematocrit 25.6 % (42.0-52.0); Hemoglobin 8.1 g/dL (14.0-18.0); Mean Corpuscular HGB CONC 31.6 g/dL (32.0-36.0); Mean Corpuscular Hemoglobin 28.6 pg (27.0-31.0); Mean Corpuscular Volume 90.5 fl (78.0-98.0); Mean Platelet Volume 10.6 fL (7.4-10.4); Platelet Count 146 10x3/uL (130-400); Red Blood Cell (RBC) Count 2.83 mill/uL (4.70-6.10); White Blood Cell (WBC) Count 7.7 10x3/uL (4.8-10.8)
[2023-05-04] MEDS: Mometasone 100 MCG/Formoterol 5 MCG 120 PUFF INHALER INH SCH ×2 (07:20→19:37)
[2023-05-04] MEDS: Ipratropium/Albuterol 3 ML NEB NEB SCH (07:23)
[2023-05-04 07:30] LABS: Phosphorus 3.6 mg/dL (2.3-4.7)
[2023-05-04 07:31] LABS: Anion Gap 15 mmol/L (10-20); BUN (Urea Nitrogen) 76 mg/dL (8.4-25.7); Calc. Creatinine Clearance 30 mL/min (70-130); Calcium 8.1 mg/dL (7.8-10.44); Carbon Dioxide 25 mmol/L (23-31); Chloride 107 mmol/L (98-107); Estimated GFR 19; Glucose 113 mg/dL (80-115); Magnesium 2.4 mg/dL (1.6-2.6); Potassium 3.5 mmol/L (3.5-5.1); Sodium 143 mmol/L (136-145)
[2023-05-04] MEDS ORDERED: Ipratropium/Albuterol 3 ML NEB NEB PRN (07:54)
[2023-05-04] MEDS: Sevelamer Carbonate 800 MG TAB PO SCH ×3 (08:38→16:48)
[2023-05-04] MEDS: Cyanocobalamin (Vitamin B-12) 1,000 MCG TAB PO SCH (08:39)
[2023-05-04] MEDS: Sertraline 25 MG TAB PO SCH (08:39)
[2023-05-04] MEDS: guaiFENesin 200 MG TAB PO PRN (08:39)
[2023-05-04] MEDS: Docusate 100 MG CAP PO SCH ×2 (08:40→21:32)
[2023-05-04] MEDS: Aspirin Chewable 81 MG TAB PO SCH (08:40)
[2023-05-04] MEDS: Minoxidil 2.5 MG TAB PO SCH (08:40)
[2023-05-04] MEDS: Folic Acid 1 MG TAB PO SCH (08:40)
[2023-05-04] MEDS: Baclofen 10 MG TAB PO SCH ×2 (08:40→21:32)
[2023-05-04] MEDS: Insulin Glargine 30 UNITS/0.3 ML VIAL SC SCH (08:41)
[2023-05-04] MEDS: hydrALAZINE 25 MG TAB PO SCH ×3 (08:41→21:32)
[2023-05-04] MEDS: Heparin 5,000 UNITS/ML VIAL SC SCH ×3 (08:41→21:31)
[2023-05-04] MEDS: Famotidine 20 MG TAB PO SCH (08:41)
[2023-05-04] MEDS: NIFEdipine XL 60 MG TAB PO SCH (08:42)
[2023-05-04] MEDS: Polyethylene Glycol 3350 17 GM Packet PO SCH (08:52)
[2023-05-04] MEDS ORDERED: Triple Antibiotic Ointment 30 GM TUBE TOP SCH (09:00)
[2023-05-04] MEDS ORDERED: Fluticasone Propionate Nasal Spray 16 gm Bottle NASAL SCH (09:00)
[2023-05-04] MEDS ORDERED: Heparin 10,000 UNITS/ 10 ML VIAL ONE (11:16)
[2023-05-04] MEDS: Mupirocin 2% Ointment 22 GM Tube TOP SCH ×2 (16:49→21:31)
[2023-05-04] MEDS: Melatonin 3 MG TAB PO SCH (21:32)
[2023-05-04] MEDS: Atorvastatin Calcium 20 MG TAB PO SCH (21:32)
[2023-05-05 04:06] LABS: #Eosinphils 0.7 thou/uL (0.0-0.7); #Monocytes 1.4 thou/uL (0.11-0.59); #Neutrophils 5.4 thou/uL (1.40-6.50); %Basophils 0.4 % (0.0-1.0); %Eosinophils 8.5 % (0.0-10.0); %Lymphocytes 9.3 % (21.0-51.0); %Monocytes 16.9 % (0.0-10.0); %Neutrophils 64.1 % (42.0-75.0); Hematocrit 25.9 % (42.0-52.0); Hemoglobin 8.3 g/dL (14.0-18.0); Mean Corpuscular Hemoglobin 29.1 pg (27.0-31.0); Mean Corpuscular Volume 90.9 fl (78.0-98.0); Mean Platelet Volume 11.6 fL (7.4-10.4); Platelet Count 161 10x3/uL (130-400); RBC Distribution Width 14.8 % (11.5-14.5); Red Blood Cell (RBC) Count 2.85 mill/uL (4.70-6.10); White Blood Cell (WBC) Count 8.4 10x3/uL (4.8-10.8)
[2023-05-05 04:32] LABS: Anion Gap 10 mmol/L (10-20); BUN (Urea Nitrogen) 49 mg/dL (8.4-25.7); Calc. Creatinine Clearance 36 mL/min (70-130); Calcium 8.1 mg/dL (7.8-10.44); Carbon Dioxide 26 mmol/L (23-31); Chloride 107 mmol/L (98-107); Estimated GFR 23; Glucose 129 mg/dL (80-115); Magnesium 2.1 mg/dL (1.6-2.6); Potassium 3.2 mmol/L (3.5-5.1); Sodium 140 mmol/L (136-145)
[2023-05-05 05:17] LABS: Phosphorus 2.4 mg/dL (2.3-4.7)
[2023-05-05] MEDS: Mometasone 100 MCG/Formoterol 5 MCG 120 PUFF INHALER INH SCH ×2 (06:58→19:15)
[2023-05-05] MEDS ORDERED: Potassium Chloride 20 MEQ TAB PO SCH (08:30)
[2023-05-05] MEDS: NIFEdipine XL 60 MG TAB PO SCH (10:02)
[2023-05-05] MEDS: Sertraline 25 MG TAB PO SCH (10:02)
[2023-05-05] MEDS: Sevelamer Carbonate 800 MG TAB PO SCH ×3 (10:02→17:32)
[2023-05-05] MEDS: hydrALAZINE 25 MG TAB PO SCH ×3 (10:03→21:12)
[2023-05-05] MEDS: Folic Acid 1 MG TAB PO SCH (10:04)
[2023-05-05] MEDS: Aspirin Chewable 81 MG TAB PO SCH (10:04)
[2023-05-05] MEDS: Baclofen 10 MG TAB PO SCH ×2 (10:04→21:13)
[2023-05-05] MEDS: Heparin 5,000 UNITS/ML VIAL SC SCH ×3 (10:04→21:14)
[2023-05-05] MEDS: Docusate 100 MG CAP PO SCH ×2 (10:04→21:13)
[2023-05-05] MEDS: Cyanocobalamin (Vitamin B-12) 1,000 MCG TAB PO SCH (10:04)
[2023-05-05] MEDS: Doxazosin 2 MG TAB PO SCH (10:04)
[2023-05-05] MEDS: Minoxidil 2.5 MG TAB PO SCH (10:04)
[2023-05-05] MEDS: Famotidine 20 MG TAB PO SCH (10:04)
[2023-05-05] MEDS: Insulin Glargine 30 UNITS/0.3 ML VIAL SC SCH (10:05)
[2023-05-05] MEDS: Mupirocin 2% Ointment 22 GM Tube TOP SCH ×3 (10:05→21:14)
[2023-05-05] MEDS: Polyethylene Glycol 3350 17 GM Packet PO SCH (10:06)
[2023-05-05] MEDS ORDERED: NIFEdipine XL 30 MG TAB PO SCH (10:41)
[2023-05-05] MEDS ORDERED: Doxycycline 100 MG CAP PO SCH (12:32)
[2023-05-05] MEDS: Melatonin 3 MG TAB PO SCH (21:13)
[2023-05-05] MEDS: Atorvastatin Calcium 20 MG TAB PO SCH (21:13)
[2023-05-05] MEDS: Doxycycline 100 MG CAP PO SCH (21:13)
[2023-05-06 04:15] LABS: #Eosinphils 0.8 thou/uL (0.0-0.7); #Monocytes 1.2 thou/uL (0.11-0.59); #Neutrophils 4.4 thou/uL (1.40-6.50); %Basophils 0.3 % (0.0-1.0); %Lymphocytes 15.5 % (21.0-51.0); %Monocytes 15.5 % (0.0-10.0); Hematocrit 26.3 % (42.0-52.0); Hemoglobin 8.4 g/dL (14.0-18.0); Mean Corpuscular HGB CONC 31.9 g/dL (32.0-36.0); Mean Corpuscular Volume 90.7 fl (78.0-98.0); Platelet Count 157 10x3/uL (130-400); RBC Distribution Width 14.8 % (11.5-14.5); White Blood Cell (WBC) Count 7.5 10x3/uL (4.8-10.8)
[2023-05-06 04:47] LABS: Anion Gap 11 mmol/L (10-20); BUN (Urea Nitrogen) 54 mg/dL (8.4-25.7); Calc. Creatinine Clearance 33 mL/min (70-130); Calcium 8.1 mg/dL (7.8-10.44); Carbon Dioxide 27 mmol/L (23-31); Chloride 107 mmol/L (98-107); Estimated GFR 22; Glucose 163 mg/dL (80-115); Magnesium 2.1 mg/dL (1.6-2.6); Potassium 3.9 mmol/L (3.5-5.1); Sodium 141 mmol/L (136-145)
[2023-05-06] MEDS: Mometasone 100 MCG/Formoterol 5 MCG 120 PUFF INHALER INH SCH ×2 (07:41→18:38)
[2023-05-06] MEDS: Folic Acid 1 MG TAB PO SCH (08:51)
[2023-05-06] MEDS: Sertraline 25 MG TAB PO SCH (08:51)
[2023-05-06] MEDS: Docusate 100 MG CAP PO SCH ×2 (08:51→20:12)
[2023-05-06] MEDS: Minoxidil 2.5 MG TAB PO SCH (08:51)
[2023-05-06] MEDS: Doxycycline 100 MG CAP PO SCH ×2 (08:51→20:12)
[2023-05-06] MEDS: Baclofen 10 MG TAB PO SCH ×2 (08:51→20:11)
[2023-05-06] MEDS: Aspirin Chewable 81 MG TAB PO SCH (08:52)
[2023-05-06] MEDS: Doxazosin 2 MG TAB PO SCH (08:52)
[2023-05-06] MEDS: Famotidine 20 MG TAB PO SCH (08:52)
[2023-05-06] MEDS: Cyanocobalamin (Vitamin B-12) 1,000 MCG TAB PO SCH (08:52)
[2023-05-06] MEDS: Sevelamer Carbonate 800 MG TAB PO SCH ×3 (08:52→18:33)
[2023-05-06] MEDS: hydrALAZINE 25 MG TAB PO SCH ×3 (08:52→20:11)
[2023-05-06] MEDS: Insulin Glargine 30 UNITS/0.3 ML VIAL SC SCH (08:53)
[2023-05-06] MEDS: NIFEdipine XL 60 MG TAB PO SCH (08:53)
[2023-05-06] MEDS: Heparin 5,000 UNITS/ML VIAL SC SCH ×3 (08:53→20:12)
[2023-05-06] MEDS: Mupirocin 2% Ointment 22 GM Tube TOP SCH ×3 (08:54→20:13)
[2023-05-06] MEDS: Polyethylene Glycol 3350 17 GM Packet PO SCH (08:56)
[2023-05-06 16:02] LABS: Body Surface Area 2.1
[2023-05-06 16:04] LABS: Creatinine, Urine 83.04 mg/dL (63-166)
[2023-05-06] MEDS: Melatonin 3 MG TAB PO SCH (20:10)
[2023-05-06] MEDS: Atorvastatin Calcium 20 MG TAB PO SCH (20:11)
[2023-05-07 04:58] LABS: #Eosinphils 0.9 thou/uL (0.0-0.7); #Neutrophils 4.8 thou/uL (1.40-6.50); %Basophils 0.3 % (0.0-1.0); %Eosinophils 11.2 % (0.0-10.0); %Lymphocytes 14.5 % (21.0-51.0); %Monocytes 12.2 % (0.0-10.0); %Neutrophils 61.3 % (42.0-75.0); Hematocrit 26.2 % (42.0-52.0); Hemoglobin 8.6 g/dL (14.0-18.0); Mean Corpuscular HGB CONC 32.8 g/dL (32.0-36.0); Mean Corpuscular Hemoglobin 29.5 pg (27.0-31.0); Mean Corpuscular Volume 89.7 fl (78.0-98.0); Mean Platelet Volume 11.5 fL (7.4-10.4); Platelet Count 193 10x3/uL (130-400); RBC Distribution Width 14.7 % (11.5-14.5); Red Blood Cell (RBC) Count 2.92 mill/uL (4.70-6.10); White Blood Cell (WBC) Count 7.8 10x3/uL (4.8-10.8)
[2023-05-07 05:07] LABS: Anion Gap 13 mmol/L (10-20); BUN (Urea Nitrogen) 61 mg/dL (8.4-25.7); Calc. Creatinine Clearance 35 mL/min (70-130); Carbon Dioxide 23 mmol/L (23-31); Chloride 105 mmol/L (98-107); Estimated GFR 24; Glucose 117 mg/dL (80-115); Phosphorus 2.6 mg/dL (2.3-4.7); Potassium 3.7 mmol/L (3.5-5.1); Sodium 137 mmol/L (136-145)
[2023-05-07] MEDS: Mometasone 100 MCG/Formoterol 5 MCG 120 PUFF INHALER INH SCH ×2 (07:24→19:06)
[2023-05-07] MEDS: hydrALAZINE 25 MG TAB PO SCH ×3 (09:10→21:30)
[2023-05-07] MEDS: Aspirin Chewable 81 MG TAB PO SCH (09:11)
[2023-05-07] MEDS: Folic Acid 1 MG TAB PO SCH (09:11)
[2023-05-07] MEDS: Cyanocobalamin (Vitamin B-12) 1,000 MCG TAB PO SCH (09:11)
[2023-05-07] MEDS: Doxazosin 2 MG TAB PO SCH (09:11)
[2023-05-07] MEDS: NIFEdipine XL 60 MG TAB PO SCH (09:12)
[2023-05-07] MEDS: Sevelamer Carbonate 800 MG TAB PO SCH ×3 (09:12→17:56)
[2023-05-07] MEDS: Famotidine 20 MG TAB PO SCH (09:12)
[2023-05-07] MEDS: Docusate 100 MG CAP PO SCH ×2 (09:13→21:30)
[2023-05-07] MEDS: Sertraline 25 MG TAB PO SCH (09:13)
[2023-05-07] MEDS: Doxycycline 100 MG CAP PO SCH ×2 (09:13→21:30)
[2023-05-07] MEDS: Minoxidil 2.5 MG TAB PO SCH (09:13)
[2023-05-07] MEDS: Baclofen 10 MG TAB PO SCH ×2 (09:13→21:30)
[2023-05-07] MEDS: Polyethylene Glycol 3350 17 GM Packet PO SCH ×2 (09:14→13:57)
[2023-05-07] MEDS: Heparin 5,000 UNITS/ML VIAL SC SCH ×3 (09:19→21:30)
[2023-05-07] MEDS: Insulin Glargine 30 UNITS/0.3 ML VIAL SC SCH (09:19)
[2023-05-07] MEDS: Fluticasone Propionate Nasal Spray 16 gm Bottle NASAL SCH (09:25)
[2023-05-07] MEDS: Mupirocin 2% Ointment 22 GM Tube TOP SCH ×3 (09:26→21:30)
[2023-05-07] MEDS: Epoetin (ESRD) 10,000 UNITS/ML VIAL SC SCH (17:55)
[2023-05-07] MEDS: Atorvastatin Calcium 20 MG TAB PO SCH (21:30)
[2023-05-07] MEDS: Melatonin 3 MG TAB PO SCH (21:30)
[2023-05-08 05:02] LABS: #Eosinphils 0.5 thou/uL (0.0-0.7); #Neutrophils 4.5 thou/uL (1.40-6.50); %Basophils 0.3 % (0.0-1.0); %Eosinophils 6.6 % (0.0-10.0); %Lymphocytes 18.7 % (21.0-51.0); %Neutrophils 60.9 % (42.0-75.0); Hematocrit 25.5 % (42.0-52.0); Hemoglobin 8.3 g/dL (14.0-18.0); Mean Corpuscular HGB CONC 32.5 g/dL (32.0-36.0); Mean Corpuscular Hemoglobin 28.6 pg (27.0-31.0); Mean Corpuscular Volume 87.9 fl (78.0-98.0); Mean Platelet Volume 11.1 fL (7.4-10.4); Platelet Count 177 10x3/uL (130-400); RBC Distribution Width 14.6 % (11.5-14.5); White Blood Cell (WBC) Count 7.4 10x3/uL (4.8-10.8)
[2023-05-08 05:27] LABS: Phosphorus 1.9 mg/dL (2.3-4.7)
[2023-05-08 05:28] LABS: Anion Gap 12 mmol/L (10-20); BUN (Urea Nitrogen) 34 mg/dL (8.4-25.7); Calc. Creatinine Clearance 45 mL/min (70-130); Carbon Dioxide 26 mmol/L (23-31); Chloride 106 mmol/L (98-107); Estimated GFR 33; Glucose 108 mg/dL (80-115); Potassium 3.5 mmol/L (3.5-5.1); Sodium 140 mmol/L (136-145)
[2023-05-08] MEDS: Mometasone 100 MCG/Formoterol 5 MCG 120 PUFF INHALER INH SCH ×2 (07:45→18:39)
[2023-05-08] MEDS: Insulin Glargine 30 UNITS/0.3 ML VIAL SC SCH (10:19)
[2023-05-08] MEDS: Minoxidil 2.5 MG TAB PO SCH (10:20)
[2023-05-08] MEDS: Cyanocobalamin (Vitamin B-12) 1,000 MCG TAB PO SCH (10:20)
[2023-05-08] MEDS: NIFEdipine XL 60 MG TAB PO SCH (10:20)
[2023-05-08] MEDS: Docusate 100 MG CAP PO SCH ×2 (10:20→20:24)
[2023-05-08] MEDS: Doxycycline 100 MG CAP PO SCH ×2 (10:20→20:24)
[2023-05-08] MEDS: hydrALAZINE 25 MG TAB PO SCH ×3 (10:21→20:24)
[2023-05-08] MEDS: Famotidine 20 MG TAB PO SCH (10:21)
[2023-05-08] MEDS: Aspirin Chewable 81 MG TAB PO SCH (10:21)
[2023-05-08] MEDS: Doxazosin 2 MG TAB PO SCH (10:21)
[2023-05-08] MEDS: Baclofen 10 MG TAB PO SCH ×2 (10:21→20:24)
[2023-05-08] MEDS: Sertraline 25 MG TAB PO SCH (10:21)
[2023-05-08] MEDS: Sevelamer Carbonate 800 MG TAB PO SCH ×2 (10:21→12:07)
[2023-05-08] MEDS: Heparin 5,000 UNITS/ML VIAL SC SCH ×3 (10:21→20:24)
[2023-05-08] MEDS: Polyethylene Glycol 3350 17 GM Packet PO SCH (10:22)
[2023-05-08] MEDS: Folic Acid 1 MG TAB PO SCH (10:22)
[2023-05-08] MEDS: Fluticasone Propionate Nasal Spray 16 gm Bottle NASAL SCH (10:40)
[2023-05-08] MEDS: Mupirocin 2% Ointment 22 GM Tube TOP SCH ×3 (10:40→20:34)
[2023-05-08] MEDS: Atorvastatin Calcium 20 MG TAB PO SCH (20:24)
[2023-05-08] MEDS: Melatonin 3 MG TAB PO SCH (20:25)
[2023-05-09 05:00] LABS: Anion Gap 13 mmol/L (10-20); BUN (Urea Nitrogen) 37 mg/dL (8.4-25.7); BUN/Creatinine Ratio 14.62; Calc. Creatinine Clearance 40 mL/min (70-130); Calcium 8.1 mg/dL (7.8-10.44); Carbon Dioxide 24 mmol/L (23-31); Chloride 105 mmol/L (98-107); Estimated GFR 27; Glucose 91 mg/dL (80-115); Phosphorus 2.2 mg/dL (2.3-4.7); Potassium 3.4 mmol/L (3.5-5.1); Sodium 139 mmol/L (136-145)
[2023-05-09] MEDS: Mometasone 100 MCG/Formoterol 5 MCG 120 PUFF INHALER INH SCH ×2 (07:56→19:17)
[2023-05-09] MEDS ORDERED: Activase 2 MG VIAL CATH SCH (08:45)
[2023-05-09] MEDS: Doxycycline 100 MG CAP PO SCH ×3 (11:28→21:16)
[2023-05-09] MEDS: Docusate 100 MG CAP PO SCH ×2 (11:28→21:16)
[2023-05-09] MEDS: Baclofen 10 MG TAB PO SCH ×3 (11:28→21:17)
[2023-05-09] MEDS: Heparin 5,000 UNITS/ML VIAL SC SCH ×3 (11:33→21:16)
[2023-05-09] MEDS: hydrALAZINE 25 MG TAB PO SCH ×3 (11:33→21:16)
[2023-05-09] MEDS: NIFEdipine XL 60 MG TAB PO SCH (12:01)
[2023-05-09] MEDS: guaiFENesin 200 MG TAB PO PRN (12:05)
[2023-05-09] MEDS: Aspirin Chewable 81 MG TAB PO SCH (12:06)
[2023-05-09] MEDS: Folic Acid 1 MG TAB PO SCH (12:07)
[2023-05-09] MEDS: Losartan 25 MG TAB PO SCH (12:07)
[2023-05-09] MEDS: Famotidine 20 MG TAB PO SCH (12:07)
[2023-05-09] MEDS: Sertraline 100 MG TAB PO SCH (12:08)
[2023-05-09] MEDS: Doxazosin 2 MG TAB PO SCH (12:09)
[2023-05-09] MEDS: Cyanocobalamin (Vitamin B-12) 1,000 MCG TAB PO SCH (12:09)
[2023-05-09] MEDS: Minoxidil 2.5 MG TAB PO SCH (12:10)
[2023-05-09] MEDS: Mupirocin 2% Ointment 22 GM Tube TOP SCH ×3 (12:14→21:17)
[2023-05-09] MEDS: Fluticasone Propionate Nasal Spray 16 gm Bottle NASAL SCH (12:14)
[2023-05-09] MEDS: Polyethylene Glycol 3350 17 GM Packet PO SCH (12:14)
[2023-05-09] MEDS: Insulin Glargine 30 UNITS/0.3 ML VIAL SC SCH (12:14)
[2023-05-09] MEDS: Melatonin 3 MG TAB PO SCH (21:17)
[2023-05-09] MEDS: Atorvastatin Calcium 20 MG TAB PO SCH (21:17)
[2023-05-10] MEDS: Mometasone 100 MCG/Formoterol 5 MCG 120 PUFF INHALER INH SCH ×2 (07:01→18:42)
[2023-05-10] MEDS ORDERED: cloNIDine 0.3mg/24 Hour PATCH TD SCH (09:00)
[2023-05-10] MEDS ORDERED: Heparin 10,000 UNITS/ 10 ML VIAL ONE (09:04)
[2023-05-10] MEDS: NIFEdipine XL 60 MG TAB PO SCH (14:32)
[2023-05-10] MEDS: Polyethylene Glycol 3350 17 GM Packet PO SCH (14:32)
[2023-05-10] MEDS: Folic Acid 1 MG TAB PO SCH (14:34)
[2023-05-10] MEDS: Sertraline 100 MG TAB PO SCH (14:34)
[2023-05-10] MEDS: Minoxidil 2.5 MG TAB PO SCH (14:34)
[2023-05-10] MEDS: Baclofen 10 MG TAB PO SCH ×2 (14:35→20:07)
[2023-05-10] MEDS: Losartan 25 MG TAB PO SCH (14:36)
[2023-05-10] MEDS: Cyanocobalamin (Vitamin B-12) 1,000 MCG TAB PO SCH (14:36)
[2023-05-10] MEDS: Famotidine 20 MG TAB PO SCH (14:36)
[2023-05-10] MEDS: Aspirin Chewable 81 MG TAB PO SCH (14:36)
[2023-05-10] MEDS: Doxycycline 100 MG CAP PO SCH ×2 (14:37→20:07)
[2023-05-10] MEDS: Heparin 5,000 UNITS/ML VIAL SC SCH ×3 (14:37→20:08)
[2023-05-10] MEDS: hydrALAZINE 25 MG TAB PO SCH ×3 (14:37→20:07)
[2023-05-10] MEDS: Doxazosin 2 MG TAB PO SCH (14:37)
[2023-05-10] MEDS: Fluticasone Propionate Nasal Spray 16 gm Bottle NASAL SCH (14:38)
[2023-05-10] MEDS: Mupirocin 2% Ointment 22 GM Tube TOP SCH ×3 (14:39→20:08)
[2023-05-10] MEDS: guaiFENesin 200 MG TAB PO PRN (14:44)
[2023-05-10] MEDS: Docusate 100 MG CAP PO SCH ×2 (14:56→20:08)
[2023-05-10] MEDS: Insulin Glargine 30 UNITS/0.3 ML VIAL SC SCH (14:56)
[2023-05-10] MEDS: Atorvastatin Calcium 20 MG TAB PO SCH (20:07)
[2023-05-10] MEDS: Melatonin 3 MG TAB PO SCH (20:08)
[2023-05-11 04:27] LABS: Hematocrit 26.2 % (42.0-52.0); Hemoglobin 8.4 g/dL (14.0-18.0); Mean Corpuscular HGB CONC 32.1 g/dL (32.0-36.0); Mean Corpuscular Volume 90.3 fl (78.0-98.0); Mean Platelet Volume 10.9 fL (7.4-10.4); Platelet Count 206 10x3/uL (130-400); RBC Distribution Width 15.2 % (11.5-14.5); White Blood Cell (WBC) Count 12.9 10x3/uL (4.8-10.8)
[2023-05-11 04:57] LABS: Albumin 2.8 g/dL (3.4-4.8); Anion Gap 13 mmol/L (10-20); BUN (Urea Nitrogen) 31 mg/dL (8.4-25.7); BUN/Creatinine Ratio 13.84; Calc. Creatinine Clearance 46 mL/min (70-130); Calcium 8.1 mg/dL (7.8-10.44); Carbon Dioxide 26 mmol/L (23-31); Chloride 103 mmol/L (98-107); Estimated GFR 32; Glucose 137 mg/dL (80-115); Phosphorus 2.8 mg/dL (2.3-4.7); Potassium 3.9 mmol/L (3.5-5.1); Sodium 138 mmol/L (136-145)
[2023-05-11] MEDS: Mometasone 100 MCG/Formoterol 5 MCG 120 PUFF INHALER INH SCH ×2 (07:18→18:47)
[2023-05-11] MEDS: Cyanocobalamin (Vitamin B-12) 1,000 MCG TAB PO SCH (09:32)
[2023-05-11] MEDS: hydrALAZINE 25 MG TAB PO SCH ×3 (09:32→20:55)
[2023-05-11] MEDS: Doxycycline 100 MG CAP PO SCH ×2 (09:32→20:54)
[2023-05-11] MEDS: NIFEdipine XL 60 MG TAB PO SCH (09:32)
[2023-05-11] MEDS: Minoxidil 2.5 MG TAB PO SCH (09:33)
[2023-05-11] MEDS: Docusate 100 MG CAP PO SCH ×2 (09:33→20:54)
[2023-05-11] MEDS: Baclofen 10 MG TAB PO SCH ×2 (09:33→20:54)
[2023-05-11] MEDS: Folic Acid 1 MG TAB PO SCH (09:33)
[2023-05-11] MEDS: Aspirin Chewable 81 MG TAB PO SCH (09:33)
[2023-05-11] MEDS: Doxazosin 2 MG TAB PO SCH (09:34)
[2023-05-11] MEDS: Famotidine 20 MG TAB PO SCH (09:34)
[2023-05-11] MEDS: Insulin Glargine 30 UNITS/0.3 ML VIAL SC SCH (09:34)
[2023-05-11] MEDS: Heparin 5,000 UNITS/ML VIAL SC SCH ×3 (09:34→20:55)
[2023-05-11] MEDS: Sertraline 100 MG TAB PO SCH (09:34)
[2023-05-11] MEDS: Losartan 25 MG TAB PO SCH (09:34)
[2023-05-11] MEDS: Fluticasone Propionate Nasal Spray 16 gm Bottle NASAL SCH (09:36)
[2023-05-11] MEDS: Polyethylene Glycol 3350 17 GM Packet PO SCH (10:16)
[2023-05-11] MEDS: Mupirocin 2% Ointment 22 GM Tube TOP SCH ×2 (11:07→18:11)
[2023-05-11] MEDS: Atorvastatin Calcium 40 MG TAB PO SCH (20:54)
[2023-05-11] MEDS: Melatonin 3 MG TAB PO SCH (20:54)
[2023-05-12] MEDS: Mupirocin 2% Ointment 22 GM Tube TOP SCH ×4 (01:05→22:25)
[2023-05-12 04:47] LABS: #Eosinphils 0.6 thou/uL (0.0-0.7); #Neutrophils 6.4 thou/uL (1.40-6.50); %Basophils 0.4 % (0.0-1.0); %Eosinophils 5.8 % (0.0-10.0); %Lymphocytes 17.9 % (21.0-51.0); %Monocytes 10.3 % (0.0-10.0); %Neutrophils 65.2 % (42.0-75.0); Hematocrit 24.8 % (42.0-52.0); Hemoglobin 7.9 g/dL (14.0-18.0); Mean Corpuscular HGB CONC 31.9 g/dL (32.0-36.0); Mean Corpuscular Hemoglobin 28.8 pg (27.0-31.0); Mean Corpuscular Volume 90.5 fl (78.0-98.0); Platelet Count 228 10x3/uL (130-400); RBC Distribution Width 15.1 % (11.5-14.5); Red Blood Cell (RBC) Count 2.74 mill/uL (4.70-6.10); White Blood Cell (WBC) Count 9.8 10x3/uL (4.8-10.8)
[2023-05-12] MEDS: Mometasone 100 MCG/Formoterol 5 MCG 120 PUFF INHALER INH SCH ×2 (06:49→18:47)
[2023-05-12] MEDS ORDERED: Heparin 10,000 UNITS/ 10 ML VIAL ONE (11:29)
[2023-05-12] MEDS: hydrALAZINE 25 MG TAB PO SCH ×3 (11:45→22:24)
[2023-05-12] MEDS: Heparin 5,000 UNITS/ML VIAL SC SCH ×3 (11:45→21:01)
[2023-05-12 15:14] LABS: Syphilis Antibody Nonreactive (Nonreactive); Syphilis Antibody Index 0.09 S/CO (<1.00 Non-Reactive)
[2023-05-12] MEDS: Doxazosin 2 MG TAB PO SCH (15:41)
[2023-05-12] MEDS: Minoxidil 2.5 MG TAB PO SCH (15:41)
[2023-05-12] MEDS: Sertraline 100 MG TAB PO SCH (15:42)
[2023-05-12] MEDS: Cyanocobalamin (Vitamin B-12) 1,000 MCG TAB PO SCH (15:42)
[2023-05-12] MEDS: Famotidine 20 MG TAB PO SCH (15:43)
[2023-05-12] MEDS: NIFEdipine XL 60 MG TAB PO SCH (15:43)
[2023-05-12] MEDS: Doxycycline 100 MG CAP PO SCH ×2 (15:43→21:01)
[2023-05-12] MEDS: Aspirin Chewable 81 MG TAB PO SCH (15:43)
[2023-05-12] MEDS: Folic Acid 1 MG TAB PO SCH (15:43)
[2023-05-12] MEDS: Baclofen 10 MG TAB PO SCH ×2 (15:44→21:01)
[2023-05-12] MEDS: Insulin Glargine 30 UNITS/0.3 ML VIAL SC SCH (15:44)
[2023-05-12] MEDS: Docusate 100 MG CAP PO SCH ×2 (15:44→21:01)
[2023-05-12] MEDS: Losartan 25 MG TAB PO SCH (15:44)
[2023-05-12] MEDS: Fluticasone Propionate Nasal Spray 16 gm Bottle NASAL SCH (15:44)
[2023-05-12 20:24] LABS: Chlam.trachomatis by PCR,Urine Not Detected (NotDetected); GC N.gonorrhoeae PCR,UrineVOID Not Detected (NotDetected)
[2023-05-12] MEDS: Atorvastatin Calcium 40 MG TAB PO SCH (21:01)
[2023-05-12] MEDS: Melatonin 3 MG TAB PO SCH (21:01)
[2023-05-13 04:20] LABS: Hematocrit 24.9 % (42.0-52.0)
[2023-05-13] MEDS: Mometasone 100 MCG/Formoterol 5 MCG 120 PUFF INHALER INH SCH ×2 (08:09→18:24)
[2023-05-13] MEDS: Famotidine 20 MG TAB PO SCH (09:34)
[2023-05-13] MEDS: Cyanocobalamin (Vitamin B-12) 1,000 MCG TAB PO SCH (09:34)
[2023-05-13] MEDS: Doxazosin 2 MG TAB PO SCH (09:34)
[2023-05-13] MEDS: Baclofen 10 MG TAB PO SCH ×2 (09:34→20:48)
[2023-05-13] MEDS: hydrALAZINE 25 MG TAB PO SCH ×3 (09:34→20:47)
[2023-05-13] MEDS: Sertraline 100 MG TAB PO SCH (09:35)
[2023-05-13] MEDS: NIFEdipine XL 60 MG TAB PO SCH (09:35)
[2023-05-13] MEDS: Losartan 25 MG TAB PO SCH (09:36)
[2023-05-13] MEDS: Folic Acid 1 MG TAB PO SCH (09:36)
[2023-05-13] MEDS: Minoxidil 2.5 MG TAB PO SCH (09:36)
[2023-05-13] MEDS: Doxycycline 100 MG CAP PO SCH ×2 (09:36→20:48)
[2023-05-13] MEDS: Docusate 100 MG CAP PO SCH ×2 (09:36→20:48)
[2023-05-13] MEDS: Aspirin Chewable 81 MG TAB PO SCH (09:36)
[2023-05-13] MEDS: Insulin Glargine 30 UNITS/0.3 ML VIAL SC SCH (09:40)
[2023-05-13] MEDS: Heparin 5,000 UNITS/ML VIAL SC SCH ×3 (09:40→20:48)
[2023-05-13] MEDS: Mupirocin 2% Ointment 22 GM Tube TOP SCH ×3 (09:40→20:50)
[2023-05-13] MEDS: Fluticasone Propionate Nasal Spray 16 gm Bottle NASAL SCH (09:41)
[2023-05-13] MEDS: HumaLOG 300 UNITS/3 ML VIAL SC PRN (12:06)
[2023-05-13] MEDS: Atorvastatin Calcium 40 MG TAB PO SCH (20:48)
[2023-05-13] MEDS: Melatonin 3 MG TAB PO SCH (20:48)
[2023-05-14] MEDS: Mometasone 100 MCG/Formoterol 5 MCG 120 PUFF INHALER INH SCH ×2 (07:12→18:43)
[2023-05-14] MEDS ORDERED: Polyethylene Glycol 3350 17 GM Packet PO SCH (09:00)
[2023-05-14] MEDS ORDERED: Heparin 10,000 UNITS/ 10 ML VIAL ONE (09:12)
[2023-05-14] MEDS: Sertraline 100 MG TAB PO SCH (11:14)
[2023-05-14] MEDS: NIFEdipine XL 60 MG TAB PO SCH (11:14)
[2023-05-14] MEDS: Losartan 25 MG TAB PO SCH (11:15)
[2023-05-14] MEDS: Famotidine 20 MG TAB PO SCH (11:15)
[2023-05-14] MEDS: Minoxidil 2.5 MG TAB PO SCH (11:15)
[2023-05-14] MEDS: Aspirin Chewable 81 MG TAB PO SCH (11:15)
[2023-05-14] MEDS: hydrALAZINE 25 MG TAB PO SCH ×3 (11:16→21:41)
[2023-05-14] MEDS: Cyanocobalamin (Vitamin B-12) 1,000 MCG TAB PO SCH (11:16)
[2023-05-14] MEDS: Doxycycline 100 MG CAP PO SCH ×2 (11:17→21:40)
[2023-05-14] MEDS: Heparin 5,000 UNITS/ML VIAL SC SCH ×3 (11:17→21:41)
[2023-05-14] MEDS: Baclofen 10 MG TAB PO SCH ×2 (11:17→21:40)
[2023-05-14] MEDS: Folic Acid 1 MG TAB PO SCH (11:17)
[2023-05-14] MEDS: Doxazosin 2 MG TAB PO SCH (11:17)
[2023-05-14] MEDS: Insulin Glargine 30 UNITS/0.3 ML VIAL SC SCH (11:17)
[2023-05-14] MEDS: Mupirocin 2% Ointment 22 GM Tube TOP SCH ×3 (11:18→21:41)
[2023-05-14] MEDS: Fluticasone Propionate Nasal Spray 16 gm Bottle NASAL SCH (11:21)
[2023-05-14] MEDS: Docusate 100 MG CAP PO SCH ×2 (11:21→21:41)
[2023-05-14 14:39] VITALS: BMI 31.8
[2023-05-14] MEDS: Melatonin 3 MG TAB PO SCH (21:40)
[2023-05-14] MEDS: Atorvastatin Calcium 40 MG TAB PO SCH (21:40)
[2023-05-15 05:12] LABS: #Eosinphils 0.5 thou/uL (0.0-0.7); #Monocytes 0.8 thou/uL (0.11-0.59); #Neutrophils 4.2 thou/uL (1.40-6.50); %Basophils 0.5 % (0.0-1.0); %Eosinophils 6.5 % (0.0-10.0); %Monocytes 11.1 % (0.0-10.0); %Neutrophils 56.4 % (42.0-75.0); Hematocrit 26.3 % (42.0-52.0); Hemoglobin 8.3 g/dL (14.0-18.0); Mean Corpuscular HGB CONC 31.6 g/dL (32.0-36.0); Mean Corpuscular Hemoglobin 28.4 pg (27.0-31.0); Mean Corpuscular Volume 90.1 fl (78.0-98.0); Mean Platelet Volume 10.7 fL (7.4-10.4); Platelet Count 249 10x3/uL (130-400); RBC Distribution Width 14.6 % (11.5-14.5); Red Blood Cell (RBC) Count 2.92 mill/uL (4.70-6.10); White Blood Cell (WBC) Count 7.5 10x3/uL (4.8-10.8)
[2023-05-15 05:39] LABS: Anion Gap 12 mmol/L (10-20); BUN (Urea Nitrogen) 44 mg/dL (8.4-25.7); Calc. Creatinine Clearance 29 mL/min (70-130); Calcium 8.5 mg/dL (7.8-10.44); Carbon Dioxide 27 mmol/L (23-31); Chloride 103 mmol/L (98-107); Estimated GFR 18; Glucose 103 mg/dL (80-115); Sodium 138 mmol/L (136-145)
[2023-05-15] MEDS: Mometasone 100 MCG/Formoterol 5 MCG 120 PUFF INHALER INH SCH ×2 (07:57→19:10)
[2023-05-15] MEDS: Cyanocobalamin (Vitamin B-12) 1,000 MCG TAB PO SCH (08:41)
[2023-05-15] MEDS: Aspirin Chewable 81 MG TAB PO SCH (08:41)
[2023-05-15] MEDS: Baclofen 10 MG TAB PO SCH ×2 (08:41→13:24)
[2023-05-15] MEDS: Doxazosin 2 MG TAB PO SCH (08:41)
[2023-05-15] MEDS: Fluticasone Propionate Nasal Spray 16 gm Bottle NASAL SCH (08:42)
[2023-05-15] MEDS: Docusate 100 MG CAP PO SCH (08:42)
[2023-05-15] MEDS: Famotidine 20 MG TAB PO SCH (08:42)
[2023-05-15] MEDS: Folic Acid 1 MG TAB PO SCH (08:42)
[2023-05-15] MEDS: Heparin 5,000 UNITS/ML VIAL SC SCH ×2 (08:42→14:37)
[2023-05-15] MEDS: Minoxidil 2.5 MG TAB PO SCH (08:43)
[2023-05-15] MEDS: hydrALAZINE 25 MG TAB PO SCH ×2 (08:43→14:40)
[2023-05-15] MEDS: Losartan 25 MG TAB PO SCH (08:43)
[2023-05-15] MEDS: Sertraline 100 MG TAB PO SCH (08:44)
[2023-05-15] MEDS: NIFEdipine XL 60 MG TAB PO SCH (08:44)
[2023-05-15] MEDS ORDERED: Epoetin (ESRD) 10,000 UNITS/ML VIAL IVP SCH (09:00)
[2023-05-15] MEDS: Doxycycline 100 MG CAP PO SCH (13:24)
[2023-05-15] MEDS: Insulin Glargine 30 UNITS/0.3 ML VIAL SC SCH (13:24)
[2023-05-15 16:38] VITALS: BP 126/60; TEMP 98.4
[2023-05-16] MEDS ORDERED: Famotidine 20 MG TAB PO SCH (09:00)
== END 2023-05-15 19:42 | DRG 280 ==
LOC: ERS 13:12 → 2NO 15:47
PROVIDERS: ADMIT Family Medicine; ATTEND Family Medicine
PROC: 4A133R1 Monitoring of Arterial Saturation, Peripheral, Percutaneous Approach (ICD-10-PCS; 2023-04-29)
PROC: 30233N1 Transfusion of Nonautologous Red Blood Cells into Peripheral Vein, Percutaneous Approach (ICD-10-PCS; 2023-05-01)
PROC: 0JHD3XZ Insertion of Tunneled Vascular Access Device into Right Upper Arm Subcutaneous Tissue and Fascia, Percutaneous Approach (ICD-10-PCS; principal; 2023-05-02)
PROC: 02HV33Z Insertion of Infusion Device into Superior Vena Cava, Percutaneous Approach (ICD-10-PCS; 2023-05-02)
PROC: B5181ZA Fluoroscopy of Superior Vena Cava using Low Osmolar Contrast, Guidance (ICD-10-PCS; 2023-05-02)
PROC: B548ZZA Ultrasonography of Superior Vena Cava, Guidance (ICD-10-PCS; 2023-05-02)
PROC: 5A1D70Z Performance of Urinary Filtration, Intermittent, Less than 6 Hours Per Day (ICD-10-PCS; 2023-05-02)
DX: I13.2 Hypertensive heart and chronic kidney disease with heart failure and with stage 5 chronic kidney disease, or end stage renal disease (principal); I50.33 Acute on chronic diastolic (congestive) heart failure; I21.A1 Myocardial infarction type 2; J96.01 Acute respiratory failure with hypoxia; L89.153 Pressure ulcer of sacral region, stage 3; N18.6 End stage renal disease; G82.20 Paraplegia, unspecified; N39.0 Urinary tract infection, site not specified; N25.81 Secondary hyperparathyroidism of renal origin; N17.9 Acute kidney failure, unspecified; E11.22 Type 2 diabetes mellitus with diabetic chronic kidney disease; E78.5 Hyperlipidemia, unspecified; J44.9 Chronic obstructive pulmonary disease, unspecified; G47.33 Obstructive sleep apnea (adult) (pediatric); D63.1 Anemia in chronic kidney disease; Z74.09 Other reduced mobility; F17.290 Nicotine dependence, other tobacco product, uncomplicated; R53.81 Other malaise; R33.9 Retention of urine, unspecified; N48.5 Ulcer of penis; N13.9 Obstructive and reflux uropathy, unspecified; E78.00 Pure hypercholesterolemia, unspecified; E66.01 Morbid (severe) obesity due to excess calories; E88.81 Metabolic syndrome and other insulin resistance; B95.2 Enterococcus as the cause of diseases classified elsewhere; E88.09 Other disorders of plasma-protein metabolism, not elsewhere classified; Z79.82 Long term (current) use of aspirin; Z79.4 Long term (current) use of insulin; Z79.899 Other long term (current) drug therapy; Z98.890 Other specified postprocedural states; Z82.49 Family history of ischemic heart disease and other diseases of the circulatory system; Z99.2 Dependence on renal dialysis; Z20.822 Contact with and (suspected) exposure to COVID-19; Z68.22 Body mass index [BMI] 22.0-22.9, adult; F12.10 Cannabis abuse, uncomplicated; I49.3 Ventricular premature depolarization
CPT/HCPCS: 36415; 36416; 36430; 36600; 71045; 76770; 80048; 80069; 81001; 82043; 82553; 82575; 82728; 82805; 83036; 83540; 83550; 83735; 83880; 84100; 84145; 84484; 84540; 85014; 85018; 85025; 85027; 86140; 86580; 86704; 86780; 86850; 86900; 86901; 87040; 87070; 87077; 87086; 87186; 87205; 87491; 87591; 87661; 90935; 93005; 94640; 96374; 97139; C1752; G0257; J0171; J1644; J1815; J1940; J2001; J2405; J2704; J2930; J7620; P9016; Q4081

== ENCOUNTER 2023-10-31 08:09 | Inpatient (IN) | payer MEDICARE, OTHER ==
[2023-10-31 09:50] LABS: #Eosinphils 0.7 thou/uL (0.0-0.7); #Monocytes 0.9 thou/uL (0.11-0.59); #Neutrophils 6.2 thou/uL (1.40-6.50); %Basophils 0.4 % (0.0-1.0); %Eosinophils 7.1 % (0.0-10.0); %Lymphocytes 21.2 % (21.0-51.0); %Monocytes 8.7 % (0.0-10.0); %Neutrophils 62.1 % (42.0-75.0); Hematocrit 34.2 % (42.0-52.0); Hemoglobin 11.6 g/dL (14.0-18.0); Mean Corpuscular HGB CONC 33.9 g/dL (32.0-36.0); Mean Corpuscular Hemoglobin 31.6 pg (27.0-31.0); Mean Corpuscular Volume 93.2 fl (78.0-98.0); Mean Platelet Volume 10.1 fL (7.4-10.4); Platelet Count 238 10x3/uL (130-400); Red Blood Cell (RBC) Count 3.67 mill/uL (4.70-6.10); White Blood Cell (WBC) Count 9.9 10x3/uL (4.8-10.8)
[2023-10-31 10:12] LABS: ALT (SGPT) Less than 7 U/L (8-55); AST (SGOT) 15 U/L (5-34); Albumin 3.8 g/dL (3.4-4.8); Alkaline Phosphatase 73 U/L (40-110); Anion Gap 14 mmol/L (10-20); BUN (Urea Nitrogen) 117 mg/dL (8.4-25.7); Bilirubin, Total 0.6 mg/dL (0.2-1.2); Calc. Creatinine Clearance 0 mL/min (70-130); Calcium 9.2 mg/dL (7.8-10.44); Carbon Dioxide 23 mmol/L (23-31); Chloride 102 mmol/L (98-107); Estimated GFR 13; Globulin 3.9 g/dL (2.4-3.5); Glucose 138 mg/dL (80-115); Potassium 3.9 mmol/L (3.5-5.1); Protein, Total 7.7 g/dL (5.8-8.1); Sodium 135 mmol/L (136-145)
[2023-10-31] MEDS ORDERED: Sterile Water 10 ML VIAL IVP SCH (10:15)
[2023-10-31] MEDS ORDERED: Activase 2 MG VIAL CATH SCH ×2 (10:15→12:30)
[2023-10-31 11:06] LABS: HBSAg Index 0.31 S/CO (0-0.99); Hep B Surf Ag Non-Reactive S/CO (NonReactive)
[2023-10-31 11:07] LABS: HBSAB Concentration 284.52 mIU/mL; Hep B Surf AB Reactive (NonReactive)
[2023-10-31] MEDS ORDERED: Sterile Water 10 ML VIAL FS SCH (12:30)
[2023-10-31 19:43] LABS: Magnesium 2.7 mg/dL (1.6-2.6); Phosphorus 5.4 mg/dL (2.3-4.7)
[2023-10-31] MEDS ORDERED: HumaLOG 300 UNITS/3 ML VIAL SC PRN (20:00)
[2023-10-31] MEDS ORDERED: Glucagon 1 MG/ML KIT IM PRN (20:00)
[2023-10-31] MEDS ORDERED: Dextrose 50% Abboject 50 ML SYRINGE SLOW IVP PRN (20:00)
[2023-10-31] MEDS ORDERED: Dextrose 5% in Water 1,000 ML IV PRN (20:00)
[2023-10-31] MEDS ORDERED: cloNIDine 0.1 MG TAB PO PRN (20:45)
[2023-10-31] MEDS ORDERED: Calcium Carbonate 500 MG ChewTAB PO PRN (20:45)
[2023-10-31] MEDS: Melatonin 3 MG TAB PO SCH (21:00)
[2023-10-31] MEDS: Baclofen 10 MG TAB PO SCH (21:32)
[2023-10-31] MEDS: NIFEdipine XL 60 MG ER.TAB PO SCH (21:56)
[2023-10-31] MEDS: Sevelamer Carbonate 800 MG TAB PO SCH (22:36)
[2023-11-01] MEDS: Ipratropium/Albuterol 3 ML NEB NEB SCH ×4 (00:08→23:10)
[2023-11-01 07:08] LABS: #Basophils 0.1 thou/uL (0.0-0.2); #Eosinphils 0.7 thou/uL (0.0-0.7); #Monocytes 0.9 thou/uL (0.11-0.59); #Neutrophils 6.5 thou/uL (1.40-6.50); %Basophils 0.6 % (0.0-1.0); %Eosinophils 6.6 % (0.0-10.0); %Lymphocytes 18.6 % (21.0-51.0); %Monocytes 8.5 % (0.0-10.0); %Neutrophils 65.1 % (42.0-75.0); Hematocrit 32.4 % (42.0-52.0); Hemoglobin 10.6 g/dL (14.0-18.0); Mean Corpuscular HGB CONC 32.7 g/dL (32.0-36.0); Mean Corpuscular Hemoglobin 30.5 pg (27.0-31.0); Mean Corpuscular Volume 93.1 fl (78.0-98.0); Mean Platelet Volume 10.5 fL (7.4-10.4); Platelet Count 234 10x3/uL (130-400); RBC Distribution Width 14.2 % (11.5-14.5); Red Blood Cell (RBC) Count 3.48 mill/uL (4.70-6.10)
[2023-11-01] MEDS: Mometasone 100 MCG/Formoterol 5 MCG 120 PUFF INHALER INH SCH ×2 (07:13→23:10)
[2023-11-01 07:29] LABS: ALT (SGPT) 7 U/L (8-55); AST (SGOT) 14 U/L (5-34); Albumin 3.3 g/dL (3.4-4.8); Alkaline Phosphatase 71 U/L (40-110); Anion Gap 14 mmol/L (10-20); BUN (Urea Nitrogen) 125 mg/dL (8.4-25.7); Bilirubin, Total 0.4 mg/dL (0.2-1.2); Calc. Creatinine Clearance 21 mL/min (70-130); Calcium 8.4 mg/dL (7.8-10.44); Carbon Dioxide 21 mmol/L (23-31); Chloride 105 mmol/L (98-107); Estimated GFR 14; Globulin 3.6 g/dL (2.4-3.5); Glucose 127 mg/dL (80-115); Magnesium 2.6 mg/dL (1.6-2.6); Potassium 3.9 mmol/L (3.5-5.1); Protein, Total 6.9 g/dL (5.8-8.1); Sodium 136 mmol/L (136-145)
[2023-11-01 07:30] LABS: Phosphorus 5.2 mg/dL (2.3-4.7)
[2023-11-01] MEDS ORDERED: Ferrous Fumarate 324 MG TAB PO SCH ×2 (09:00→11:30)
[2023-11-01] MEDS ORDERED: Heparin 10,000 UNITS/ 10 ML VIAL ONE ×2 (09:01→16:35)
[2023-11-01 12:00] VITALS: BMI 30.8
[2023-11-01] MEDS: Sevelamer Carbonate 800 MG TAB PO SCH ×3 (13:14→18:38)
[2023-11-01] MEDS: Famotidine 20 MG TAB PO SCH ×2 (13:14→13:18)
[2023-11-01] MEDS: Polyethylene Glycol 3350 17 GM Packet PO SCH (13:14)
[2023-11-01] MEDS: Ferrous Fumarate 324 MG TAB PO SCH ×2 (13:15→13:16)
[2023-11-01] MEDS: Aspirin Chewable 81 MG TAB PO SCH (13:15)
[2023-11-01] MEDS: Folic Acid 1 MG TAB PO SCH (13:15)
[2023-11-01] MEDS: Sertraline 100 MG TAB PO SCH (13:15)
[2023-11-01] MEDS: Tamsulosin HCl 0.4 MG CAP PO SCH (13:15)
[2023-11-01] MEDS: Baclofen 10 MG TAB PO SCH ×3 (13:23→20:31)
[2023-11-01] MEDS: NIFEdipine XL 60 MG ER.TAB PO SCH ×2 (13:25→20:18)
[2023-11-01] MEDS: Cholecalciferol 1,000 UNITS (25 MCG) TAB PO SCH ×2 (13:30→20:30)
[2023-11-01] MEDS ORDERED: Lidocaine 2% PF 5 ML VIAL ONE (16:35)
[2023-11-01] MEDS ORDERED: EPINEPHrine 1 MG/ML VIAL ONE (16:35)
[2023-11-01] MEDS ORDERED: Bupivacaine PF 0.5% 30 ML VIAL ONE (16:36)
[2023-11-01] MEDS ORDERED: Sodium Chloride 0.9% 100 ML ONE (16:57)
[2023-11-01] MEDS ORDERED: CEFAZOLIN 2 GM VIAL ONE (16:57)
[2023-11-01] MEDS ORDERED: Glycopyrrolate 0.2 MG/ML 5 ML SYRINGE ONE (16:59)
[2023-11-01] MEDS ORDERED: PROPOFOL 20 ML ONE ×2 (16:59→17:04)
[2023-11-01] MEDS ORDERED: Midazolam HCl 2 mg/2 ml Vial ONE (16:59)
[2023-11-01] MEDS ORDERED: fentaNYL 50 mcg/mL 1 mL Vial ONE (16:59)
[2023-11-01] MEDS ORDERED: ePHEDrine Sulfate 50 MG/10 ML VIAL ONE (17:03)
[2023-11-01] MEDS ORDERED: PHENYLEPHRINE-NS 100 MCG/ML 10 ML SYRINGE ONE (17:38)
[2023-11-01] MEDS ORDERED: Promethazine HCl 25 MG/ML VIAL IM PRN (18:20)
[2023-11-01] MEDS ORDERED: Ondansetron HCl/PF 4 MG/2 ML Vial IVP PRN (18:20)
[2023-11-01] MEDS: Melatonin 3 MG TAB PO SCH (20:31)
[2023-11-01] MEDS: Acetaminophen 325 MG TAB PO PRN (20:44)
[2023-11-02] MEDS: traMADol HCl 50 MG TAB PO PRN (02:22)
[2023-11-02 04:56] LABS: #Basophils 0.1 thou/uL (0.0-0.2); #Eosinphils 0.5 thou/uL (0.0-0.7); #Monocytes 0.8 thou/uL (0.11-0.59); #Neutrophils 5.9 thou/uL (1.40-6.50); %Basophils 0.7 % (0.0-1.0); %Eosinophils 5.4 % (0.0-10.0); %Lymphocytes 20.9 % (21.0-51.0); %Monocytes 8.5 % (0.0-10.0); %Neutrophils 64.1 % (42.0-75.0); Hematocrit 34.4 % (42.0-52.0); Hemoglobin 11.6 g/dL (14.0-18.0); Mean Corpuscular HGB CONC 33.7 g/dL (32.0-36.0); Mean Corpuscular Hemoglobin 31.2 pg (27.0-31.0); Mean Corpuscular Volume 92.5 fl (78.0-98.0); Mean Platelet Volume 10.6 fL (7.4-10.4); Platelet Count 253 10x3/uL (130-400); RBC Distribution Width 14.3 % (11.5-14.5); Red Blood Cell (RBC) Count 3.72 mill/uL (4.70-6.10); White Blood Cell (WBC) Count 9.2 10x3/uL (4.8-10.8)
[2023-11-02 05:28] LABS: ALT (SGPT) Less than 7 U/L (8-55); AST (SGOT) 17 U/L (5-34); Albumin 3.9 g/dL (3.4-4.8); Alkaline Phosphatase 85 U/L (40-110); Anion Gap 16 mmol/L (10-20); BUN (Urea Nitrogen) 50 mg/dL (8.4-25.7); Bilirubin, Total 0.6 mg/dL (0.2-1.2); Calc. Creatinine Clearance 37 mL/min (70-130); Calcium 9.1 mg/dL (7.8-10.44); Carbon Dioxide 25 mmol/L (23-31); Chloride 100 mmol/L (98-107); Estimated GFR 27; Glucose 91 mg/dL (80-115); Magnesium 2.3 mg/dL (1.6-2.6); Potassium 3.5 mmol/L (3.5-5.1); Protein, Total 7.9 g/dL (5.8-8.1); Sodium 137 mmol/L (136-145)
[2023-11-02 05:34] LABS: Phosphorus 2.9 mg/dL (2.3-4.7)
[2023-11-02] MEDS: Mometasone 100 MCG/Formoterol 5 MCG 120 PUFF INHALER INH SCH ×2 (07:17→19:11)
[2023-11-02] MEDS: Ipratropium/Albuterol 3 ML NEB NEB SCH ×3 (07:20→19:11)
[2023-11-02] MEDS: Polyethylene Glycol 3350 17 GM Packet PO SCH (08:45)
[2023-11-02] MEDS: Sertraline 100 MG TAB PO SCH (08:45)
[2023-11-02] MEDS: Acetaminophen 325 MG TAB PO PRN ×2 (08:45→16:22)
[2023-11-02] MEDS: Baclofen 10 MG TAB PO SCH ×3 (08:45→21:24)
[2023-11-02] MEDS: Zinc Sulfate 220 MG CAP PO SCH (08:45)
[2023-11-02] MEDS: Folic Acid 1 MG TAB PO SCH (08:46)
[2023-11-02] MEDS: Aspirin Chewable 81 MG TAB PO SCH (08:46)
[2023-11-02] MEDS: Tamsulosin HCl 0.4 MG CAP PO SCH (08:46)
[2023-11-02] MEDS: Cyanocobalamin (Vitamin B-12) 1,000 MCG TAB PO SCH (08:46)
[2023-11-02] MEDS: Famotidine 20 MG TAB PO SCH (08:46)
[2023-11-02] MEDS: Cholecalciferol 1,000 UNITS (25 MCG) TAB PO SCH ×3 (08:46→21:23)
[2023-11-02] MEDS: NIFEdipine XL 60 MG ER.TAB PO SCH ×2 (08:46→21:23)
[2023-11-02] MEDS: Sevelamer Carbonate 800 MG TAB PO SCH ×3 (08:46→16:23)
[2023-11-02] MEDS ORDERED: Ascorbic Acid 500 mg Chewable Tablet PO SCH (09:00)
[2023-11-02] MEDS ORDERED: Carvedilol 6.25 MG TAB PO SCH ×2 (09:00→17:00)
[2023-11-02] MEDS: Multivitamin W/ Minerals 1 TAB PO SCH (11:07)
[2023-11-02] MEDS: Heparin 5,000 UNITS/ML VIAL SC SCH (21:24)
[2023-11-02] MEDS: Melatonin 3 MG TAB PO SCH (21:31)
[2023-11-03 04:52] LABS: #Basophils 0.1 thou/uL (0.0-0.2); #Eosinphils 0.7 thou/uL (0.0-0.7); #Monocytes 0.9 thou/uL (0.11-0.59); #Neutrophils 4.4 thou/uL (1.40-6.50); %Basophils 0.6 % (0.0-1.0); %Eosinophils 8.1 % (0.0-10.0); %Lymphocytes 27.2 % (21.0-51.0); %Monocytes 10.6 % (0.0-10.0); %Neutrophils 53.1 % (42.0-75.0); Hematocrit 35.6 % (42.0-52.0); Hemoglobin 11.5 g/dL (14.0-18.0); Mean Corpuscular HGB CONC 32.3 g/dL (32.0-36.0); Mean Corpuscular Hemoglobin 30.5 pg (27.0-31.0); Mean Corpuscular Volume 94.4 fl (78.0-98.0); Mean Platelet Volume 11.2 fL (7.4-10.4); Platelet Count 240 10x3/uL (130-400); RBC Distribution Width 14.3 % (11.5-14.5); Red Blood Cell (RBC) Count 3.77 mill/uL (4.70-6.10); White Blood Cell (WBC) Count 8.3 10x3/uL (4.8-10.8)
[2023-11-03 05:21] LABS: Phosphorus 4.5 mg/dL (2.3-4.7)
[2023-11-03 05:22] LABS: ALT (SGPT) Less than 7 U/L (8-55); AST (SGOT) 16 U/L (5-34); Albumin 3.6 g/dL (3.4-4.8); Alkaline Phosphatase 79 U/L (40-110); Anion Gap 13 mmol/L (10-20); BUN (Urea Nitrogen) 68 mg/dL (8.4-25.7); Bilirubin, Total 0.5 mg/dL (0.2-1.2); Calc. Creatinine Clearance 26 mL/min (70-130); Calcium 9.1 mg/dL (7.8-10.44); Carbon Dioxide 25 mmol/L (23-31); Chloride 100 mmol/L (98-107); Estimated GFR 18; Glucose 149 mg/dL (80-115); Magnesium 2.4 mg/dL (1.6-2.6); Potassium 3.4 mmol/L (3.5-5.1); Protein, Total 7.6 g/dL (5.8-8.1); Sodium 135 mmol/L (136-145)
[2023-11-03] MEDS ORDERED: Potassium Chloride 20 MEQ TAB PO SCH (07:00)
[2023-11-03] MEDS: Famotidine 20 MG TAB PO SCH (08:25)
[2023-11-03] MEDS: Baclofen 10 MG TAB PO SCH ×3 (08:25→20:55)
[2023-11-03] MEDS: Cyanocobalamin (Vitamin B-12) 1,000 MCG TAB PO SCH (08:26)
[2023-11-03] MEDS: Zinc Sulfate 220 MG CAP PO SCH (08:26)
[2023-11-03] MEDS: Sertraline 100 MG TAB PO SCH (08:26)
[2023-11-03] MEDS: Folic Acid 1 MG TAB PO SCH (08:26)
[2023-11-03] MEDS: Tamsulosin HCl 0.4 MG CAP PO SCH (08:26)
[2023-11-03] MEDS: Ferrous Fumarate 324 MG TAB PO SCH (08:26)
[2023-11-03] MEDS: Sevelamer Carbonate 800 MG TAB PO SCH ×3 (08:26→18:42)
[2023-11-03] MEDS: Cholecalciferol 1,000 UNITS (25 MCG) TAB PO SCH ×3 (08:26→20:54)
[2023-11-03] MEDS: Heparin 5,000 UNITS/ML VIAL SC SCH ×3 (08:26→20:54)
[2023-11-03] MEDS: NIFEdipine XL 60 MG ER.TAB PO SCH ×2 (08:26→20:54)
[2023-11-03] MEDS ORDERED: Activase 2 MG VIAL CATH SCH (09:45)
[2023-11-03] MEDS ORDERED: Sterile Water 10 ML VIAL IVP SCH (09:45)
[2023-11-03] MEDS: Polyethylene Glycol 3350 17 GM Packet PO SCH (12:36)
[2023-11-03] MEDS: Aspirin Chewable 81 MG TAB PO SCH (12:36)
[2023-11-03] MEDS: Multivitamin W/ Minerals 1 TAB PO SCH (12:37)
[2023-11-03] MEDS: Mometasone 100 MCG/Formoterol 5 MCG 120 PUFF INHALER INH SCH ×2 (12:37→19:03)
[2023-11-03] MEDS: Ipratropium/Albuterol 3 ML NEB NEB SCH ×3 (12:37→19:01)
[2023-11-03 14:13] LABS: PTT 30.8 sec (22.9-36.1); Prothrombin Time 13.2 sec (12.0-14.7)
[2023-11-03] MEDS: Melatonin 3 MG TAB PO SCH (20:54)
[2023-11-04 04:34] LABS: #Basophils 0.1 thou/uL (0.0-0.2); #Eosinphils 0.6 thou/uL (0.0-0.7); #Monocytes 0.9 thou/uL (0.11-0.59); #Neutrophils 6.9 thou/uL (1.40-6.50); %Basophils 0.5 % (0.0-1.0); %Eosinophils 5.7 % (0.0-10.0); %Lymphocytes 20.5 % (21.0-51.0); %Monocytes 8.1 % (0.0-10.0); %Neutrophils 64.8 % (42.0-75.0); Hematocrit 30.8 % (42.0-52.0); Hemoglobin 9.9 g/dL (14.0-18.0); Mean Corpuscular HGB CONC 32.1 g/dL (32.0-36.0); Mean Corpuscular Hemoglobin 30.7 pg (27.0-31.0); Mean Corpuscular Volume 95.4 fl (78.0-98.0); Mean Platelet Volume 10.9 fL (7.4-10.4); Platelet Count 225 10x3/uL (130-400); RBC Distribution Width 14.3 % (11.5-14.5); Red Blood Cell (RBC) Count 3.23 mill/uL (4.70-6.10); White Blood Cell (WBC) Count 10.6 10x3/uL (4.8-10.8)
[2023-11-04 05:09] LABS: ALT (SGPT) Less than 7 U/L (8-55); AST (SGOT) 14 U/L (5-34); Albumin 3.4 g/dL (3.4-4.8); Alkaline Phosphatase 74 U/L (40-110); Anion Gap 12 mmol/L (10-20); BUN (Urea Nitrogen) 81 mg/dL (8.4-25.7); Bilirubin, Total 0.3 mg/dL (0.2-1.2); Calc. Creatinine Clearance 21 mL/min (70-130); Calcium 8.8 mg/dL (7.8-10.44); Carbon Dioxide 28 mmol/L (23-31); Chloride 103 mmol/L (98-107); Estimated GFR 14; Globulin 3.8 g/dL (2.4-3.5); Glucose 171 mg/dL (80-115); Magnesium 2.5 mg/dL (1.6-2.6); Potassium 4.1 mmol/L (3.5-5.1); Protein, Total 7.2 g/dL (5.8-8.1); Sodium 139 mmol/L (136-145)
[2023-11-04] MEDS ORDERED: PROPOFOL 20 ML ONE (07:37)
[2023-11-04] MEDS ORDERED: Lidocaine 2% PF 5 ML VIAL ONE (07:52)
[2023-11-04] MEDS ORDERED: EPINEPHrine 1 MG/ML VIAL ONE (07:52)
[2023-11-04] MEDS ORDERED: Bupivacaine 0.25% HCL 30 ML VIAL ONE (07:52)
[2023-11-04] MEDS ORDERED: Heparin 10,000 UNITS/ 10 ML VIAL ONE ×2 (07:53→13:01)
[2023-11-04] MEDS ORDERED: CEFAZOLIN 2 GM VIAL ONE (08:07)
[2023-11-04] MEDS ORDERED: Sodium Chloride 0.9% 100 ML ONE (08:07)
[2023-11-04] MEDS ORDERED: ePHEDrine Sulfate 50 MG/10 ML VIAL ONE (08:20)
[2023-11-04] MEDS: Ipratropium/Albuterol 3 ML NEB NEB SCH ×3 (08:24→18:54)
[2023-11-04] MEDS: Mometasone 100 MCG/Formoterol 5 MCG 120 PUFF INHALER INH SCH ×2 (08:25→18:56)
[2023-11-04] MEDS ORDERED: Glycopyrrolate 0.2 MG/ML 5 ML SYRINGE ONE (09:47)
[2023-11-04] MEDS ORDERED: Promethazine HCl 25 MG/ML VIAL IM PRN (10:03)
[2023-11-04] MEDS ORDERED: Ondansetron HCl/PF 4 MG/2 ML Vial IVP PRN (10:03)
[2023-11-04] MEDS: Sevelamer Carbonate 800 MG TAB PO SCH ×3 (10:53→18:17)
[2023-11-04] MEDS: Acetaminophen 325 MG TAB PO PRN ×2 (13:15→20:24)
[2023-11-04] MEDS: Baclofen 10 MG TAB PO SCH ×3 (16:45→20:23)
[2023-11-04] MEDS: Cholecalciferol 1,000 UNITS (25 MCG) TAB PO SCH ×3 (16:46→20:23)
[2023-11-04] MEDS: traMADol HCl 50 MG TAB PO PRN ×2 (16:46→22:36)
[2023-11-04] MEDS: Heparin 5,000 UNITS/ML VIAL SC SCH ×3 (16:47→20:23)
[2023-11-04] MEDS: Aspirin Chewable 81 MG TAB PO SCH (18:15)
[2023-11-04] MEDS: Sertraline 100 MG TAB PO SCH (18:16)
[2023-11-04] MEDS: Polyethylene Glycol 3350 17 GM Packet PO SCH (18:16)
[2023-11-04] MEDS: NIFEdipine XL 60 MG ER.TAB PO SCH ×2 (18:16→20:23)
[2023-11-04] MEDS: Folic Acid 1 MG TAB PO SCH (18:16)
[2023-11-04] MEDS: Cyanocobalamin (Vitamin B-12) 1,000 MCG TAB PO SCH (18:16)
[2023-11-04] MEDS: Tamsulosin HCl 0.4 MG CAP PO SCH (18:17)
[2023-11-04] MEDS: Zinc Sulfate 220 MG CAP PO SCH (18:17)
[2023-11-04] MEDS: Multivitamin W/ Minerals 1 TAB PO SCH (18:17)
[2023-11-04] MEDS: Melatonin 3 MG TAB PO SCH (20:23)
[2023-11-05 04:40] LABS: #Eosinphils 0.4 thou/uL (0.0-0.7); #Neutrophils 8.5 thou/uL (1.40-6.50); %Basophils 0.3 % (0.0-1.0); %Eosinophils 3.6 % (0.0-10.0); %Lymphocytes 15.6 % (21.0-51.0); %Monocytes 8.4 % (0.0-10.0); %Neutrophils 71.8 % (42.0-75.0); Hemoglobin 9.8 g/dL (14.0-18.0); Mean Corpuscular HGB CONC 32.7 g/dL (32.0-36.0); Mean Corpuscular Volume 94.9 fl (78.0-98.0); Mean Platelet Volume 10.7 fL (7.4-10.4); Platelet Count 232 10x3/uL (130-400); RBC Distribution Width 14.3 % (11.5-14.5); Red Blood Cell (RBC) Count 3.16 mill/uL (4.70-6.10); White Blood Cell (WBC) Count 11.8 10x3/uL (4.8-10.8)
[2023-11-05 05:04] LABS: ALT (SGPT) Less than 7 U/L (8-55); AST (SGOT) 12 U/L (5-34); Albumin 3.6 g/dL (3.4-4.8); Alkaline Phosphatase 80 U/L (40-110); Anion Gap 16 mmol/L (10-20); BUN (Urea Nitrogen) 39 mg/dL (8.4-25.7); Bilirubin, Total 0.4 mg/dL (0.2-1.2); Calc. Creatinine Clearance 29 mL/min (70-130); Calcium 8.7 mg/dL (7.8-10.44); Carbon Dioxide 23 mmol/L (23-31); Chloride 101 mmol/L (98-107); Estimated GFR 20; Globulin 3.8 g/dL (2.4-3.5); Glucose 124 mg/dL (80-115); Magnesium 2.2 mg/dL (1.6-2.6); Protein, Total 7.4 g/dL (5.8-8.1); Sodium 136 mmol/L (136-145)
[2023-11-05 05:10] LABS: Phosphorus 3.3 mg/dL (2.3-4.7)
[2023-11-05] MEDS: Mometasone 100 MCG/Formoterol 5 MCG 120 PUFF INHALER INH SCH (07:13)
[2023-11-05] MEDS: Ipratropium/Albuterol 3 ML NEB NEB SCH ×3 (07:13→21:42)
[2023-11-05] MEDS: Heparin 5,000 UNITS/ML VIAL SC SCH ×3 (09:04→20:32)
[2023-11-05] MEDS: Tamsulosin HCl 0.4 MG CAP PO SCH (09:05)
[2023-11-05] MEDS: NIFEdipine XL 60 MG ER.TAB PO SCH ×2 (09:05→20:32)
[2023-11-05] MEDS: Aspirin Chewable 81 MG TAB PO SCH (09:05)
[2023-11-05] MEDS: Zinc Sulfate 220 MG CAP PO SCH (09:05)
[2023-11-05] MEDS: Baclofen 10 MG TAB PO SCH ×3 (09:05→20:32)
[2023-11-05] MEDS: Sevelamer Carbonate 800 MG TAB PO SCH ×3 (09:05→17:43)
[2023-11-05] MEDS: Polyethylene Glycol 3350 17 GM Packet PO SCH (09:05)
[2023-11-05] MEDS: Cholecalciferol 1,000 UNITS (25 MCG) TAB PO SCH ×3 (09:06→20:32)
[2023-11-05] MEDS: Famotidine 20 MG TAB PO SCH (09:06)
[2023-11-05] MEDS: Sertraline 100 MG TAB PO SCH (09:06)
[2023-11-05] MEDS: Ferrous Fumarate 324 MG TAB PO SCH (09:06)
[2023-11-05] MEDS: Cyanocobalamin (Vitamin B-12) 1,000 MCG TAB PO SCH (09:06)
[2023-11-05] MEDS: Folic Acid 1 MG TAB PO SCH (09:06)
[2023-11-05] MEDS ORDERED: Heparin 10,000 UNITS/ 10 ML VIAL ONE (11:30)
[2023-11-05] MEDS: Multivitamin W/ Minerals 1 TAB PO SCH (11:33)
[2023-11-05] MEDS ORDERED: EPOETIN ALFA-EPBX (ESRD) 10,000 UNITS/ML VIAL IVP SCH (12:00)
[2023-11-05] MEDS: traMADol HCl 50 MG TAB PO PRN (20:33)
[2023-11-05] MEDS: Melatonin 3 MG TAB PO SCH (20:33)
[2023-11-05 22:58] VITALS: BP 139/64; TEMP 98.4
== END 2023-11-05 23:15 | disposition short-term general hospital (02) | DRG 673 ==
LOC: ERS 08:09 → ERHOLD 15:21 → 2NO 18:01 → OBSVTOIN 11-01 12:06
PROVIDERS: ADMIT Family Medicine; ATTEND Family Medicine
PROC: 5A1D70Z Performance of Urinary Filtration, Intermittent, Less than 6 Hours Per Day (ICD-10-PCS; 2023-10-31)
PROC: 0JH63XZ Insertion of Tunneled Vascular Access Device into Chest Subcutaneous Tissue and Fascia, Percutaneous Approach (ICD-10-PCS; principal; 2023-11-01)
PROC: 02HV33Z Insertion of Infusion Device into Superior Vena Cava, Percutaneous Approach (ICD-10-PCS; 2023-11-01)
PROC: 5A1D70Z Performance of Urinary Filtration, Intermittent, Less than 6 Hours Per Day (ICD-10-PCS; 2023-11-01)
PROC: 5A1D70Z Performance of Urinary Filtration, Intermittent, Less than 6 Hours Per Day (ICD-10-PCS; 2023-11-02)
PROC: 06HY33Z Insertion of Infusion Device into Lower Vein, Percutaneous Approach (ICD-10-PCS; 2023-11-04)
PROC: 3E033XZ Introduction of Vasopressor into Peripheral Vein, Percutaneous Approach (ICD-10-PCS; 2023-11-04)
PROC: 5A1D70Z Performance of Urinary Filtration, Intermittent, Less than 6 Hours Per Day (ICD-10-PCS; 2023-11-04)
DX: T82.49XA Other complication of vascular dialysis catheter, initial encounter (principal); N18.6 End stage renal disease; G82.20 Paraplegia, unspecified; I13.2 Hypertensive heart and chronic kidney disease with heart failure and with stage 5 chronic kidney disease, or end stage renal disease; I50.32 Chronic diastolic (congestive) heart failure; E11.22 Type 2 diabetes mellitus with diabetic chronic kidney disease; E78.5 Hyperlipidemia, unspecified; F32.A Depression, unspecified; G47.33 Obstructive sleep apnea (adult) (pediatric); J44.9 Chronic obstructive pulmonary disease, unspecified; D63.8 Anemia in other chronic diseases classified elsewhere; Z99.2 Dependence on renal dialysis; Z79.51 Long term (current) use of inhaled steroids; Z79.899 Other long term (current) drug therapy; Z79.82 Long term (current) use of aspirin; Z98.890 Other specified postprocedural states; Z99.3 Dependence on wheelchair; Z79.4 Long term (current) use of insulin
CPT/HCPCS: 36415; 36416; 71045; 80053; 83735; 84100; 85025; 85610; 85730; 86706; 87340; 90935; 93005; 93010; 93306; 94640; 97139; C1752; G0257; G0378; J0171; J0665; J1642; J1644; J2001; J2250; J2704; J2997; J3010; J3490; J7620; Q5105